=== PATIENT | female | born 1950 | race Caucasian/White ===

== ENCOUNTER 2019-12-31 17:35 | Emergency (ER) | payer MEDICARE, MEDICAID, SELFPAY ==
[2019-12-31] VITALS (7 sets, daily range): BP systolic 128–185; BP diastolic 70–96; PULSE 61–101; RESP 16–28; TEMP 36.3; O2SAT 94–96; BMI 30.9
--- NOTE | 2019-12-31 18:16 | CTR_ITS ---
PROCEDURE INFORMATION: Exam: CT Abdomen And Pelvis With Contrast Exam date and time: 12/31/2019 7:43 PM Age: 69 years old Clinical indication: Nausea and vomiting and other: Explosive black diarrhea; Abdominal pain; Localized; Right; Prior surgery; Surgery type: Gb TECHNIQUE: Imaging protocol: Computed tomography of the abdomen and pelvis with intravenous contrast. Radiation optimization: All CT scans at this facility use at least one of these dose optimization techniques: automated exposure control; mA and/or kV adjustment per patient size (includes targeted exams where dose is matched to clinical indication); or iterative reconstruction. Contrast material: VISI 320; Contrast volume: 95 ml; Contrast route: INTRAVENOUS (IV); COMPARISON: No relevant prior studies available. RADIATION DOSE METRICS: Total DLP (mGy-cm): 1495.49 FINDINGS: Lungs: Limited assessment lung bases fails to reveal evidence for active cardiopulmonary process. Coronary artery disease. No visible pericardial effusion. Liver: Left hepatic lobe cysts the largest measuring 3.9 cm x 3.3 cm. The dominant cyst contains few peripheral wall calcifications. Overall benign appearance. No visible hepatic mass. Gallbladder and bile ducts: Status post cholecystectomy. No visible abnormal intra or extrahepatic biliary ectasia. Pancreas: Pancreas unremarkable. No visible pancreatic ductal ectasia. Spleen: Normal. No splenomegaly. Adrenals: Adrenal glands unremarkable. Kidneys and ureters: Suspected non obstructing calyceal nephrolithiasis focus inferior pole left kidney under 5 mm. No hydronephrosis or perinephric fluid bilaterally. Renal arterial sclerosis. Stomach and bowel: Diverticulosis coli without current visible evidence of acute diverticulitis. Nonobstructive bowel pattern. No visible adynamic or reactive ileus. Appendix: No evidence of appendicitis. Intraperitoneal space: Unremarkable. No free air. No significant fluid collection. Vasculature: The abdominal aorta is nonaneurysmal. Moderate arterial sclerotic disease. Lymph nodes: Unremarkable. No enlarged lymph nodes. Bladder: Unremarkable as visualized. Reproductive: Unremarkable as visualized. Bones/joints: Degenerative disease and degenerative disc disease of the spine most advanced L3/4, L4/L5, and L5/S1. Advanced degenerative disc disease with spondylosis deformans T10/T11. No acute osseous abnormality. Mild scoliosis. Soft tissues: Unremarkable. CT/CT abdomen pelvis w con* [id number] IMPRESSION: 1. Currently no visible evidence of acute abdominal or pelvic pathologic process. 2. Diverticulosis coli without visible evidence of acute diverticulitis. 3. No visible evidence of appendicitis. 4. Suspected nonobstructing calyceal nephrolithiasis focus inferior pole left kidney. 5. Left hepatic lobe cysts. Radiation Dose CTDIVOL = (mGy): DLP = 1495.49 (mGy-cm)
[2019-12-31] MEDS: ondansetron 2 mg/ML SDV 2 mL 4 MG IVP (18:36)
[2019-12-31] MEDS: morphine 4 mg/mL SDV 1 mL IVP ×2 (18:37→19:28)
[2019-12-31] MEDS: sodium chloride 0.9% 1,000 ML 999 ML IV (18:38)
[2019-12-31 18:50] LABS: Basophils # 0.1 10^3/uL (0.0-0.1); Basophils % 0.6 %; Eosinophils # 0.3 10^3/uL (0.0-0.8); Eosinophils % 2.6 %; Hematocrit 50.5 % (37.0-47.0); Hemoglobin 16.8 g/dL (11.5-15.3); Lymphocytes # 2.4 10^3/uL (0.8-4.8); Lymphocytes % 22.3 %; Mean Corpuscular HGB Conc 33.3 g/dL (30.0-36.0); Mean Corpuscular Hemoglobin 30.9 pg (28.0-34.0); Mean Platelet Volume 8.5 fL (7.4-10.4); Monocytes # 0.8 10^3/uL (0.2-0.9); Monocytes % 7.6 %; Neutrophils # 7.04 10^3/uL (1.8-7.7); Neutrophils % 66.3 %; Nucleated Red Blood Cells % 0 %; Platelet Count 517 10^3/cmm (130-400); Red Blood Count 5.43 10^6/uL (4.1-5.3); Red Cell Distribution Width 14.7 % (12.1-15.1); White Blood Count 10.6 10^3/uL (4.0-10.0)
[2019-12-31] MEDS: lactated ringers 1,000 ML 999 ML IV (19:10)
[2019-12-31 19:18] LABS: INR 1.03 (0.8-1.2)
[2019-12-31 19:22] LABS: Lactate (Lactic Acid level) 1.4 mmol/L (0.5-2.2)
[2019-12-31 19:23] LABS: Alanine Aminotransferase 33 U/L (0-33); Alkaline Phosphatase 91 IU/L (35-105); Aspartate Amino Transferase 29 U/L (0-32); Blood Urea Nitrogen 25 mg/dL (8-23); Calcium 10.5 mg/dL (8.5-10.5); Carbon Dioxide 14 mmol/L (22-29); Chloride 106 mmol/L (98-107); Creatinine Clr Calc Pharmacy 53.3379; Glucose 103 mg/dL (65-115); Lipase 58 U/L (13-60); Osmolality Calculated 277 mOsm/kg (285-295); Sodium 135 mmol/L (136-145); Total Bilirubin 0.6 mg/dL (0.15-1.2)
--- NOTE | 2019-12-31 19:25 | ED_ITS ---
HPI - Abdominal Pain General: Chief Complaint: Abdominal Pain Stated Complaint: abd pain, diarrhea, black stools Time Seen by Provider: 12/31/19 18:25 Source: patient Mode of arrival: ambulatory Limitations: no limitations History of Present Illness: HPI narrative: Ms. Rodas is a nice 69-year-old female who comes in complaining of abdominal pain and diarrhea. She states her diarrhea is dark almost black in nature. She is had associated nausea and vomiting. She took 1 dose of Pepto-Bismol this morning and her diarrhea has stopped. She continues to complain of generalized abdominal pain and nauseousness. She denies any chest pain or shortness of breath. She denies any fevers or chills. She denies any urinary symptoms. She is unaware of anything that makes her symptoms better or worse other than the Pepto-Bismol made her diarrhea stop. The patient states that the pain is the most significant factor and because of that she is come in for evaluation. Associated Symptoms: Reports diarrhea, nausea and vomiting; Denies chills, coffee ground emesis, constipation, GI cramping, dysuria, fever(s), heartburn, hematochezia, hematuria, hematemesis and syncope Review of Systems Const: Denies: fever(s), chills, body aches, fatigue, malaise or diaphoresis Eyes: Denies: change in vision, blurry vision, blind spots, photophobia, eye discharge or eye redness ENMT: Denies: throat pain, odynophagia, hoarseness, swelling of lips/tongue, oral sores, ear or mastoid pain, ear discharge, change in hearing or nasal discharge Card: Denies: chest pain, palpitations, irregular heart rhythm, edema, lightheadedness, syncope, pre-syncope, dyspnea on exertion or orthopnea Resp: Denies: dyspnea, productive cough, non-productive cough, wheezing, hemoptysis or chest congestion GI: Reports: abdominal pain, nausea, vomiting and diarrhea; Denies: hematemesis, coffee ground emesis, heartburn, constipation, GI cramping or hematochezia : Denies: flank pain, dysuria, urinary frequency, urinary urgency or hematuria Musc: Denies: neck pain, back pain, extremity pain, extremity swelling, joint pain, joint swelling, joint redness, joint warmth or joint stiffness Skin/Breast: Denies: rash, pruritus, erythema, skin tenderness or jaundice Neuro: Denies: headache(s), numbness in extremities, weakness in extremities, sensory changes, lack of coordination, difficulty walking, dizziness, vertigo, confusion, Slurred speech present or seizure-like activity Tres/Lymph: Denies: easy bruising, easy bleeding, petechiae, purpura or enlarged lymph nodes All/Imm: Denies: urticaria, throat swelling, tongue swelling, facial swelling or acute wheezing PFSH ED PFSH: Medical History Anxiety Depression Hyperlipidemia Panic attacks Surgical History History of facial surgery S/P cholecystectomy Social History Smoking and tobacco status: heavy tobacco smoker Alcohol intake: never Physical Exam Const: COMMON NORMALS: no acute distress, patient oriented x3, no limitations, healthy appearing and well nourished GENERAL APPEARANCE: cooperative, well ke mpt and well developed HENMT: COMMON NORMALS: normocephalic, atraumatic, external ears normal, EAC's normal and Normal external nose present HEAD & SCALP: normal to inspection, normocephalic and atraumatic FACE & SINUS: normal facial exam and face symmetric NOSE: Normal external nose present and Normal nares present EXTERNAL EAR: Yes external ears normal EXTERNAL AUDITORY CANAL: EAC's normal MOUTH: Normal oral and palatal mucosa present, lip normal and tongue normal Eye: COMMON NORMALS: Equal, round and reactive pupils present and conjunctivae normal GENERAL EYE: appearance normal, both eyes and all related structures ALIGNMENT: Yes alignment normal PERIORBITAL: periorbital findings normal EYELID: eyelids normal CONJUNCTIVA: Yes conjunctivae normal SCLERA: sclerae normal PUPIL: Yes Equal, round and reactive pupils present Neck/C-Spine: COMMON NORMALS: full ROM, no lymphadenopathy, supple, no meningeal signs and no JVD GENERAL: Yes normal visual inspection and Yes trachea midline Chest: COMMONS NORMALS: normal inspection of the chest and normal palpation of entire chest wall Resp: COMMON NORMALS: normal respiratory effort, No retractions and No use of accessory muscles EFFORT & INSPECTION: Yes able to speak in complete sentences and Yes symmetric chest movement AUSCULTATION: no crackles, no rales, no rhonchi and no wheezes Cardio: COMMON NORMALS: no JVD, regular rate, regular rhythm, S1 normal heart sound present and S2 normal heart sound present RATE: regular rate RHYTHM: regular rhythm HEART SOUNDS: S1 normal heart sound present, S2 normal heart sound present, no click, no gallops, no murmurs, no rubs and abnormal split S2 GI: COMMON NORMALS: Soft to palpation and No hepatosplenomegaly present PALPATION: Yes Soft to palpation, No Tenderness to palpation present (GI), No Guarding due to palpation present (GI), No Rigid due to palpation, Yes No hepatosplenomegaly present, No Hernia present, No Palpable mass present and No Pulsatile mass present RECTAL EXAM: visual inspection normal, normal sphincter tone, External hemorrhoid(s) present and heme negative stool : COMMON NORMALS: Yes no CVA tenderness BLADDER/KIDNEY EXAM: Yes no CVA tenderness EXTERNAL FEMALE EXAM: No Hernia present Back/Pelvis: COMMON NORMALS: no CVA tenderness, thoracic and lumbar spine normal to inspection, no thoracic nor lumbar tenderness and thoraco-lumbar ROM normal Extremity: COMMON NORMALS: normal to inspection, full ROM, capillary refill normal, no joint enlargement, no clubbing, cyanosis or edema and no calf tenderness Neuro: COMMON NORMALS: patient oriented x3, CN's II-XII intact bilaterally, moves all extremities, no focal motor deficits and no sensory deficits noted MENINGEAL SIGNS: Yes no meningeal signs SPEECH: speech normal Psych: COMMON NORMALS: mental status grossly normal, Normal thought process present, cooperative, normal affect, speech normal and activity/motor behavior normal APPEARANCE: Yes well kempt SPEECH: Yes normal speech THOUGHT PROCESS: Normal thought process present Skin: COMMON NORMALS: no rashes or lesions noted, turgor normal, no jaundice, no petechiae and no mottling GENERAL SKIN EXAM: no rashes or lesions noted and turgor normal Course Vital Signs: Vital signs: Vital Signs Temperature 97.4 F L 12/31/19 17:55 Pulse Rate 81 12/31/19 22:31 Respiratory Rate 18 12/31/19 22:31 Blood Pressure 163/90 12/31/19 22:31 Pulse Oximetry 95 12/31/19 22:31 MDM - Abdominal Pain MDM Narrative: Medical decision making narrative: Ms. Rodas is a nice 69-year-old female who comes in with cramping abdominal pain and diarrhea. She is no longer vomiting and her diarrhea has stopped. The patient had a negative Hemoccult test here with no evidence of blood in her stools. She is not anemic she is actually hemoconcentrated but has responded well to IV fluids. She has a non-gap metabolic acidosis and I have recommended she stay in the hospital for further hydration and monitoring but she refuses. She states she is feeling so much better she wants to go home. On a blood gas her bicarbonate did come up from her chemistry although not a direct comparison it does show improvement. I have offered her multiple times to be admitted but she declines. She does agree to return here tomorrow for recheck. I will empirically put her on Cipro and Flagyl and gave her her first dose here. She agrees to return in the morning for recheck. Patient is eating, drinking and shows no sign of abdominal pain any longer. Her abdominal exam is benign. She again has been offered admission but declines. Lab Data: Attestation: I reviewed the patient's lab results. Labs: Lab Results 12/31/19 12/31/19 12/31/19 Range/Units 18:35 18:35 18:35 WBC 10.6 H (4.0-10.0) 10^3/ uL RBC 5.43 H (4.1-5.3) 10^6/u L Hgb 16.8 H (11.5-15.3) g/dL Hct 50.5 H (37.0-47.0) % MCV 93.0 (81-99) fL MCH 30.9 (28.0-34.0) pg MCHC 33.3 (30.0-36.0) g/dL RDW 14.7 (12.1-15.1) % Plt Count 517 H (130-400) 10^3/c mm MPV 8.5 (7.4-10.4) fL Neut % (Auto) 66.3 % Lymph % (Auto) 22.3 % [place] % (Auto) 7.6 % Eos % (Auto) 2.6 % Baso % (Auto) 0.6 % Neut # (Auto) 7.04 (1.8-7.7) 10^3/u L Lymph # (Auto) 2.4 (0.8-4.8) 10^3/u L [place] # (Auto) 0.8 (0.2-0.9) 10^3/u L Eos # (Auto) 0.3 (0.0-0.8) 10^3/u L Baso # (Auto) 0.1 (0.0-0.1) 10^3/u L Nucleated RBC % (a uto) 0 % Nucleated RBCs # 0.0 /100WBC PT 13.80 (12.1-14.9) SECO NDS INR 1.03 (0.8-1.2) Specimen Type Sample Site ABG pH (7.35-7.45) ABG pCO2 (35-45) mmHg ABG pO2 (80.0-100.0) mmH g ABG HCO3 (22-26) mmol/L ABG Base Excess (-2.0-2.0) mmol/ L Sánchez Test Hematocrit (37-47) % O2 Delivery Device FiO2 % Associate Professor Of Medicine ID Sodium 135 L (136-145) mmol/L Potassium 4.3 (3.5-5.1) mmol/L Chloride 106 (98-107) mmol/L Carbon Dioxide 14 L (22-29) mmol/L Anion Gap 19.3 H (5-19) BUN 25 H (8-23) mg/dL Creatinine 1.0 H (0.5-0.9) mg/dL GFR Calculation Not Reportable Glucose 103 (65-115) mg/dL Calculated Osmolal ity 277 L (285-295) mOsm/k g Lactate (0.5-2.2) mmol/L Calcium 10.5 (8.5-10.5) mg/dL Total Bilirubin 0.6 (0.15-1.2) mg/dL AST 29 (0-32) U/L ALT 33 (0-33) U/L Alkaline Phosphata se 91 (35-105) IU/L Total Protein 8.0 (6.6-8.7) g/dL Albumin 5.0 (3.5-5.2) g/dL Globulin 3.0 (1.3-4.6) g/dL Lipase 58 (13-60) U/L Urine Color (Yellow) Urine Appearance (CLEAR) Urine pH (5-7) Ur Specific Gravit y (1.005-1.030) Urine Protein (Negative) Urine Glucose (UA) (Normal) Urine Ketones (Negative) Urine Blood (Negative) Urine Nitrate (Negative) Urine Bilirubin (NEGATIVE) Urine Urobilinogen (Negative) mg/dL Ur Leukocyte Carol Ann ase (Negative) Urine RBC (0-2) /hpf Urine WBC (0-5) /hpf Ur Squamous Epith Cells (0-5) Amorphous Sediment Urine Bacteria (NONE) 12/31/19 12/31/19 12/31/19 Range/Units 18:35 19:52 21:17 WBC (4.0-10.0) 10^3/ uL RBC (4.1-5.3) 10^6/u L Hgb (11.5-15.3) g/dL Hct (37.0-47.0) % MCV (81-99) fL MCH (28.0-34.0) pg MCHC (30.0-36.0) g/dL RDW (12.1-15.1) % Plt Count (130-400) 10^3/c mm MPV (7.4-10.4) fL Neut % (Auto) % Lymph % (Auto) % [place] % (Auto) % Eos % (Auto) % Baso % (Auto) % Neut # (Auto) (1.8-7.7) 10^3/u L Lymph # (Auto) (0.8-4.8) 10^3/u L [place] # (Auto) (0.2-0.9) 10^3/u L Eos # (Auto) (0.0-0.8) 10^3/u L Baso # (Auto) (0.0-0.1) 10^3/u L Nucleated RBC % (a uto) % Nucleated RBCs # /100WBC PT (12.1-14.9) SECO NDS INR (0.8-1.2) Specimen Type Arterial Sample Site Brachial, left ABG pH 7.29 L (7.35-7.45) ABG pCO2 39.1 (35-45) mmHg ABG pO2 58.1 L (80.0-100.0) mmH g ABG HCO3 18.6 L (22-26) mmol/L ABG Base Excess -7.5 L (-2.0-2.0) mmol/ L Sánchez Test Pos Hematocrit 50.0 H (37-47) % O2 Delivery Device None FiO2 21.0 % Associate Professor Of Medicine ID [id number] Sodium (136-145) mmol/L Potassium (3.5-5.1) mmol/L Chloride (98-107) mmol/L Carbon Dioxide (22-29) mmol/L Anion Gap (5-19) BUN (8-23) mg/dL Creatinine (0.5-0.9) mg/dL GFR Calculation Glucose (65-115) mg/dL Calculated Osmolal ity (285-295) mOsm/k g Lactate 1.4 (0.5-2.2) mmol/L Calcium (8.5-10.5) mg/dL Total Bilirubin (0.15-1.2) mg/dL AST (0-32) U/L ALT (0-33) U/L Alkaline Phosphata se (35-105) IU/L Total Protein (6.6-8.7) g/dL Albumin (3.5-5.2) g/dL Globulin (1.3-4.6) g/dL Lipase (13-60) U/L Urine Color Yellow (Yellow) Urine Appearance Cloudy (CLEAR) Urine pH 5 (5-7) Ur Specific Gravit y 1.015 (1.005-1.030) Urine Protein Neg (Negative) Urine Glucose (UA) Norm (Normal) Urine Ketones Negative (Negative) Urine Blood Neg (Negative) Urine Nitrate Negative (Negative) Urine Bilirubin Neg (NEGATIVE) Urine Urobilinogen Norm (Negative) mg/dL Ur Leukocyte Carol Ann ase Negative (Negative) Urine RBC 0-4 H (0-2) /hpf Urine WBC 0-4 H (0-5) /hpf Ur Squamous Epith Cells 5-10 H (0-5) Amorphous Sediment Not Reportable Urine Bacteria 1+ H (NONE) Imaging Data ^: CT Abd/Pel: Radiologist's impression: [address] [address] [address] Scan Report Signed Patient: Sindhu Rodas Unit #: [id number] : 1950 Age/Sex: 69 / F ADM Date: 08/03/20 Loc: ER Room/Bed: Attending Dr: Ordering Provider/Ordering MD: Óscar Ho DO Date of Service: 12/31/19 Procedure(s): CT abdomen pelvis w con* [id number] Accession Number(s): [id number] Report Number: [id number] PROCEDURE INFORMATION: Exam: CT Abdomen And Pelvis With Contrast Exam date and time: 12/31/2019 7:43 PM Age: 69 years old Clinical indication: Nausea and vomiting and other: Explosive black diarrhea; Abdominal pain; Localized; Right; Prior surgery; Surgery type: Gb TECHNIQUE: Imaging protocol: Computed tomography of the abdomen and pelvis with intravenous contrast. Radiation optimization: All CT scans at this facility use at least one of these dose optimization techniques: automated exposure control; mA and/or kV adjustment per patient size (includes targeted exams where dose is matched to clinical indication); or iterative reconstruction. Contrast material: VISI 320; Contrast volume: 95 ml; Contrast route: INTRAVENOUS (IV); COMPARISON: No relevant prior studies available. RADIATION DOSE METRICS: Total DLP (mGy-cm): 1495.49 FINDINGS: Lungs: Limited assessment lung bases fails to reveal evidence for active cardiopulmonary process. Coronary artery disease. No visible pericardial effusion. Liver: Left hepatic lobe cysts the largest measuring 3.9 cm x 3.3 cm. The dominant cyst contains few peripheral wall calcifications. Overall benign appearance. No visible hepatic mass. Gallbladder and bile ducts: Status post cholecystectomy. No visible abnormal intra or extrahepatic biliary ectasia. Pancreas: Pancreas unremarkable. No visible pancreatic ductal ectasia. Spleen: Normal. No splenomegaly. Adrenals: Adrenal glands unremarkable. Kidneys and ureters: Suspected non obstructing calyceal nephrolithiasis focus inferior pole left kidney under 5 mm. No hydronephrosis or perinephric fluid bilaterally. Renal arterial sclerosis. Stomach and bowel: Diverticulosis coli without current visible evidence of acute diverticulitis. Nonobstructive bowel pattern. No visible adynamic or reactive ileus. Appendix: No evidence of appendicitis. Intraperitoneal space: Unremarkable. No free air. No significant fluid collection. Vasculature: The abdominal aorta is nonaneurysmal. Moderate arterial sclerotic disease. Lymph nodes: Unremarkable. No enlarged lymph nodes. Bladder: Unremarkable as visualized. Reproductive: Unremarkable as visualized. Bones/joints: Degenerative disease and degenerative disc disease of the spine most advanced L3/4, L4/L5, and L5/S1. Advanced degenerative disc disease with spondylosis deformans T10/T11. No acute osseous abnormality. Mild scoliosis. Soft tissues: Unremarkable. CT/CT abdomen pelvis w con* [id number] IMPRESSION: 1. Currently no visible evidence of acute abdominal or pelvic pathologic process. 2. Diverticulosis coli without visible evidence of acute diverticulitis. 3. No visible evidence of appendicitis. 4. Suspected nonobstructing calyceal nephrolithiasis focus inferior pole left kidney. 5. Left hepatic lobe cysts. Radiation Dose CTDIVOL = (mGy): DLP = 1495.49 (mGy-cm) Dictated By: Bowen De La Cruz Signed By: Bowen De La Cruz Signed Date/Time: 12/31/192103 DD/ 02 EKG Data ^: EKG 1: Attestation: I personally reviewed and interpreted this EKG as follows: EKG interpretation date: 12/31/19 EKG interpretation time: 19:38 Interpretation: Normal sinus rhythm at 89 beats a minute, no acute ST-T wave changes, no blocks, normal intervals. Discharge Plan Discharge Patient Disposition: Home Clinical Impression: Abdominal pain Qualifiers: Abdominal location: generalized Qualified Code(s): R10.84 - Generalized abdominal pain Diarrhea Qualifiers: Diarrhea type: unspecified type Qualified Code(s): R19.7 - Diarrhea, unspecified Condition: Stable Prescriptions: New Flagyl 500 mg tablet 500 mg PO Q8H 7 Days Qty: 21 RF: 0 Cipro 500 mg tablet 500 mg PO BID Qty: 20 RF: 0 No Action Zyrtec 10 mg Tablet 10 mg PO DAILY RF: 0 tizanidine 4 mg tablet 4 mg PO TID PRN (Reason: UNKNOWN) RF: 0 simvastatin 10 mg tablet 10 mg PO BEDTIME RF: 0 venlafaxine 150 mg capsule,extended release 24hr 150 mg PO DAILY RF: 0 Aspir-81 81 mg Tablet,Delayed Release (Dr/Ec) 81 mg PO DAILY RF: 0 meclizine 25 mg tablet 25 mg PO TID PRN (Reason: UNKNOWN) RF: 0 gemfibrozil 600 mg tablet 600 mg PO BID RF: 0 Aleve 220 mg Tablet 220 mg PO PRN RF: 0 ibuprofen 200 mg Tablet 800 mg PO PRN RF: 0 montelukast 10 mg tablet 10 mg PO DAILY PRN (Reason: UNKNOWN) RF: 0 Ventolin HFA 90 mcg/actuation HFA aerosol inhaler 2 puff INHALATION Q4H PRN (Reason: Shortness Of Breath) RF: 0 lisinopril 40 mg tablet 40 mg PO DAILY RF: 0 diazepam 5 mg tablet 5 mg PO BID PRN (Reason: UNKNOWN) RF: 0 azelastine 0.15 % (205.5 mcg) spray,non-aerosol 2 spray INTRANASAL BID PRN (Reason: UNKNOWN) RF: 0 Coricidin HBP Cold and Flu See Rx Instructions .ROUTE .COMPLEX RF: 0 Discharge Orders: Discharge Order (Routine); Ordered 12/31/19 Ordered By: Brit Cheng Referrals: Brit Cheng [Emergency Provider] - 1-3 days (Return here to the ER tomorrow morning for recheck of your blood work and a repeat abdominal exam. Return sooner for any worsening of your symptoms.) Cornelius Pepper DO [Primary Care Provider] - 1-3 days Discharge Diet: Advance as tolerated and Clear Liquid Discharge Activity: Increase activity as tolerated Patient Instructions: Acute Diarrhea (ED), Abdominal Pain (ED) Activity Restrictions/Additional Instructions: Please return to the ER immediately for any of the signs or symptoms listed on your discharge instruction sheets, worsening/changing of your symptoms, you are not getting better as quickly as expected, or for ANY other cause or concerns. You have been offered admission and further hydration and evaluation and care here but have declined. It is imperative that she follow-up tomorrow morning for recheck. If you develop any new symptoms at all or any worsening of your symptoms please return here to the ER immediately for recheck. Discharge Date/Time: 12/31/19 22:32 Coding Level of Care Code ED Cost Recovery Technician for Amyg Fwd Exam Comprehensive
--- NOTE | 2019-12-31 19:27 | ECG_ITS ---
[facility] [place] Date: 2019-12-31 Pat Name: Sindhu Rodas Department: Room: Gender: Female Color Coater: : 1950 Requested By: Brit Roman Order Number: [id number] Eugenie MD: Kandice Lubin M.D. Measurements Intervals [place] Rate: 89 P: 55 KS: 133 QRS: 15 QRSD: 100 T: 48 QT: 380 QTc: 463 Interpretive Statements SINUS RHYTHM No previous ECG available for comparison Nonspecific T wave changes Electronically Signed On 12-31-2019 20:34:53 CDT by Kandice Lubin M.D. [id number]
[2019-12-31] MEDS: metoclopramide 5 mg/mL SDV 2 mL 10 MG IV (19:28)
[2019-12-31 19:36] LABS: Anion Gap 19.3 (5-19)
[2019-12-31 19:37] LABS: Potassium 4.3 mmol/L (3.5-5.1)
[2019-12-31] MEDS: iodixanol 320 mg/mL 100mL Btl IV (20:23)
[2019-12-31 20:24] LABS: Add Urine Microscopic? YES; Bacteria Urine 1+; Bilirubin Urine Neg (NEGATIVE); Blood Urine Neg (Negative); Glucose Urine UA Norm (Normal); Ketones Urine Negative (Negative); Leukocyte Esterase Urine Negative (Negative); Nitrate Urine Negative (Negative); Protein Urine Neg (Negative); RBC Urine 0-4 /hpf (0-2); Specific Gravity, Urine 1.015 (1.005-1.030); Urine Appearance Cloudy (CLEAR); Urine Color Yellow (Yellow); Urobilinogen Urine Norm (Negative); WBC Urine 0-4 /hpf (0-5); pH Urine 5 (5-7)
[2019-12-31 21:25] LABS: ABG PCO2 39.1 mmHg (35-45); ABG PH Result 7.29 (7.35-7.45); Base Excess ABG -7.5 mmol/L (-2.0-2.0); Blood Gas Allen Test Pos; Blood Gas Sample Site Brachial, left; Blood Gas Sample Type Arterial; HCO3 ABG 18.6 mmol/L (22-26); PO2 ABG 58.1 mmHg (80.0-100.0)
[2019-12-31] MEDS: dicyclomine 20 mg Tablet PO (22:02)
[2019-12-31] MEDS: ciprofloxacin 500 mg Tablet PO (22:30)
[2019-12-31] MEDS: metroNIDAZOLE 500 MG Tablet PO (22:30)
--- NOTE | 2020-01-01 12:07 | PC.NURSE ---
[facility] pharmacy called to report prescribed cipro is contrandicated with pt's tizanidine. Per verbal order of Dr. Webster, prescription changed to Levaquin 500mg PO daily *7 days.
== END 2019-12-31 22:32 | disposition home or self-care (01) ==
PROVIDERS: Family Medicine; Emergency Provider Emergency Medicine; PCP Internal Medicine
DX: R10.84 Generalized abdominal pain (principal); R19.7 Diarrhea, unspecified; Z79.82 Long term (current) use of aspirin; E78.5 Hyperlipidemia, unspecified; F17.210 Nicotine dependence, cigarettes, uncomplicated
CPT/HCPCS: 12345; 36415; 36600; 74177; 80053; 81001; 81003; 82272; 82803; 83605; 83690; 85025; 85610; 93005; 96365; 96375; 96376; 99283; 99284; J2270; J2405; J2765; J7030; Q9967

== ENCOUNTER 2020-01-01 15:13 | Emergency (ER) | payer MEDICARE, MEDICAID, SELFPAY ==
[2020-01-01 15:26] VITALS: BP 128/72; PULSE 84; RESP 18; TEMP 36.6; O2SAT 94; BMI 30.9
[2020-01-01 16:07] VITALS: PULSE 77; RESP 16; O2SAT 94
[2020-01-01 16:12] LABS: Basophils # 0.1 10^3/uL (0.0-0.1); Basophils % 0.6 %; Eosinophils # 0.2 10^3/uL (0.0-0.8); Eosinophils % 2.9 %; Hematocrit 47.5 % (37.0-47.0); Hemoglobin 15.3 g/dL (11.5-15.3); Lymphocytes # 1.5 10^3/uL (0.8-4.8); Lymphocytes % 17.7 %; Mean Corpuscular HGB Conc 32.2 g/dL (30.0-36.0); Mean Corpuscular Hemoglobin 30.4 pg (28.0-34.0); Mean Corpuscular Volume 94.4 fL (81-99); Mean Platelet Volume 8.4 fL (7.4-10.4); Monocytes # 0.6 10^3/uL (0.2-0.9); Monocytes % 6.7 %; Neutrophils # 5.97 10^3/uL (1.8-7.7); Neutrophils % 71.7 %; Nucleated Red Blood Cells % 0 %; Platelet Count 451 10^3/cmm (130-400); Red Blood Count 5.03 10^6/uL (4.1-5.3); Red Cell Distribution Width 14.9 % (12.1-15.1); White Blood Count 8.3 10^3/uL (4.0-10.0)
[2020-01-01 16:20] LABS: Add Urine Microscopic? YES; Bilirubin Urine Neg (NEGATIVE); Blood Urine Neg (Negative); Glucose Urine UA Norm (Normal); Ketones Urine Negative (Negative); Leukocyte Esterase Urine Trace (Negative); Nitrate Urine Negative (Negative); Protein Urine Neg (Negative); Urine Appearance Clear (CLEAR); Urine Color Yellow (Yellow); Urobilinogen Urine 1 mg/dL (Negative); pH Urine 5 (5-7)
[2020-01-01 16:22] LABS: Add Urine Culture? No; Bacteria Urine TRACE; Mucus Urine TRACE; RBC Urine 0-4 /hpf (0-2); Squamous Epithelial Cell Urine 15-25 (0-5)
[2020-01-01 16:31] LABS: Blood Gas Allen Test Pos; Blood Gas Operator Identificat MONRO; Blood Gas Sample Type Venous; Lactate (Lactic Acid level) 0.9 mmol/L (0.5-2.2); Oxygen Device ROOM AIR
[2020-01-01 16:34] LABS: Base Excess VBG -4.4 mmol/L (-3.0-3.0); HCO3 VBG 18.7 mmol/L (24-28); pH VBG 7.41 (7.32-7.42)
[2020-01-01 16:41] LABS: Procalcitonin 0.05 ng/mL (0-0.5)
[2020-01-01 16:52] LABS: Alanine Aminotransferase 36 U/L (0-33); Albumin Level 4.5 g/dL (3.5-5.2); Alkaline Phosphatase 87 IU/L (35-105); Anion Gap 15.3 (5-19); Aspartate Amino Transferase 27 U/L (0-32); Blood Urea Nitrogen 18 mg/dL (8-23); C Reactive Protein 6.4 mg/L (0.0-4.9); Calcium 9.4 mg/dL (8.5-10.5); Carbon Dioxide 17 mmol/L (22-29); Chloride 108 mmol/L (98-107); Creatinine Clr Calc Pharmacy 66.6724; Globulin 3.3 g/dL (1.3-4.6); Glucose 134 mg/dL (65-115); Lipase 59 U/L (13-60); Osmolality Calculated 280 mOsm/kg (285-295); Potassium 4.3 mmol/L (3.5-5.1); Sodium 136 mmol/L (136-145); Total Bilirubin 0.6 mg/dL (0.15-1.2); Total Protein 7.8 g/dL (6.6-8.7)
[2020-01-01 17:00] VITALS: BP 153/87; PULSE 75; RESP 18; O2SAT 92
--- NOTE | 2020-01-01 17:22 | ED_ITS ---
HPI - Abdominal Pain General: Chief Complaint: Abdominal Pain Stated Complaint: was told to come back by jaida Time Seen by Provider: 01/01/20 15:33 History of Present Illness: HPI narrative: This patient is a 69-year-old female who is returning today for recheck after an ED visit yesterday. She was seen yesterday evening by Dr. Umanzor for abdominal pain and diarrhea. She was acidotic with some abnormal labs and he wanted to admit her. She did not want to stay and he letter to go home with the Lulu so that she return today for reevaluation. She said she is feeling better. She is getting her antibiotics filled. Of note the pharmacy called and asked to change her Cipro due to interactions with her other medications and I did change that to Levaquin. She has never had any similar stomach problems. We did talk about the possibility of COVID which can present with diarrhea. She said she really has just been staying home, has not been to the store to [employer]. However she was agreeable to a COVID test. MD elicited complaint: abdominal pain Pertinent past history: none Associated Symptoms: Reports diarrhea and nausea Review of Systems GI: Reports: abdominal pain, nausea and diarrhea [facility] ED [facility]: Medical History (Updated 01/01/20 @ 17:12 by Ella Webster MD) Anxiety Depression Hyperlipidemia Panic attacks Surgical History History of facial surgery S/P cholecystectomy Social History Smoking and tobacco status: heavy tobacco smoker Alcohol intake: never Physical Exam Const: COMMON NORMALS: no acute distress, patient oriented x3, no limitations and alert GENERAL APPEARANCE: cooperative and comfortable HENMT: HEAD & SCALP: normal to inspection FACE & SINUS: normal facial exam Eye: GENERAL EYE: appearance normal, both eyes and all related structures Neck/C-Spine: COMMON NORMALS: supple, no meningeal signs and no JVD Chest: COMMONS NORMALS: normal inspection of the chest Resp: COMMON NORMALS: normal respiratory effort, No use of accessory muscles and clear to auscultation bilaterally AUSCULTATION: clear to auscultation bilaterally Cardio: COMMON NORMALS: no JVD, regular rate, regular rhythm and No murmurs present (Cardio) RATE: regular rate RHYTHM: regular rhythm GI: COMMON NORMALS: Normal to inspection, nondistended, normoactive bowel sounds present and Soft to palpation INSPECTION: Yes normal to inspection AUSCULTATION: Yes normoactive bowel sounds PALPATION: Yes Soft to palpation and Yes Tenderness to palpation present (GI) (Mild) Details: RUQ Back/Pelvis: COMMON NORMALS: thoracic and lumbar spine normal to inspection Extremity: COMMON NORMALS: normal to inspection Neuro: COMMON NORMALS: patient oriented x3, moves all extremities, no focal motor deficits and no sensory deficits noted SENSORIUM/ORIENTATION: Yes alert MENINGEAL SIGNS: Yes no meningeal signs Psych: COMMON NORMALS: mental status grossly normal, cooperative and normal affect Skin: COMMON NORMALS: no rashes or lesions noted and turgor normal GENERAL SKIN EXAM: no rashes or lesions noted and turgor normal Course ED course: Labs were repeated. Blood counts are still good. Acidosis has improved with a normal pH on a venous blood gas. CO2 on the chemistry went from 14-17. She is feeling better and tolerating food and fluids. I am going to let her go home but she again understands to return if worse in any way or if not improving. A COVID test was obtained and sent. Vital Signs: Vital signs: Vital Signs Temperature 97.9 F 01/01/20 15:26 Pulse Rate 77 01/01/20 16:07 Respiratory Rate 16 01/01/20 16:07 Blood Pressure 128/72 01/01/20 15:26 Pulse Oximetry 94 01/01/20 16:07 MDM - Abdominal Pain Lab Data: Labs: Lab Results 01/01/20 01/01/20 01/01/20 Range/Units 15:53 16:05 16:05 WBC 8.3 (4.0-10.0) 10^3/ uL RBC 5.03 (4.1-5.3) 10^6/u L Hgb 15.3 (11.5-15.3) g/dL Hct 47.5 H (37.0-47.0) % MCV 94.4 (81-99) fL MCH 30.4 (28.0-34.0) pg MCHC 32.2 (30.0-36.0) g/dL RDW 14.9 (12.1-15.1) % Plt Count 451 H (130-400) 10^3/c mm MPV 8.4 (7.4-10.4) fL Neut % (Auto) 71.7 % Lymph % (Auto) 17.7 % Bartholomew % (Auto) 6.7 % Eos % (Auto) 2.9 % Baso % (Auto) 0.6 % Neut # (Auto) 5.97 (1.8-7.7) 10^3/u L Lymph # (Auto) 1.5 (0.8-4.8) 10^3/u L Bartholomew # (Auto) 0.6 (0.2-0.9) 10^3/u L Eos # (Auto) 0.2 (0.0-0.8) 10^3/u L Baso # (Auto) 0.1 (0.0-0.1) 10^3/u L Nucleated RBC % (a uto) 0 % Nucleated RBCs # 0.0 /100WBC Specimen Type Sánchez Test VBG pH (7.32-7.42) VBG pCO2 (41-51) mmHg VBG pO2 (25-40) mmHg VBG HCO3 (24-28) mmol/L VBG Base Excess (-3.0-3.0) mmol/ L O2 Delivery Device FiO2 % Senior Qa Tester ID Sodium 136 (136-145) mmol/L Potassium 4.3 (3.5-5.1) mmol/L Chloride 108 H (98-107) mmol/L Carbon Dioxide 17 L (22-29) mmol/L Anion Gap 15.3 (5-19) BUN 18 (8-23) mg/dL Creatinine 0.8 (0.5-0.9) mg/dL GFR Calculation Not Reportable Glucose 134 H (65-115) mg/dL Calculated Osmolal ity 280 L (285-295) mOsm/k g Lactate (0.5-2.2) mmol/L Calcium 9.4 (8.5-10.5) mg/dL Total Bilirubin 0.6 (0.15-1.2) mg/dL AST 27 (0-32) U/L ALT 36 H (0-33) U/L Alkaline Phosphata se 87 (35-105) IU/L C-Reactive Protein 6.4 H (0.0-4.9) mg/L Total Protein 7.8 (6.6-8.7) g/dL Albumin 4.5 (3.5-5.2) g/dL Globulin 3.3 (1.3-4.6) g/dL Lipase 59 (13-60) U/L Procalcitonin 0.05 (0-0.5) ng/mL Urine Color Yellow (Yellow) Urine Appearance Clear (CLEAR) Urine pH 5 (5-7) Ur Specific Gravit y 1.020 (1.005-1.030) Urine Protein Neg (Negative) Urine Glucose (UA) Norm (Normal) Urine Ketones Negative (Negative) Urine Blood Neg (Negative) Urine Nitrate Negative (Negative) Urine Bilirubin Neg (NEGATIVE) Urine Urobilinogen 1 H (Negative) mg/dL Ur Leukocyte Carol Ann ase Trace H (Negative) Urine RBC 0-4 H (0-2) /hpf Urine WBC 5-10 H (0-5) /hpf Ur Squamous Epith Cells 15-25 H (0-5) Amorphous Sediment Not Reportable Urine Bacteria Trace (NONE) Urine Mucus Trace 01/01/20 01/01/20 Range/Units 16:05 16:05 WBC (4.0-10.0) 10^3/ uL RBC (4.1-5.3) 10^6/u L Hgb (11.5-15.3) g/dL Hct (37.0-47.0) % MCV (81-99) fL MCH (28.0-34.0) pg MCHC (30.0-36.0) g/dL RDW (12.1-15.1) % Plt Count (130-400) 10^3/c mm MPV (7.4-10.4) fL Neut % (Auto) % Lymph % (Auto) % Bartholomew % (Auto) % Eos % (Auto) % Baso % (Auto) % Neut # (Auto) (1.8-7.7) 10^3/u L Lymph # (Auto) (0.8-4.8) 10^3/u L Bartholomew # (Auto) (0.2-0.9) 10^3/u L Eos # (Auto) (0.0-0.8) 10^3/u L Baso # (Auto) (0.0-0.1) 10^3/u L Nucleated RBC % (a uto) % Nucleated RBCs # /100WBC Specimen Type Venous Sánchez Test Pos VBG pH 7.41 (7.32-7.42) VBG pCO2 29.0 L (41-51) mmHg VBG pO2 63.0 H (25-40) mmHg VBG HCO3 18.7 L (24-28) mmol/L VBG Base Excess -4.4 L (-3.0-3.0) mmol/ L O2 Delivery Device Room air FiO2 21.0 % Senior Qa Tester ID Monro Sodium (136-145) mmol/L Potassium (3.5-5.1) mmol/L Chloride (98-107) mmol/L Carbon Dioxide (22-29) mmol/L Anion Gap (5-19) BUN (8-23) mg/dL Creatinine (0.5-0.9) mg/dL GFR Calculation Glucose (65-115) mg/dL Calculated Osmolal ity (285-295) mOsm/k g Lactate 0.9 (0.5-2.2) mmol/L Calcium (8.5-10.5) mg/dL Total Bilirubin (0.15-1.2) mg/dL AST (0-32) U/L ALT (0-33) U/L Alkaline Phosphata se (35-105) IU/L C-Reactive Protein (0.0-4.9) mg/L Total Protein (6.6-8.7) g/dL Albumin (3.5-5.2) g/dL Globulin (1.3-4.6) g/dL Lipase (13-60) U/L Procalcitonin (0-0.5) ng/mL Urine Color (Yellow) Urine Appearance (CLEAR) Urine pH (5-7) Ur Specific Gravit y (1.005-1.030) Urine Protein (Negative) Urine Glucose (UA) (Normal) Urine Ketones (Negative) Urine Blood (Negative) Urine Nitrate (Negative) Urine Bilirubin (NEGATIVE) Urine Urobilinogen (Negative) mg/dL Ur Leukocyte Carol Ann ase (Negative) Urine RBC (0-2) /hpf Urine WBC (0-5) /hpf Ur Squamous Epith Cells (0-5) Amorphous Sediment Urine Bacteria (NONE) Urine Mucus Discharge Plan Discharge Patient Disposition: Home Clinical Impression: COVID-19 virus test result unknown Diarrhea Qualifiers: Diarrhea type: unspecified type Qualified Code(s): R19.7 - Diarrhea, unspecified Condition: Stable Prescriptions: New levofloxacin 500 mg tablet 500 mg PO DAILY 5 Days RF: 0 Discontinued ciprofloxacin HCl [Cipro] 500 mg tablet 500 mg PO BID Qty: 20 RF: 0 No Action cetirizine [Zyrtec] 10 mg Tablet 10 mg PO DAILY RF: 0 tizanidine 4 mg tablet 4 mg PO TID PRN (Reason: UNKNOWN) RF: 0 simvastatin 10 mg tablet 10 mg PO BEDTIME RF: 0 venlafaxine 150 mg capsule,extended release 24hr 150 mg PO DAILY RF: 0 aspirin [Aspir-81] 81 mg Tablet,Delayed Release (Dr/Ec) 81 mg PO DAILY RF: 0 meclizine 25 mg tablet 25 mg PO TID PRN (Reason: Dizziness) RF: 0 gemfibrozil 600 mg tablet 600 mg PO BID RF: 0 naproxen sodium [Aleve] 220 mg Tablet 220 mg PO PRN PRN (Reason: Pain) RF: 0 ibuprofen 200 mg Tablet 800 mg PO Q6H PRN (Reason: Pain) RF: 0 montelukast 10 mg tablet 10 mg PO DAILY PRN (Reason: Cough) RF: 0 albuterol sulfate [Ventolin HFA] 90 mcg/actuation HFA aerosol inhaler 2 puff INHALATION Q4H PRN (Reason: Shortness Of Breath) RF: 0 lisinopril 40 mg tablet 40 mg PO DAILY RF: 0 diazepam 5 mg tablet 5 mg PO BID PRN (Reason: UNKNOWN) RF: 0 azelastine 0.15 % (205.5 mcg) spray,non-aerosol 2 spray INTRANASAL BID PRN (Reason: UNKNOWN) RF: 0 Coricidin HBP Cold and Flu See Rx Instructions .ROUTE .COMPLEX RF: 0 metronidazole [Flagyl] 500 mg tablet 500 mg PO Q8H 7 Days Qty: 21 RF: 0 Discharge Orders: Discharge Order (Routine); Ordered 01/01/20 Ordered By: Ella Webster Referrals: Cornelius Pepper DO [Primary Care Provider] - Discharge Diet: Advance as tolerated Discharge Activity: Resume usual activity Patient Instructions: Acute Diarrhea (ED) Activity Restrictions/Additional Instructions: Start the antibiotics that were prescribed as soon as you get them. Continue to make sure you are drinking enough fluids. Gradually advance your diet from c lear liquids, Jell-O, broth and crackers to more substantial food as her symptoms improve. Return to the emergency department if new or worse symptoms or not able to tolerate fluids or antibiotics. Coding Level of Care Code ED Literary Agent for José Padgett
[2020-01-03 10:51] LABS: Quest SARS-CoV-2 RNA NOT DETECTED (NOT DETECTED)
== END 2020-01-01 17:34 | disposition home or self-care (01) ==
PROVIDERS: Emergency Provider Emergency Medicine; PCP Internal Medicine
DX: R19.7 Diarrhea, unspecified (principal); Z79.82 Long term (current) use of aspirin; E78.5 Hyperlipidemia, unspecified; F17.210 Nicotine dependence, cigarettes, uncomplicated
CPT/HCPCS: 12345; 36415; 80053; 81001; 82803; 83605; 83690; 84145; 85025; 86140; 87635; 99282; 99283

== ENCOUNTER 2020-02-24 13:48 | Emergency (ER) | payer MEDICARE, MEDICAID, SELFPAY ==
[2020-02-24 15:18] VITALS: BP 191/83; PULSE 60; RESP 16; TEMP 36.3; O2SAT 95; BMI 33.6
--- NOTE | 2020-02-24 15:45 | CTR_ITS ---
PROCEDURE INFORMATION: Exam: CT Abdomen And Pelvis Without Contrast Exam date and time: 02/24/2020 3:49 PM Age: 69 years old Clinical indication: Abdominal pain; Right; Prior surgery; Surgery date: 6+ months; Surgery type: Gb; Patient HX: HX of stones C/O R flank pain x 4 days; Additional info: Right flank pain, history of kidney stones. TECHNIQUE: Imaging protocol: Computed tomography of the abdomen and pelvis without contrast. Radiation optimization: All CT scans at this facility use at least one of these dose optimization techniques: automated exposure control; mA and/or kV adjustment per patient size (includes targeted exams where dose is matched to clinical indication); or iterative reconstruction. COMPARISON: CT abdomen pelvis w con* [id number] 12/31/2019 8:14 PM RADIATION DOSE METRICS: Total DLP (mGy-cm): 1787.85 FINDINGS: Liver: There is a 1.4 cm left liver cyst as well as a 3.9 cm liver cyst. Gallbladder and bile ducts: There has been a cholecystectomy. Pancreas: Normal. No ductal dilation. Spleen: Normal. No splenomegaly. Adrenals: Normal. No mass. Kidneys and ureters: There are left renal calcifications. There are bilateral renal vascular calcifications. No hydronephrosis. Stomach and bowel: Colonic diverticula are present although there are no CT findings to suggest diverticulitis. No bowel obstruction or wall thickening. Appendix: The appendix is visualized and appears normal. Intraperitoneal space: Unremarkable. No free air. No significant fluid collection. Vasculature: Unremarkable. No abdominal aortic aneurysm. Lymph nodes: Unremarkable. No enlarged lymph nodes. Urinary bladder: Unremarkable as visualized. Reproductive: Unremarkable as visualized. Bones/joints: Unremarkable. No acute fracture. Soft tissues: Unremarkable. CT/CT kidney stone [id number] IMPRESSION: There are no acute concerning abnormalities. Radiation Dose CTDIVOL = (mGy): DLP = 1787.85 (mGy-cm)
--- NOTE | 2020-02-24 15:57 | W.ED.GENADLT ---
HPI - General Adult General: Chief complaint: Nausea/Vomiting/Diarrhea Stated complaint: flank pain/diarrhea Time Seen by Provider: 02/24/20 15:33 Source: patient Mode of arrival: EMS Limitations: no limitations History of Present Illness: MD complaint: Flank pain Onset (ago): day(s) (4) Location: abdomen and right Radiation: abdomen and flank Severity: severe Quality: stabbing Pain Consistency: constant Relieving factors: none Exacerbating factors: none Associated symptoms: Reports nausea; Deny chest pain, confusion, cough, diaphoresis, decreased appetite, dyspnea, fevers/chills, headache(s), malaise, rash, palpitations, seizures, short of breath, syncope, vomiting or weakness Review of Systems General: Reports: 10 or more systems reviewed and unremarkable except in HPI and below Const: Denies: malaise or diaphoresis Eyes: Denies: change in vision or blurry vision ENMT: Denies: throat pain, enlarged tonsils, odynophagia, hoarseness, mouth pain or swelling of lips/tongue Card: Denies: chest pain, palpitations or syncope Resp: Denies: dyspnea GI: Reports: nausea; Denies: vomiting : Denies: flank pain, difficulty voiding, dysuria, urinary frequency, urinary urgency or urinary hesitancy Musc: Denies: neck pain, back pain or extremity swelling Skin/Breast: Denies: rash Neuro: Denies: headache(s) or confusion Endo: Denies: polyuria, polydipsia or tired all the time PFS ED PFSH: Medical History (Reviewed 02/24/20 @ 15:58 by Jerson Carlos MD, [facility] [place]) Anxiety Depression Hyperlipidemia Panic attacks Surgical History (Reviewed 02/24/20 @ 15:58 by Jerson Carlos MD, [facility] [place]) History of facial surgery S/P cholecystectomy Social History (Reviewed 02/24/20 @ 15:58 by Jerson Carlos MD, [facility] [place]) Smoking and tobacco status: heavy tobacco smoker Alcohol intake: never Substance/Drug Use: never Physical Exam Const: COMMON NORMALS: no acute distress, average body habitus, patient oriented x3, no limitations, healthy appearing, alert and well nourished Neck/C-Spine: COMMON NORMALS: no meningeal signs and no JVD Resp: COMMON NORMALS: normal respiratory effort, No retractions, No use of accessory muscles, clear to auscultation bilaterally and percussion normal AUSCULTATION: clear to auscultation bilaterally PERCUSSION: percussion normal Cardio: COMMON NORMALS: no JVD, regular rate, regular rhythm, S1 normal heart sound present, S2 normal heart sound present, No gallops present (Cardio), No clicks present (Cardio), No murmurs present (Cardio), No rub (Cardio) and Peripheral pulses 2+ throughout RATE: regular rate RHYTHM: regular rhythm HEART SOUNDS: S1 normal heart sound present and S2 normal heart sound present PERIPHERAL PULSES: Peripheral pulses 2+ throughout GI: COMMON NORMALS: Normal to inspection, nondistended, normoactive bowel sounds present, Soft to palpation, No hepatosplenomegaly present, no masses and no bruits PALPATION: Yes Soft to palpation, Yes Tenderness to palpation present (GI) Details: RLQ and Yes No hepatosplenomegaly present : BLADDER/KIDNEY EXAM: Yes CVA tenderness on the right Back/Pelvis: GENERAL BACK: Yes CVA tenderness Extremity: COMMON NORMALS: normal to inspection, full ROM, capillary refill normal, no calf tenderness and no pedal edema Neuro: COMMON NORMALS: patient oriented x3 SENSORIUM/ORIENTATION: Yes alert MENINGEAL SIGNS: Yes no meningeal signs Skin: COMMON NORMALS: no rashes or lesions noted, no wounds, turgor normal, no jaundice, no petechiae and no mottling GENERAL SKIN EXAM: no rashes or lesions noted and turgor normal Course Reevaluation(s): Reevaluation #1: Discussed her labs and imaging findings with her. Nothing acute. No signs of a kidney stone. Will discharge her home. Pain is better but not completely resolved. She voiced understanding and all questions answered. Time: 18:25 Vital Signs: Vital signs: Vital Signs Temperature 97.4 F L 02/24/20 15:18 Pulse Rate 61 02/24/20 17:32 Respiratory Rate 18 02/24/20 17:32 Blood Pressure 224/104 02/24/20 17:32 Pulse Oximetry 96 02/24/20 17:32 MDM - General Adult MDM Narrative: Medical decision making narrative: Patient with right flank pain that she was concerned was a kidney stone. Evaluation in the emergency department was negative for kidney stone or other acute findings. Pain improved with intravenous analgesics. She is discharged home with no new orders. Medical Records: Attestation: I reviewed the patient's medical records. Lab Data: Attestation: I reviewed the patient's lab results. Labs: Lab Results 02/24/20 02/24/20 02/24/20 Range/Units 15:37 15:43 15:43 WBC 7.4 (4.0-10.0) 10^3/ uL RBC 4.96 (4.1-5.3) 10^6/u L Hgb 15.2 (11.5-15.3) g/dL Hct 47.6 H (37.0-47.0) % MCV 96.0 (81-99) fL MCH 30.6 (28.0-34.0) pg MCHC 31.9 (30.0-36.0) g/dL RDW 13.6 (12.1-15.1) % Plt Count 417 H (130-400) 10^3/c mm MPV 8.6 (7.4-10.4) fL Neut % (Auto) 80.3 % Lymph % (Auto) 13.3 % Fulton % (Auto) 4.4 % Eos % (Auto) 0.9 % Baso % (Auto) 0.4 % Neut # (Auto) 5.95 (1.8-7.7) 10^3/u L Lymph # (Auto) 1.0 (0.8-4.8) 10^3/u L Fulton # (Auto) 0.3 (0.2-0.9) 10^3/u L Eos # (Auto) 0.1 (0.0-0.8) 10^3/u L Baso # (Auto) 0.0 (0.0-0.1) 10^3/u L Nucleated RBC % (a uto) 0 % Nucleated RBCs # 0.0 /100WBC Sodium 140 (136-145) mmol/L Potassium 3.9 (3.5-5.1) mmol/L Chloride 106 (98-107) mmol/L Carbon Dioxide 23 (22-29) mmol/L Anion Gap 14.9 (5-19) BUN 12 (8-23) mg/dL Creatinine 0.7 (0.5-0.9) mg/dL GFR Calculation Not Reportable Glucose 101 (65-115) mg/dL Calculated Osmolal ity 290 (285-295) mOsm/k g Calcium 9.6 (8.5-10.5) mg/dL Lipase 21 (13-60) U/L Urine Color Yellow (Yellow) Urine Appearance Clear (CLEAR) Urine pH 5 (5-7) Ur Specific Gravit y 1.015 (1.005-1.030) Urine Protein Neg (Negative) Urine Glucose (UA) Norm (Normal) Urine Ketones 1+ H (Negative) Urine Blood Neg (Negative) Urine Nitrate Negative (Negative) Urine Bilirubin Neg (Negative) Urine Urobilinogen 1 H (Negative) mg/dL Ur Leukocyte Carol Ann ase Negative (Negative) Imaging Data^: CT Abd/Pel: Attestation: I personally reviewed and interpreted this imaging study as follows: Radiologist's impression: [place] [address] CT Scan Report Signed Patient: Eris Rodas #: [id number] : 9Acc#:[id number] Age/Sex: 69 / FADM Date: 02/24/20 Loc: ERRoom/Bed: Attending Dr: Ordering Provider/Ordering MD: Jerson Carlos MD, [facility] [place] Date of Service: 02/24/20 Procedure(s): CT kidney stone [id number] Accession Number(s): [id number] Report Number: [id number] PROCEDURE INFORMATION: Exam: CT Abdomen And Pelvis Without Contrast Exam date and time: 02/24/2020 3:49 PM Age: 69 years old Clinical indication: Abdominal pain; Right; Prior surgery; Surgery date: 6+ months; Surgery type: Gb; Patient HX: HX of stones C/O R flank pain x 4 days; Additional info: Right flank pain, history of kidney stones. TECHNIQUE: Imaging protocol: Computed tomography of the abdomen and pelvis without contrast. Radiation optimization: All CT scans at this facility use at least one of these dose optimization techniques: automated exposure control; mA and/or kV adjustment per patient size (includes targeted exams where dose is matched to clinical indication); or iterative reconstruction. COMPARISON: CT abdomen pelvis w con* [id number] 12/31/2019 8:14 PM RADIATION DOSE METRICS: Total DLP (mGy-cm): 1787.85 FINDINGS: Liver: There is a 1.4 cm left liver cyst as well as a 3.9 cm liver cyst. Gallbladder and bile ducts: There has been a cholecystectomy. Pancreas: Normal. No ductal dilation. Spleen: Normal. No splenomegaly. Adrenals: Normal. No mass. Kidneys and ureters: There are left renal calcifications. There are bilateral renal vascular calcifications. No hydronephrosis. Stomach and bowel: Colonic diverticula are present although there are no CT findings to suggest diverticulitis. No bowel obstruction or wall thickening. Appendix: The appendix is visualized and appears normal. Intraperitoneal space: Unremarkable. No free air. No significant fluid collection. Vasculature: Unremarkable. No abdominal aortic aneurysm. Lymph nodes: Unremarkable. No enlarged lymph nodes. Urinary bladder: Unremarkable as visualized. Reproductive: Unremarkable as visualized. Bones/joints: Unremarkable. No acute fracture. Soft tissues: Unremarkable. CT/CT kidney stone [id number] IMPRESSION: There are no acute concerning abnormalities. Radiation Dose CTDIVOL = (mGy): DLP = 1787.85 (mGy-cm) Dictated By:Sonia Meier MD Signed By:Sonia Meierigned Date/Time:02/24/201652 DD/ 50 Discharge Plan Discharge Patient Disposition: Home Clinical Impression: Acute right flank pain Condition: Stable Prescriptions: Continued cetirizine [Zyrtec] 10 mg Tablet 10 mg PO DAILY RF: 0 tizanidine 4 mg tablet 4 mg PO TID PRN (Reason: Muscle Pain) RF: 0 simvastatin 10 mg tablet 10 mg PO BEDTIME RF: 0 venlafaxine 150 mg capsule,extended release 24hr 150 mg PO DAILY RF: 0 aspirin [Aspir-81] 81 mg Tablet,Delayed Release (Dr/Ec) 81 mg PO DAILY RF: 0 meclizine 25 mg tablet 25 mg PO TID PRN (Reason: Dizziness) RF: 0 gemfibrozil 600 mg tablet 600 mg PO BID RF: 0 naproxen sodium [Aleve] 220 mg Tablet 220 mg PO PRN PRN (Reason: Pain) RF: 0 ibuprofen 200 mg Tablet 800 mg PO Q6H PRN (Reason: Pain) RF: 0 montelukast 10 mg tablet 10 mg PO DAILY PRN (Reason: Cough) RF: 0 albuterol sulfate [Ventolin HFA] 90 mcg/actuation HFA aerosol inhaler 2 puff INHALATION Q4H PRN (Reason: Shortness Of Breath) RF: 0 lisinopril 40 mg tablet 40 mg PO DAILY RF: 0 diazepam 5 mg tablet 5 mg PO BID PRN (Reason: UNKNOWN) RF: 0 azelastine 0.15 % (205.5 mcg) spray,non-aerosol 2 spray INTRANASAL BID PRN (Reason: Nasal Congestion) RF: 0 Coricidin HBP Cold and Flu See Rx Instructions .ROUTE .COMPLEX RF: 0 dicyclomine 20 mg tablet 20 mg PO QID PRN (Reason: IBS Symptoms) RF: 0 duloxetine 20 mg Capsule,Delayed Release(Dr/Ec) 20 mg PO DAILY RF: 0 Discharge Orders: Discharge Order (Routine); Ordered 02/24/20 Ordered By: Jerson Carlos Referrals: Cornelius Pepper DO [Primary Care Provider] - 1-3 days Discharge Diet: Usual diet Discharge Activity: Increase activity as tolerated Patient Instructions: Abdominal Pain (ED) Activity Restrictions/Additional Instructions: Return for any new or worsening symptoms. Try a heating pad or warm compress to the affected area a few times a day to see if that helps with your pain. Follow-up with your primary care provider within 3 days. Discharge Date/Time: 02/24/20 18:51 Coding Level of Care Code ED Case Consultant for Amyg Fwd Exam Comprehensive
[2020-02-24 15:58] LABS: Basophils % 0.4 %; Eosinophils # 0.1 10^3/uL (0.0-0.8); Eosinophils % 0.9 %; Hematocrit 47.6 % (37.0-47.0); Hemoglobin 15.2 g/dL (11.5-15.3); Lymphocytes % 13.3 %; Mean Corpuscular HGB Conc 31.9 g/dL (30.0-36.0); Mean Corpuscular Hemoglobin 30.6 pg (28.0-34.0); Mean Platelet Volume 8.6 fL (7.4-10.4); Monocytes # 0.3 10^3/uL (0.2-0.9); Monocytes % 4.4 %; Neutrophils # 5.95 10^3/uL (1.8-7.7); Neutrophils % 80.3 %; Nucleated Red Blood Cells % 0 %; Platelet Count 417 10^3/cmm (130-400); Red Blood Count 4.96 10^6/uL (4.1-5.3); Red Cell Distribution Width 13.6 % (12.1-15.1); White Blood Count 7.4 10^3/uL (4.0-10.0)
[2020-02-24 16:15] LABS: Add Urine Microscopic? NO
[2020-02-24 16:22] LABS: Anion Gap 14.9 (5-19); Blood Urea Nitrogen 12 mg/dL (8-23); Calcium 9.6 mg/dL (8.5-10.5); Carbon Dioxide 23 mmol/L (22-29); Chloride 106 mmol/L (98-107); Glucose 101 mg/dL (65-115); Lipase 21 U/L (13-60); Osmolality Calculated 290 mOsm/kg (285-295); Potassium 3.9 mmol/L (3.5-5.1); Sodium 140 mmol/L (136-145)
[2020-02-24 16:23] VITALS: RESP 18
[2020-02-24 16:26] LABS: Bilirubin Urine Neg (Negative); Blood Urine Neg (Negative); Glucose Urine UA Norm (Normal); Ketones Urine 1+ (Negative); Leukocyte Esterase Urine Negative (Negative); Nitrate Urine Negative (Negative); Protein Urine Neg (Negative); Specific Gravity, Urine 1.015 (1.005-1.030); Urine Appearance Clear (CLEAR); Urine Color Yellow (Yellow); Urobilinogen Urine 1 mg/dL (Negative); pH Urine 5 (5-7)
[2020-02-24 16:30] VITALS: BP 153/86; PULSE 88; RESP 18; O2SAT 94
[2020-02-24 16:36] VITALS: RESP 18
[2020-02-24] MEDS: ketorolac 30 mg/mL INJ IVP (16:49)
[2020-02-24] MEDS: ondansetron 2 mg/ML SDV 2 mL 4 MG IVP (16:49)
[2020-02-24 17:32] VITALS: BP 224/104; PULSE 61; RESP 18; O2SAT 96
[2020-02-24] MEDS: metoclopramide 5 mg/mL SDV 2 mL 10 MG IVP (17:32)
[2020-02-24] MEDS: morphine 4 mg/mL SDV 1 mL IVP (17:33)
--- NOTE | 2020-02-24 18:30 | PC.NURSE ---
informed dr. castillo of bp of 224/104 vo to continue with dc.
== END 2020-02-24 18:51 | disposition home or self-care (01) ==
PROVIDERS: Family Medicine; Emergency Provider Family Medicine; PCP Internal Medicine
DX: R10.9 Unspecified abdominal pain (principal); Z79.82 Long term (current) use of aspirin; E78.5 Hyperlipidemia, unspecified; F17.210 Nicotine dependence, cigarettes, uncomplicated
CPT/HCPCS: 12345; 36415; 74176; 80048; 81003; 83690; 85025; 96374; 96375; 99283; J1885; J2270; J2405; J2765

== ENCOUNTER 2020-02-27 11:57 | Emergency (ER) | payer MEDICARE, MEDICAID, SELFPAY ==
[2020-02-27 12:09] VITALS: BP 111/91; PULSE 69; RESP 18; TEMP 36.6; O2SAT 96; BMI 32.9
--- NOTE | 2020-02-27 12:18 | XRR_ITS ---
PROCEDURE INFORMATION: Exam: XR Right Hip with Pelvis when Performed Exam date and time: 02/27/2020 12:45 PM Age: 69 years old Clinical indication: Pain and injury or trauma; Fall; Blunt trauma (contusions or hematomas); Left; Hip pain; Right hip; Injury date: 02/25/20; Additional info: Fall/pain TECHNIQUE: Imaging protocol: XR Right hip with pelvis when performed. Views: 1 view. COMPARISON: CT kidney stone [id number] 02/24/2020 4:08 PM FINDINGS: Bones/joints: Unremarkable. No acute fracture. Soft tissues: Unremarkable. XR/XR hip RT 2-3V wo/w pel* [id number] IMPRESSION: No acute findings.
--- NOTE | 2020-02-27 12:21 | ED_ITS ---
HPI - Extremity Problem General: Chief complaint: Extremity Injury, Lower Stated complaint: HIP PAIN Time Seen by Provider: 02/27/20 11:58 Source: patient Mode of arrival: EMS Limitations: no limitations History of Present Illness: HPI Narrative: Patient is a 69-year-old female who presents to ED today with a complaint of right hip pain. Patient was seen at our facility 2 days ago for similar symptoms but documentation at that time said her symptoms were more related to flank pain this she was worked up for possible nephrolithiasis/ureterolithiasis. Her work-up at that visit was negative. Patient had initially told triage nurses she has not had any injury or trauma however does tell me a few days ago she fell onto her right hip and knee. She has been ambulatory since the fall but reports excruciating pain. She has not noticed any redness or warmth to the joint. She does not complain of knee pain. She is not having any urinary symptoms. MD Complaint: joint pain (R hip) Onset (ago): day(s) Pain Consistency: constant Location: right and lower extremity Radiation: none Relieving factors: immobilization Exacerbating factors: range of motion, weight bearing, walking and palpation Associated symptoms: Reports no associated symptoms; Deny chest pain or fever(s) Review of Systems Const: Denies: fever(s), chills, body aches, fatigue or malaise Card: Denies: chest pain Resp: Denies: dyspnea GI: Denies: abdominal pain, nausea or vomiting : Denies: flank pain, difficulty voiding, dysuria, urinary frequency, urinary urgency, urinary hesitancy or pelvic pain Musc: Reports: joint pain (R hip); Denies: neck pain, back pain, extremity pain, extremity swelling or joint swelling Neuro: Denies: headache(s), numbness in extremities, weakness in extremities or sensory changes PFS ED PFSH: Medical History (Updated 02/27/20 @ 13:04 by MAKAYLA Littlejohn) Anxiety Depression Hyperlipidemia Panic attacks Surgical History History of facial surgery S/P cholecystectomy Social History Smoking and tobacco status: heavy tobacco smoker Alcohol intake: never Physical Exam Const: COMMON NORMALS: patient oriented x3, no limitations and alert GEN ERAL APPEARANCE: cooperative and in distress (in pain) NUTRITIONAL APPEARANCE: obese morbidly obese HENMT: COMMON NORMALS: normocephalic and atraumatic HEAD & SCALP: normocephalic and atraumatic GI: COMMON NORMALS: Normal to inspection, nondistended, normoactive bowel sounds present, Soft to palpation, non-tender, No hepatosplenomegaly present and no masses PALPATION: Yes Soft to palpation and Yes No hepatosplenomegaly present : COMMON NORMALS: Yes no CVA tenderness BLADDER/KIDNEY EXAM: Yes no CVA tenderness Back/Pelvis: COMMON NORMALS: no CVA tenderness, thoracic and lumbar spine normal to inspection, no thoracic nor lumbar tenderness and thoraco-lumbar ROM normal Extremity: GENERAL: Yes normal exam except as noted RIGHT LOWER EXTREMITY: Yes hip joint (TTP R anterior superior portion of pelvis ) Neuro: COMMON NORMALS: patient oriented x3, moves all extremities, no focal motor deficits and no sensory deficits noted SENSORIUM/ORIENTATION: Yes alert GAIT: Yes Unable to assess gait Skin: COMMON NORMALS: no rashes or lesions noted GENERAL SKIN EXAM: no rashes or lesions noted Course Vital Signs: Vital signs: Vital Signs Temperature 97.8 F 02/27/20 12:09 Pulse Rate 69 02/27/20 12:09 Respiratory Rate 18 02/27/20 12:27 Blood Pressure 111/91 02/27/20 12:09 Pulse Oximetry 96 02/27/20 12:09 MDM - Extremity (Nontraumatic) MDM Narrative: Medical decision making narrative: Reviewed CT scan and blood work results from last visit. I don't see a need to repeat these today as pts history is more consistent with R hip pain. XRs negative. She is feeling better after IM meds here. Will treat pain and will have her follow up with her primary care provider if pain does not improve over the next few days. Imaging Data^: XR R hip/pelvis: Radiologist's impression: [address] [place] [address] XRay Report Signed Patient: Sindhu Rodas Unit #: [id number] : 1950 Age/Sex: 69 / F ADM Date: 02/27/20 Loc: ER Room/Bed: Attending Dr: Ordering Provider/Ordering MD: Nika Busby Date of Service: 02/27/20 Procedure(s): XR hip RT 2-3V wo/w pel* [id number] Accession Number(s): [id number] Report Number: [id number] PROCEDURE INFORMATION: Exam: XR Right Hip with Pelvis when Performed Exam date and time: 02/27/2020 12:45 PM Age: 69 years old Clinical indication: Pain and injury or trauma; Fall; Blunt trauma (contusions or hematomas); Left; Hip pain; Right hip; Injury date: 02/25/20; Additional info: Fall/pain TECHNIQUE: Imaging protocol: XR Right hip with pelvis when performed. Views: 1 view. COMPARISON: CT kidney stone [id number] 02/24/2020 4:08 PM FINDINGS: Bones/joints: Unremarkable. No acute fracture. Soft tissues: Unremarkable. XR/XR hip RT 2-3V wo/w pel* [id number] IMPRESSION: No acute findings. Dictated By: Filemon Saucedo Signed By: Filemon Saucedo Signed Date/Time: 02/27/20 1359 DD/ 1358 Discharge Plan Discharge Patient Disposition: Home Clinical Impression: Acute pain of right hip Condition: Stable Prescriptions: New prednisone 10 mg tablet 60 mg PO DAILY 5 Days Qty: 30 RF: 0 hydrocodone-acetaminophen 5-325 mg tablet 1 tab PO Q6H PRN (Reason: pain) Qty: 14 RF: 0 No Action cetirizine [Zyrtec] 10 mg Tablet 10 mg PO DAILY RF: 0 tizanidine 4 mg tablet 4 mg PO TID PRN (Reason: Muscle Pain) RF: 0 simvastatin 10 mg tablet 10 mg PO BEDTIME RF: 0 venlafaxine 150 mg capsule,extended release 24hr 150 mg PO DAILY RF: 0 aspirin [Aspir-81] 81 mg Tablet,Delayed Release (Dr/Ec) 81 mg PO DAILY RF: 0 meclizine 25 mg tablet 25 mg PO TID PRN (Reason: Dizziness) RF: 0 gemfibrozil 600 mg tablet 600 mg PO BID RF: 0 naproxen sodium [Aleve] 220 mg Tablet 220 mg PO PRN PRN (Reason: Pain) RF: 0 ibuprofen 200 mg Tablet 800 mg PO Q6H PRN (Reason: Pain) RF: 0 montelukast 10 mg tablet 10 mg PO DAILY PRN (Reason: Cough) RF: 0 albuterol sulfate [Ventolin HFA] 90 mcg/actuation HFA aerosol inhaler 2 puff INHALATION Q4H PRN (Reason: Shortness Of Breath) RF: 0 lisinopril 40 mg tablet 40 mg PO DAILY RF: 0 diazepam 5 mg tablet 5 mg PO BID PRN (Reason: UNKNOWN) RF: 0 azelastine 0.15 % (205.5 mcg) spray,non-aerosol 2 spray INTRANASAL BID PRN (Reason: Nasal Congestion) RF: 0 Coricidin HBP Cold and Flu See Rx Instructions .ROUTE .COMPLEX RF: 0 dicyclomine 20 mg tablet 20 mg PO QID PRN (Reason: IBS Symptoms) RF: 0 duloxetine 20 mg Capsule,Delayed Release(Dr/Ec) 20 mg PO DAILY RF: 0 Discharge Orders: Discharge Order (Routine); Ordered 02/27/20 Ordered By: Nika Busby Referrals: Cornelius Pepper DO [Primary Care Provider] - Activity Restrictions/Additional Instructions: As discussed please follow-up with Dr. Pepper in 3 to 5 days for re-evaluation. Discharge Date/Time: 02/27/20 13:37 Coding Level of Care Code ED Facility Manager Histology for Chg Fwd Exam Comprehensive
[2020-02-27 12:27] VITALS: RESP 18
[2020-02-27] MEDS: ketorolac 60 mg/2 mL INJ IM (12:27)
[2020-02-27] MEDS: morphine 4 mg/mL SDV 1 mL IM (12:27)
--- NOTE | 2020-02-27 12:29 | PC.NURSE ---
IV insertion charted on wrong patient. Unable to delete insertion. No IV started on this patient by this nurse at this time.
== END 2020-02-27 13:37 | disposition home or self-care (01) ==
PROVIDERS: Emergency Provider Physician Assistant; PCP Internal Medicine
DX: M25.551 Pain in right hip (principal); Z79.82 Long term (current) use of aspirin; E78.5 Hyperlipidemia, unspecified; F17.210 Nicotine dependence, cigarettes, uncomplicated
CPT/HCPCS: 12345; 73502; 96372; 99282; 99283; J1885; J2270

== ENCOUNTER 2021-04-18 16:25 | Emergency (ER) | payer MEDICARE, MEDICAID, SELFPAY ==
[2021-04-18 16:31] VITALS: BP 168/82; PULSE 81; RESP 20; TEMP 36.1; O2SAT 96; BMI 32.9
--- NOTE | 2021-04-18 16:37 | W.ED.EXTPRO ---
Documented by User: Zach Vasquez MD 04/23/21 23:25 HPI - Extremity Problem General: Chief complaint: Anxiety Stated complaint: Open wound on side,pt states poss Sepsis Time Seen by Provider: 04/18/21 16:37 History of Present Illness: HPI Narrative: Ms. Evans is a 70-year-old lady with history of hypertension, hyperlipidemia, anxiety, CVA who presents emerged department due to concern over infection. She reports a longstanding history of episodes of confusion that date back to her stroke. Additionally she has anxiety and what she describes as panic attacks. She has been seen recently at [facility] for some sort and on painful mass on her left groin right at the inguinal fold which was lanced and packed. She plans to follow-up tomorrow. She is unsure if she is just anxious or started feeling worse. She states that time she has nausea but takes Zofran so she is not vomiting. Additionally she had 2 episodes of loose stools. These symptoms predate the incision and drainage. Overall the course of symptoms varies. Intensity today is moderate. She cannot think of any other specific exacerbating or alleviating factors. Review of Systems General: Reports: 10 or more systems reviewed and unremarkable except in HPI and below PFSH ED PFSH: Medical History (Updated 04/18/21 @ 18:53 by Annalisa Cruz MD) Anxiety Depression Hyperlipidemia Panic attacks Surgical History History of facial surgery S/P cholecystectomy Social History Smoking and tobacco status: heavy tobacco smoker Alcohol intake: never Physical Exam Narrative: EXAM NARRATIVE: GENERAL/CONSTITUTIONAL - well-appearing. No acute distress. Eyes - PERRL, no conjunctival injection ENMT - Atraumatic external nose and ears. Moist mucous membranes NECK - supple. trachea midline CARDIOVASCULAR - regular rate and rhythm. Peripheral pulses 2+ and equal RESPIRATORY -clear to auscultation bilaterally. No retractions or accessory muscle use. ABDOMEN/GI - Nontender/Nondistended. No tenderness to percussion or evidence of peritonitis MSK - Extremities without obvious deformity or tenderness to palpation SKIN - Warm, Dry. Minimal induration and erythema which is reportedly improved in the left groin, packing and dressing appears in place and without significant drainage or purulence. Overall appears and is reported to be improving NEURO - alert and appropriately oriented. Moves all extremities equally. PSYCH -anxious Course ED course: - Patient was seen and evaluated by me at bedside - Patient placed on cardiac monitors, IV access obtained - Initial evaluation notable for no acute distress, nontoxic. Patient is afebrile. Anxious. -Patient care handed off to overnight ED physician Dr. Cruz pending completion of laboratory studies and imaging read. Vital Signs: Vital signs: Vital Signs Temperature 97.0 F L 04/18/21 16:31 Pulse Rate 84 04/18/21 19:06 Respiratory Rate 18 04/18/21 19:06 Blood Pressure 164/98 04/18/21 19:06 Pulse Oximetry 98 04/18/21 19:06 MDM - Extremity (Nontraumatic) Medical Records: Attestation: I reviewed the patient's medical records. Lab Data: Attestation: I reviewed the patient's lab results. Labs: Lab Results 04/18/21 04/18/21 04/18/21 17:18 17:18 17:18 WBC 6.7 10^3/uL 10^3/ uL (4.0-10.0) RBC 4.70 10^6/uL 10^6 /uL (4.1-5.3) Hgb 14.3 g/dL g/dL (11.5-15.3) Hct 42.9 % % (37.0-47.0) MCV 91.3 fl fl (81-99) MCH 30.4 pg pg (28.0-34.0) MCHC 33.3 g/dL g/dL (30.0-36.0) RDW 13.2 % % (12.1-15.1) Plt Count 355 10^3/cmm 10^3 /cmm (130-400) MPV 8.5 fL fL (7.4-10.4) Neut % (Auto) 62.6 % % Lymph % (Auto) 24.0 % % [place] % (Auto) 6.5 % % Eos % (Auto) 5.6 % % Baso % (Auto) 1.2 % % Neut # (Auto) 4.21 10^3/uL 10^3 /uL (1.8-7.7) Lymph # (Auto) 1.6 10^3/uL 10^3/ uL (0.8-4.8) [place] # (Auto) 0.4 10^3/uL 10^3/ uL (0.2-0.9) Eos # (Auto) 0.4 10^3/uL 10^3/ uL (0.0-0.8) Baso # (Auto) 0.1 10^3/uL 10^3/ uL (0.0-0.1) Nucleated RBC % (a uto) 0 % % Nucleated RBCs # 0.0 /100WBC /100W BC Sodium 141 mmol/L mmol/L (136-145) Potassium 3.4 mmol/L L mmol /L (3.5-5.1) Chloride 106 mmol/L mmol/L (98-107) Carbon Dioxide 19 mmol/L L mmol/ L (22-29) Anion Gap 19.4 H (5-19) BUN 15 mg/dL mg/dL (8-23) Creatinine 0.7 mg/dL mg/dL (0.5-0.9) GFR Calculation Not Reportable Glucose 110 mg/dL mg/dL (65-115) Calculated Osmolal ity 293 mOsm/kg mOsm/ kg (285-295) Lactic Acid 1.2 mmol/L mmol/L (0.5-2.2) Calcium 9.1 mg/dL mg/dL (8.5-10.5) Total Bilirubin 0.3 mg/dL mg/dL (0.15-1.2) AST 12 U/L U/L (0-32) ALT 14 U/L U/L (0-33) Alkaline Phosphata se 89 IU/L IU/L (35-105) Total Protein 6.9 g/dL g/dL (6.6-8.7) Albumin 4.2 g/dL g/dL (3.5-5.2) Globulin 2.7 g/dL g/dL (1.3-4.6) TSH 1.70 uIU/mL uIU/m L (0.27-4.20) Discharge Plan Discharge Patient Disposition: Home Clinical Impression: Anxiety Condition: Stable Prescriptions: No Action cetirizine [Zyrtec] 10 mg Tablet 10 mg PO DAILY RF: 0 tizanidine 4 mg tablet 4 mg PO TID PRN (Reason: Muscle Pain) RF: 0 simvastatin 10 mg tablet 10 mg PO BEDTIME RF: 0 venlafaxine 150 mg capsule,extended release 24hr 150 mg PO DAILY RF: 0 aspirin [Aspir-81] 81 mg Tablet,Delayed Release (Dr/Ec) 81 mg PO DAILY RF: 0 meclizine 25 mg tablet 25 mg PO TID PRN (Reason: Dizziness) RF: 0 gemfibrozil 600 mg tablet 600 mg PO BID RF: 0 naproxen sodium [Aleve] 220 mg Tablet 220 mg PO PRN PRN (Reason: Pain) RF: 0 ibuprofen 200 mg Tablet 800 mg PO Q6H PRN (Reason: Pain) RF: 0 montelukast 10 mg tablet 10 mg PO DAILY PRN (Reason: Cough) RF: 0 albuterol sulfate [Ventolin HFA] 90 mcg/actuation HFA aerosol inhaler 2 puff INHALATION Q4H PRN (Reason: Shortness Of Breath) RF: 0 lisinopril 40 mg tablet 40 mg PO DAILY RF: 0 diazepam 5 mg tablet 5 mg PO BID PRN (Reason: UNKNOWN) RF: 0 azelastine 0.15 % (205.5 mcg) spray,non-aerosol 2 spray INTRANASAL BID PRN (Reason: Nasal Congestion) RF: 0 Coricidin HBP Cold and Flu See Rx Instructions .ROUTE .COMPLEX RF: 0 dicyclomine 20 mg tablet 20 mg PO QID PRN (Reason: IBS Symptoms) RF: 0 duloxetine 20 mg Capsule,Delayed Release(Dr/Ec) 20 mg PO DAILY RF: 0 hydrocodone-acetaminophen 5-325 mg tablet 1 tab PO Q6H PRN (Reason: pain) Qty: 14 RF: 0 Discharge Orders: Discharge ED (Routine); Ordered 04/18/21 Ordered By: Annalisa Cruz Referrals: Cornelius Pepper DO [Primary Care Provider] - Discharge Diet: Advance as tolerated Discharge Activity: Resume usual activity Patient Instructions: Anxiety (ED) Coding Level of Care Code ED Pile Driver Operator for José Gottliebd Documented by User: Annalisa Cruz MD 04/18/21 18:58 HPI - Extremity Problem General: Chief complaint: Anxiety Stated complaint: Open wound on side,pt states poss Sepsis Time Seen by Provider: 04/18/21 16:37 PFSH ED PFSH: Medical History (Updated 04/18/21 @ 18:53 by Annalisa Cruz MD) Anxiety Depression Hyperlipidemia Panic attacks Surgical History History of facial surgery S/P cholecystectomy Social History Smoking and tobacco status: heavy tobacco smoker Alcohol intake: never Course Vital Signs: Vital signs: Vital Signs Temperature 97.0 F L 04/18/21 16:31 Pulse Rate 84 04/18/21 19:06 Respiratory Rate 18 04/18/21 19:06 Blood Pressure 164/98 04/18/21 19:06 Pulse Oximetry 98 04/18/21 19:06 MDM - Extremity (Nontraumatic) MDM Narrative: Medical decision making narrative: Patient presents here with anxiety over multiple complaints she is well-appearing here states she feels much improved blood work and CT are all normal she is requesting discharge I feel she is stable for discharge she is to follow-up with PCP and return if worsening she understands agrees to plan. Lab Data: Labs: Lab Results 04/18/21 04/18/21 04/18/21 17:18 17:18 17:18 WBC 6.7 10^3/uL 10^3/ uL (4.0-10.0) RBC 4.70 10^6/uL 10^6 /uL (4.1-5.3) Hgb 14.3 g/dL g/dL (11.5-15.3) Hct 42.9 % % (37.0-47.0) MCV 91.3 fl fl (81-99) MCH 30.4 pg pg (28.0-34.0) MCHC 33.3 g/dL g/dL (30.0-36.0) RDW 13.2 % % (12.1-15.1) Plt Count 355 10^3/cmm 10^3 /cmm (130-400) MPV 8.5 fL fL (7.4-10.4) Neut % (Auto) 62.6 % % Lymph % (Auto) 24.0 % % [place] % (Auto) 6.5 % % Eos % (Auto) 5.6 % % Baso % (Auto) 1.2 % % Neut # (Auto) 4.21 10^3/uL 10^3 /uL (1.8-7.7) Lymph # (Auto) 1.6 10^3/uL 10^3/ uL (0.8-4.8) [place] # (Auto) 0.4 10^3/uL 10^3/ uL (0.2-0.9) Eos # (Auto) 0.4 10^3/uL 10^3/ uL (0.0-0.8) Baso # (Auto) 0.1 10^3/uL 10^3/ uL (0.0-0.1) Nucleated RBC % (a uto) 0 % % Nucleated RBCs # 0.0 /100WBC /100W BC Sodium 141 mmol/L mmol/L (136-145) Potassium 3.4 mmol/L L mmol /L (3.5-5.1) Chloride 106 mmol/L mmol/L (98-107) Carbon Dioxide 19 mmol/L L mmol/ L (22-29) Anion Gap 19.4 H (5-19) BUN 15 mg/dL mg/dL (8-23) Creatinine 0.7 mg/dL mg/dL (0.5-0.9) GFR Calculation Not Reportable Glucose 110 mg/dL mg/dL (65-115) Calculated Osmolal ity 293 mOsm/kg mOsm/ kg (285-295) Lactic Acid 1.2 mmol/L mmol/L (0.5-2.2) Calcium 9.1 mg/dL mg/dL (8.5-10.5) Total Bilirubin 0.3 mg/dL mg/dL (0.15-1.2) AST 12 U/L U/L (0-32) ALT 14 U/L U/L (0-33) Alkaline Phosphata se 89 IU/L IU/L (35-105) Total Protein 6.9 g/dL g/dL (6.6-8.7) Albumin 4.2 g/dL g/dL (3.5-5.2) Globulin 2.7 g/dL g/dL (1.3-4.6) TSH 1.70 uIU/mL uIU/m L (0.27-4.20) Imaging Data^: CT Head: Radiologist's impression: [address] [place] [address] CT Scan Report Signed Patient: Sindhu Evans Unit #: [id number] : 1950 Age/Sex: 70 / F ADM Date: 04/18/21 Loc: ER Room/Bed: Attending Dr: Ordering Provider/Ordering MD: Zach Vasquez MD Date of Service: 04/18/21 Procedure(s): CT head wo con* [id number] Accession Number(s): [id number] Report Number: [id number] PROCEDURE INFORMATION: Exam: CT Head Without Contrast Exam date and time: 04/18/2021 4:55 PM Age: 70 years old Clinical indication: Altered mental status/memory loss; Confusion or disorientation; Patient HX: Ams/confusion TECHNIQUE: Imaging protocol: Computed tomography of the head without contrast. Radiation optimization: All CT scans at this facility use at least one of these dose optimization techniques: automated exposure control; mA and/or kV adjustment per patient size (includes targeted exams where dose is matched to clinical indication); or iterative reconstruction. COMPARISON: CTA Head/Neck [id number] 03/28/2015 10:16 AM RADIATION DOSE METRICS: Total DLP (mGy-cm): 849.28 FINDINGS: Brain: Left uatsdin lobe chronic infarct, similar to prior exam. Cerebral ventricles: No ventriculomegaly. Paranasal sinuses: Visualized sinuses are unremarkable. No fluid levels. Mastoid air cells: Visualized mastoid air cells are well aerated. Bones/joints: Unremarkable. No acute fracture. Soft tissues: Unremarkable. CT/CT head wo con* [id number] IMPRESSION: 1. Negative for intracranial hemorrhage or mass effect. 2. Left uatsdin lobe chronic infarct, similar to prior exam. Radiation Dose CTDIVOL = (mGy): DLP = 849.28 (mGy-cm) Dictated By: Bryant aNth MD Signed By: Bryant Nath MD Signed Date/Time: 04/18/211842 DD/ 8731 Discharge Plan Discharge Patient Disposition: Home Clinical Impression: Anxiety Condition: Stable Prescriptions: No Action cetirizine [Zyrtec] 10 mg Tablet 10 mg PO DAILY RF: 0 tizanidine 4 mg tablet 4 mg PO TID PRN (Reason: Muscle Pain) RF: 0 simvastatin 10 mg tablet 10 mg PO BEDTIME RF: 0 venlafaxine 150 mg capsule,extended release 24hr 150 mg PO DAILY RF: 0 aspirin [Aspir-81] 81 mg Tablet,Delayed Release (Dr/Ec) 81 mg PO DAILY RF: 0 meclizine 25 mg tablet 25 mg PO TID PRN (Reason: Dizziness) RF: 0 gemfibrozil 600 mg tablet 600 mg PO BID RF: 0 naproxen sodium [Aleve] 220 mg Tablet 220 mg PO PRN PRN (Reason: Pain) RF: 0 ibuprofen 200 mg Tablet 800 mg PO Q6H PRN (Reason: Pain) RF: 0 montelukast 10 mg tablet 10 mg PO DAILY PRN (Reason: Cough) RF: 0 albuterol sulfate [Ventolin HFA] 90 mcg/actuation HFA aerosol inhaler 2 puff INHALATION Q4H PRN (Reason: Shortness Of Breath) RF: 0 lisinopril 40 mg tablet 40 mg PO DAILY RF: 0 diazepam 5 mg tablet 5 mg PO BID PRN (Reason: UNKNOWN) RF: 0 azelastine 0.15 % (205.5 mcg) spray,non-aerosol 2 spray INTRANASAL BID PRN (Reason: Nasal Congestion) RF: 0 Coricidin HBP Cold and Flu See Rx Instructions .ROUTE .COMPLEX RF: 0 dicyclomine 20 mg tablet 20 mg PO QID PRN (Reason: IBS Symptoms) RF: 0 duloxetine 20 mg Capsule,Delayed Release(Dr/Ec) 20 mg PO DAILY RF: 0 hydrocodone-acetaminophen 5-325 mg tablet 1 tab PO Q6H PRN (Reason: pain) Qty: 14 RF: 0 Discharge Orders: Discharge ED (Routine); Ordered 04/18/21 Ordered By: Annalisa Cruz Referrals: Cornelius Pepper, [Primary Care Provider] - Discharge Diet: Advance as tolerated Discharge Activity: Resume usual activity Patient Instructions: Anxiety (ED) Coding Level of Care Code ED Pile Driver Operator for Chg Fwd
--- NOTE | 2021-04-18 16:55 | CTR_ITS ---
PROCEDURE INFORMATION: Exam: CT Head Without Contrast Exam date and time: 04/18/2021 4:55 PM Age: 70 years old Clinical indication: Altered mental status/memory loss; Confusion or disorientation; Patient HX: Ams/confusion TECHNIQUE: Imaging protocol: Computed tomography of the head without contrast. Radiation optimization: All CT scans at this facility use at least one of these dose optimization techniques: automated exposure control; mA and/or kV adjustment per patient size (includes targeted exams where dose is matched to clinical indication); or iterative reconstruction. COMPARISON: CTA Head/Neck [id number] 03/28/2015 10:16 AM RADIATION DOSE METRICS: Total DLP (mGy-cm): 849.28 FINDINGS: Brain: Left alevism lobe chronic infarct, similar to prior exam. Cerebral ventricles: No ventriculomegaly. Paranasal sinuses: Visualized sinuses are unremarkable. No fluid levels. Mastoid air cells: Visualized mastoid air cells are well aerated. Bones/joints: Unremarkable. No acute fracture. Soft tissues: Unremarkable. CT/CT head wo con* [id number] IMPRESSION: 1. Negative for intracranial hemorrhage or mass effect. 2. Left alevism lobe chronic infarct, similar to prior exam. Radiation Dose CTDIVOL = (mGy): DLP = 849.28 (mGy-cm)
[2021-04-18 17:28] LABS: Basophils # 0.1 10^3/uL (0.0-0.1); Basophils % 1.2 %; Eosinophils # 0.4 10^3/uL (0.0-0.8); Eosinophils % 5.6 %; Hematocrit 42.9 % (37.0-47.0); Hemoglobin 14.3 g/dL (11.5-15.3); Lymphocytes # 1.6 10^3/uL (0.8-4.8); Mean Corpuscular HGB Conc 33.3 g/dL (30.0-36.0); Mean Corpuscular Hemoglobin 30.4 pg (28.0-34.0); Mean Corpuscular Volume 91.3 fl (81-99); Mean Platelet Volume 8.5 fL (7.4-10.4); Monocytes # 0.4 10^3/uL (0.2-0.9); Monocytes % 6.5 %; Neutrophils # 4.21 10^3/uL (1.8-7.7); Neutrophils % 62.6 %; Nucleated Red Blood Cells % 0 %; Platelet Count 355 10^3/cmm (130-400); Red Cell Distribution Width 13.2 % (12.1-15.1); White Blood Count 6.7 10^3/uL (4.0-10.0)
[2021-04-18] MEDS: LORazepam 0.5 mg Tablet PO (17:28)
[2021-04-18 17:33] VITALS: BP 163/80; PULSE 94; RESP 18; O2SAT 93
[2021-04-18 17:48] LABS: Lactic Sepsis W/Reflex 1.2 mmol/L (0.5-2.2)
[2021-04-18 18:06] LABS: Alanine Aminotransferase 14 U/L (0-33); Albumin Level 4.2 g/dL (3.5-5.2); Alkaline Phosphatase 89 IU/L (35-105); Anion Gap 19.4 (5-19); Aspartate Amino Transferase 12 U/L (0-32); Blood Urea Nitrogen 15 mg/dL (8-23); Calcium 9.1 mg/dL (8.5-10.5); Carbon Dioxide 19 mmol/L (22-29); Chloride 106 mmol/L (98-107); Globulin 2.7 g/dL (1.3-4.6); Glucose 110 mg/dL (65-115); Osmolality Calculated 293 mOsm/kg (285-295); Potassium 3.4 mmol/L (3.5-5.1); Sodium 141 mmol/L (136-145); Total Bilirubin 0.3 mg/dL (0.15-1.2); Total Protein 6.9 g/dL (6.6-8.7)
[2021-04-18 19:06] VITALS: BP 164/98; PULSE 84; RESP 18; O2SAT 98
== END 2021-04-18 19:14 | disposition home or self-care (01) ==
PROVIDERS: Emergency Medicine; Emergency Provider Emergency Medicine; PCP Internal Medicine
DX: F41.9 Anxiety disorder, unspecified (principal); Z79.82 Long term (current) use of aspirin; E78.5 Hyperlipidemia, unspecified; F17.210 Nicotine dependence, cigarettes, uncomplicated
CPT/HCPCS: 70450; 80053; 83605; 84443; 85025; 99283

== ENCOUNTER → 2021-05-08 08:45 | Outpatient (BNVA) | payer MEDICARE, MEDICAID, SELFPAY | PROVIDERS: PCP Internal Medicine; Visit Provider Surgery | DX: L72.3 Sebaceous cyst (principal) | CPT/HCPCS: 88304 ==

== ENCOUNTER → 2021-06-18 08:13 | Outpatient (BNVA) | payer MEDICARE, MEDICAID, SELFPAY | PROVIDERS: PCP Internal Medicine; Referring Provider Internal Medicine; Visit Provider Specialist | DX: R25.1 Tremor, unspecified (principal); I65.29 Occlusion and stenosis of unspecified carotid artery; Z86.73 Personal history of transient ischemic attack (TIA), and cerebral infarction without residual deficits; F17.210 Nicotine dependence, cigarettes, uncomplicated | CPT/HCPCS: 99204; 99205 ==

== ENCOUNTER 2021-06-18 10:24 | Outpatient (CLI) | payer MEDICARE, MEDICAID, SELFPAY ==
--- NOTE | 2021-06-18 10:15 | USCV_ITS ---
Sindhu Evans Age: 70 Gender: F : 1950 Exam Date: 06/18/2021 10:53 Ordering Phys: Natalie Valdovinos MD Technologist: PAUL Exam Location: [facility] [place] Indication: cerebral infarction Risk Factors: Previous Vascular Surgery: Right Brachial BP: / Left Brachial BP: / Right Left Velocity (cm/s) Spectral Plaque Velocity (cm/s) Spectral Plaque Syst/Diast Broadening Syst/Diast Broadening 81.60/ 5.80 Prox CCA 52.00 / 9.50 54.90/ 4.50 Mid CCA 39.10 / 9.50 395.40/85.70 Distal CCA 170.50/ 22.50 172.60/25.20 Prox ICA 131.60/ 12.20 80.60/ 14.50 Mid ICA 153.00/ 16.80 93.80/ 17.20 Distal ICA 127.00/ 13.80 141.30 ECA 244.20 3.14 ICA/CCA 3.91 Antegrade Vertebral Antegrade 35.05/ 8.25 cm/s 26.80/ 6.80 cm/s Tri Subclavian Tri 137.7 148.0 0 0 FINDINGS Comparison:. 12/28/13. Significant progression of carotid stenosis since the prior exam. Most significant stenosis is at th bifurcations, right greater than left. The ratios do not reflect the exact stenosis. Also elevation of ICA velocities and diastolic velocities. Antegrade vertebral arteries. CONCLUSIONS Right ICA/bulb stenosis 70-99%. Left ICA/bulb stenosis 50-69%. Progression of stenosis at the carotid bulbs and proximal ICA's since the prior exams. Dr. Isi Tamayo DO (Electronically Signed) Final Date: 18 June 2021 13:10 S
== END 2021-06-18 10:25 | disposition home or self-care (01) ==
LOC: RAD 10:32
PROVIDERS: PCP Internal Medicine; Visit Provider Specialist
DX: I63.9 Cerebral infarction, unspecified (principal); I65.23 Occlusion and stenosis of bilateral carotid arteries
CPT/HCPCS: 93880

== ENCOUNTER 2021-09-01 08:57 | Outpatient (CLI) | payer MEDICARE, MEDICAID, SELFPAY ==
--- NOTE | 2021-09-01 09:11 | CT_ITS ---
WS: [id number] CT ANGIOGRAM CEREBRAL AND CAROTID ARTERIES HISTORY: I65.29 - Occlusion and stenosis of unspecified carotid artery. TECHNIQUE: CT angiogram is performed of the carotid and cerebral arteries. During arterial injection imaging is obtained from the skull vertex to the aortic arch in 1.25 mm imaging. Coronal and sagittal reformats are submitted. Additional multi planar reformats of the carotid and cerebral arteries are submitted, MIP imaging also reviewed. NASCET criteria utilized. [facility] CT [facility] at least one of these dose optimization techniques: automated exposure control; mA and/or kV adjust ment per patient size (includes targeted exams where dose is matched to clinical indication); or iter ative reconstruction. CONTRAST: Omnipaque 350; 95 mL IV. DLP: 513.37 mGy.cm COMPARISON: None available. Carotid Angiogram: Right carotid: Common carotid artery: Arises normally from the innominate artery. Mild intimal thickening and scatte red plaque. Internal carotid artery: Heavy calcified plaque and intimal thickening at the origin. Focal high-grad e stenosis estimated at 70% involving the origin of the RIGHT ICA with very slight poststenotic dilat ation. External carotid artery: Patent. Left carotid: Common carotid artery: Scattered plaque and intimal thickening and tortuosity. Internal carotid artery: Calcified plaque and intimal thickening at the bifurcation. High-grade steno sis at the bifurcation of approximately 70%. External carotid artery: Patent. Right vertebral artery: Unremarkable. Left vertebral artery: Unremarkable. Arises normally from the subclavian artery. Subclavian arteries: RIGHT subclavian is intact. Heavy calcified plaque at the origin of the LEFT sub clavian artery from the aorta. Percent stenosis at the origin of the subclavian artery is difficult t o estimate due to the motion artifact from the heart. This stenosis is estimated to be greater than 5 0%. Upper thorax: No mass. Thyroid gland: Limited by breathing motion artifact. Osseous structures: Advanced cervical spondylitic changes. No fracture. CEREBRAL ANGIOGRAM: Intracranial vertebral arteries: Scattered plaque within the vertebral arteries. No high-grade stenos is. Basilar artery: No significant stenosis or occlusion. No aneurysm. Intracranial Internal carotid arteries: Scattered plaque becomes more confluent in the cavernous and supraclinoid carotid arteries. Stenosis greater than 50% on the RIGHT and near 50% on the LEFT throug h the cavernous sections. No aneurysm. Middle cerebral arteries: Normal. Anterior cerebral arteries and ACOM: Hypoplastic RIGHT A1 segment. No aneurysm. Posterior cerebral arteries and PCOM's: Normal. Dural venous sinuses are normally enhancing. Mastoid air cells: Normal. Paranasal sinuses: Normal. Calvarium: Normal. CT/CT angio headneck* [id number]/[id number] IMPRESSION: 1. Bilateral internal cervical carotid artery stenosis near 70%. 2. Additional areas of stenosis in the cavernous carotid arteries and supracli noid greater than 50%. 3. Greater than 50% stenosis origin LEFT subclavian artery from the aorta. Mot ion and breathing artifact obscuring the origin of the LEFT subclavian artery b ut stenosis does appear greater than 50%.
[2021-09-01 10:48] LABS: Blood Urea Nitrogen 13 mg/dL (8-23)
[2021-09-01] MEDS: iohexol 350 mg/mL 100 mL Btl IV (10:51)
== END 2021-09-01 08:58 | disposition home or self-care (01) ==
PROVIDERS: Radiology Neuroradiology; PCP Internal Medicine; Visit Provider Specialist
DX: I65.23 Occlusion and stenosis of bilateral carotid arteries (principal); I70.8 Atherosclerosis of other arteries
CPT/HCPCS: 70496; 70498; 82565; 84520

== ENCOUNTER → 2021-09-21 13:15 | Outpatient (BNVA) | payer MEDICARE, MEDICAID, SELFPAY | PROVIDERS: PCP Internal Medicine; Visit Provider Specialist | DX: I65.29 Occlusion and stenosis of unspecified carotid artery (principal); R25.1 Tremor, unspecified; Z86.73 Personal history of transient ischemic attack (TIA), and cerebral infarction without residual deficits; M25.552 Pain in left hip; F17.210 Nicotine dependence, cigarettes, uncomplicated | CPT/HCPCS: 99214 ==

== ENCOUNTER → 2021-10-01 09:42 | Outpatient (BNVA) | payer MEDICARE, MEDICAID, SELFPAY | PROVIDERS: PCP Internal Medicine; Visit Provider Thoracic Surgery (Cardiothoracic Vascular Surgery) | DX: I65.23 Occlusion and stenosis of bilateral carotid arteries (principal); Z86.73 Personal history of transient ischemic attack (TIA), and cerebral infarction without residual deficits; F17.210 Nicotine dependence, cigarettes, uncomplicated | CPT/HCPCS: 99203 ==

== ENCOUNTER → 2021-10-28 10:03 | Outpatient (BNVA) | payer MEDICARE, MEDICAID, SELFPAY | PROVIDERS: PCP Internal Medicine; Visit Provider Orthopaedic Surgery | DX: M16.12 Unilateral primary osteoarthritis, left hip (principal) | CPT/HCPCS: 99213; 99214 ==

== ENCOUNTER 2021-11-23 16:00 | Inpatient (IN) | payer MEDICARE, MEDICAID, SELFPAY ==
--- NOTE | 2021-11-18 10:03 | ECG_ITS ---
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 Measurements Intervals [place] Rate: 73 P: 14 TX: 114 QRS: 15 QRSD: 100 T: 31 QT: 388 QTc: 429 Interpretive Statements SINUS RHYTHM WITH SHORT TX INTERVAL NONSPECIFIC T-WAVE ABNORMALITY Compared to ECG 12/31/2019 19:38:22 Short TX interval now present T-wave abnormality now present Electronically Signed On 11-18-2021 22:29:46 CDT by Callie Rodriguez M.D. [id number]
[2021-11-18 10:10] VITALS: BMI 31.2
[2021-11-18 10:43] LABS: Basophils # 0.1 10^3/uL (0.0-0.1); Basophils % 0.8 %; Eosinophils # 0.4 10^3/uL (0.0-0.8); Hematocrit 44.8 % (37.0-47.0); Hemoglobin 15.4 g/dL (11.5-15.3); Lymphocytes # 1.7 10^3/uL (0.8-4.8); Lymphocytes % 17.4 %; Mean Corpuscular HGB Conc 34.4 g/dL (30.0-36.0); Mean Corpuscular Hemoglobin 29.2 pg (28.0-34.0); Mean Platelet Volume 8.3 fL (7.4-10.4); Monocytes # 0.5 10^3/uL (0.2-0.9); Neutrophils # 6.89 10^3/uL (1.8-7.7); Neutrophils % 72.4 %; Nucleated Red Blood Cells % 0 %; Platelet Count 346 10^3/cmm (130-400); Red Blood Count 5.27 10^6/uL (4.1-5.3); Red Cell Distribution Width 13.3 % (12.1-15.1); White Blood Count 9.5 10^3/uL (4.0-10.0)
[2021-11-18 11:00] LABS: Anion Gap 14.7 (5-19); Blood Urea Nitrogen 16 mg/dL (8-23); Calcium 9.4 mg/dL (8.5-10.5); Carbon Dioxide 23 mmol/L (22-29); Chloride 103 mmol/L (98-107); Glucose 113 mg/dL (65-115); Osmolality Calculated 286 mOsm/kg (285-295); Potassium 3.7 mmol/L (3.5-5.1); Sodium 137 mmol/L (136-145)
--- NOTE | 2021-11-18 11:37 | ANES.PREANE2 ---
Pre-Anesthetic Assessment Height/Weight: Height 1.63 m Weight 82.554 kg Preop Diagnosis: OsteoarthritisLeft hip Operation Date: 11/23/21 11:55 Proposed Procedures p Left total hip arthroplasty: 07856,M16.12(Left) - Giles Willard MD Familial anesthetic complications: None Was Beta Jhon taken within 24 hours: N/A Was Clonidine taken within 24 hours: N/A Social Alcohol and Tobacco Exam alert, oriented x 3 and regular rate & rhythm b/l wheezing on lung auscultation Airway Submandibular: within normal limits Cervical ROM: within normal limits Mallampati: Class II Comments: Comments: Missing teeth, left upper central and lateral incisors Reports chipped and broken molars Reports recent hx of fragile/easily broken teeth Pulmonary Chronic Obstructive Pulmonary Disease CV/HEM Hypertension and Peripheral Vascular Disease (Cartoid stenosis ) Able to ascend flight of stairs w/o chest pain or SOB None reported Hepatic None reported GI Hx of open cholecystectomy Metabolic None reported Musc/skel Osteoarthritis/DJD DJD Neuropsych Anxiety, Cerebrovascular Accident (Initially had motor/speech deficits now resolved ) and Depression Hx of panic attacks Anesthetic Plan ASA status: 3 Anesthesia: Anesthesia Evaluation, General and Regional (specify below) (spinal) Other: We discussed risk and benefits of general vs spinal anesthesia including DVT risk, infection, paralysis/catastrophic nerve injury, back bruising/pain, PDPH, conversion to general in case of spinal, PONV, sore throat (sometimes severe), corneal abrasion, positioning and peripheral nerve injuries, life threatening allergic reaction, post operative ICU admission requiring prolonged intubation, stroke, heart attack, , post operative delirium and/or post operative cognitive decline, and rare incidences of recall (under general anesthesia). Patient is agreeable to either spinal or general and signed consent for both today. She will consider between now and surgery date what she would prefer. We discussed arterial line and patient agrees to proceed. Plan arterial line for close blood pressure control within 10-20% of patient's pre operative baseline. Per patient she has hx of white coat syndrome. Clinic BP 184/83 on 09/21/2021 and 190/90 on 10/01/2021. Medications/Allergies Home Medications Medication Instructions Recorded Confirmed Last Taken Type Coricidin HBP Cold and Flu See Rx Instructions .ROUTE .COMPLEX 12/31/19 11/18/21 Unknown History aspirin 81 mg tablet,delayed 81 mg PO DAILY 12/31/19 11/18/21 11/10/21 History release (Aspir-) azelastine 205.5 mcg (0.15 %) 2 spray INTRANASAL BID PRN 12/31/19 11/18/21 Unknown History nasal spray diazepam 5 mg tablet 5 mg PO BID PRN 12/31/19 11/18/21 02/23/20 History gemfibrozil 600 mg tablet 600 mg PO BID 12/31/19 11/18/21 02/24/20 History ibuprofen 200 mg tablet 800 mg PO Q6H PRN 12/31/19 11/18/21 Unknown History lisinopril 40 mg tablet 40 mg PO DAILY 12/31/19 11/18/21 02/24/20 History meclizine 25 mg tablet 25 mg PO TID PRN 12/31/19 11/18/21 01/01/20 History naproxen sodium 220 mg tablet 220 mg PO PRN PRN 12/31/19 11/18/21 Unknown History (Aleve) simvastatin 10 mg tablet 10 mg PO BEDTIME 12/31/19 11/18/21 02/23/20 History tizanidine 4 mg tablet 4 mg PO TID PRN 12/31/19 11/18/21 01/01/20 History venlafaxine 150 mg 150 mg PO DAILY 12/31/19 11/18/21 02/24/20 History capsule,extended release 24 hr albuterol sulfate 90 mcg/actuation 2 puff INHALATION Q4-5H PRN 11/18/21 11/18/21 Unknown History aerosol inhaler cetirizine 10 mg capsule (Zyrtec) 10 mg PO DAILY 11/18/21 11/18/21 Unknown History ondansetron HCl 4 mg tablet 4 mg PO Q4-5H PRN 11/18/21 11/18/21 Unknown History Allergies Allergy/AdvReac Type Severity Reaction Status Date / Time codeine Allergy ADR-Vomitin Verified 11/18/21 09:50 g Penicillins Allergy ALGY-Hives Verified 11/18/21 09:50 Sulfa (Sulfonamide Allergy ADR-Vomitin Verified 11/18/21 09:50 Antibiotics) g PFSH Anesthesia Medical History Anxiety Depression Hyperlipidemia Panic attacks Surgical History History of colonoscopy 2018 History of facial surgery S/P cholecystectomy Social History Smoking and tobacco status: current every day smoker cigarettes Packs smoked per day: 1 Years cigarettes smoked: 30 Alcohol intake: never History of recent travel: No Data Anesthesia : 11/18/21 10:32 11/18/21 10:32 Short CBC 11/18/21 Range/Units 10:32 WBC 9.5 (4.0-10.0) 10^3/uL Hgb 15.4 H (11.5-15.3) g/dL Hct 44.8 (37.0-47.0) % MCV 85.0 (81-99) fl Plt Count 346 (130-400) 10^3/cmm Neut % (Auto) 72.4 % Neut # (Auto) 6.89 (1.8-7.7) 10^3/uL BMP 11/18/21 10:32 Sodium 137 Potassium 3.7 Chloride 103 Carbon Dioxide 23 BUN 16 Creatinine 0.8 Glucose 113 Calcium 9.4 Cardiac Studies: No Data to Display
[2021-11-23] VITALS (17 sets, daily range): BP systolic 121–198; BP diastolic 59–146; PULSE 62–125; RESP 5–22; TEMP 36–36.2; O2SAT 91–99; BMI 31.2
[2021-11-23] MEDS: oxyCODONE 20 mg ER (12 HR) Tablet PO (11:03)
[2021-11-23] MEDS: acetaminophen 500 mg Tablet 1000 MG PO (11:04)
[2021-11-23] MEDS: gabapentin 300 mg Capsule PO (11:04)
[2021-11-23] MEDS: sodium chloride 0.9% 1,000 ML 30 ML IV (11:05)
--- NOTE | 2021-11-23 12:40 | PC.NURSE ---
Dr Willard okayed allergy flag with PCN and occupational therapy co director antibiotic Kefzol. Dr also ordered foot pumps for patient.
--- NOTE | 2021-11-23 12:47 | P.HP_ITS ---
Same Day Surgery H&P Indication for Procedure/HPI DATE OF PROCEDURE: November 23, 2021 CHIEF COMPLAINT/INDICATIONFOR SURGICAL PROCEDURE: Osteoarthritis left hip here for left total hip arthroplasty PREOP DIAGNOSIS: OsteoarthritisLeft hip PLANNED PROCEDURE: Operation Date: 11/23/21 11:55 Proposed Procedures p Left total hip arthroplasty: 79128,M16.12(Left) - Giles Willard MD 71-year-old with severe degenerative changes left hip and significant activity limiting pain. She has failed anti-inflammatories. She is here for elective total hip arthroplasty Medications/Allergies* Home Medications Medication Instructions Recorded Confirmed Type Coricidin HBP Cold and Flu See Rx Instructions .ROUTE .COMPLEX 12/31/19 11/23/21 History aspirin 81 mg tablet,delayed 81 mg PO DAILY 12/31/19 11/23/21 History release (Aspir-) azelastine 205.5 mcg (0.15 %) 2 spray INTRANASAL BID PRN 12/31/19 11/23/21 History nasal spray diazepam 5 mg tablet 5 mg PO BID PRN 12/31/19 11/23/21 History ibuprofen 200 mg tablet 800 mg PO Q6H PRN 12/31/19 11/23/21 History lisinopril 40 mg tablet 40 mg PO DAILY 12/31/19 11/23/21 History meclizine 25 mg tablet 25 mg PO TID PRN 12/31/19 11/23/21 History naproxen sodium 220 mg tablet 220 mg PO PRN PRN 12/31/19 11/23/21 History (Aleve) simvastatin 10 mg tablet 10 mg PO BEDTIME 12/31/19 11/23/21 History tizanidine 4 mg tablet 4 mg PO TID PRN 12/31/19 11/23/21 History venlafaxine 150 mg 150 mg PO DAILY 12/31/19 11/23/21 History capsule,extended release 24 hr albuterol sulfate 90 mcg/actuation 2 puff INHALATION Q4-5H PRN 11/18/21 11/23/21 History aerosol inhaler cetirizine 10 mg capsule (Zyrtec) 10 mg PO DAILY 11/18/21 11/23/21 History ondansetron HCl 4 mg tablet 4 mg PO Q4-5H PRN 11/18/21 11/23/21 History Allergies/Adverse Reactions Allergy/AdvReac Type Severity Reaction Status Date / Time codeine Allergy ADR-Vomitin Verified 11/23/21 10:57 g Penicillins Allergy ALGY-Hives Verified 11/23/21 10:57 Sulfa (Sulfonamide Allergy ADR-Vomitin Verified 11/23/21 10:57 Antibiotics) g Current Medications: Generic Name Dose Route Start Last Admin Trade Name Freq PRN Reason Stop Dose Admin Sodium Chloride 1,000 mls @ 30 mls/hr 11/23/21 10:45 11/23/21 11:05 Sodium Chloride 0.9% IV 11/24/21 10:44 30 mls/hr .Q24H JAYLA Administration Pertinent History/Comorbid Conditions* Medical History (Updated 10/28/21 @ 10:51 by Giles Willard MD) Anxiety Depression Hyperlipidemia Panic attacks Surgical History (Updated 06/18/21 @ 19:12 by Natalie Valdovinos MD) History of colonoscopy 2017 History of facial surgery S/P cholecystectomy Social History Smoking and tobacco status: current every day smoker cigarettes Packs smoked per day: 1 Years cigarettes smoked: 30 Alcohol intake: never History of recent travel: No Pertinent Exam Findings alert, oriented x 3, clear to auscultation bilaterally, regular rate & rhythm and operative site marked Recommendations Surgery/Procedure today Coding Level of Care Code Acute Faculty Support Coordinator for José Padgett
--- NOTE | 2021-11-23 13:01 | P.ANESUD_ITS ---
Pre-Anesthetic Update Pre-Anesthetic Assessment: Date of Surgery/Procedure: 11/23/21 Preop Molly gnosis: OsteoarthritisLeft hip Proposed Procedure: Operation Date: 11/23/21 11:55 Proposed Procedures p Left total hip arthroplasty: 50558,M16.12(Left) - Giles Willard MD Last Intake: Intake Last Liquid Date 11/22/21 Last Liquid Time 16:00 Last Solid Date 11/22/21 Last Solid Time 16:00 Vitals: Temperature 96.8 F L 11/23/21 11:13 Pulse Rate 67 11/23/21 11:13 Respiratory Rate 20 H 11/23/21 11:13 Blood Pressure 170/146 11/23/21 11:13 Blood Pressure Joanna n 154 11/23/21 11:13 Pulse Oximetry 96 11/23/21 11:13 Oxygen Delivery Me thod 11/23/21 11:13 Other Pertinent Information: Other Pertinent Information: discussed anesthetic options patient wishes for a SAB. Risk and benefits reviewed including risk of stroke given carotid artery stenosis, artline discussed and patient wishes to proceed. expiratory wheezes noted Duoneb ordered. Cardiac Studies: No Data to Display
[2021-11-23] MEDS: ipratropium-albuterol 3 mL Neb INHALATION (13:19)
[2021-11-23] MEDS: sodium chloride 0.9% 100 mL Bag XX (14:24)
[2021-11-23] MEDS: tranexamic acid 1,000 mg/10mL SDV 1000 MG IRRIGATION (14:25)
[2021-11-23] MEDS: tobramycin 40 mg/mL SDV 2mL 160 MG XX (14:25)
--- NOTE | 2021-11-23 15:34 | XR_ITS ---
WS: [id number] XR hip LT 1V wo/w pel [id number] REASON FOR EXAM: Left total hip FINDINGS: Total left hip arthroplasty. Prosthetic components are in proper position and alignment. No bony abnormality. XR/XR hip LT 1V wo/w pel [id number] IMPRESSION: Total left hip arthroplasty without abnormality.
--- NOTE | 2021-11-23 15:34 | PM.OP ---
Operative Report Date of procedure: November 23, 2021 Pre-op diagnosis: Preop Diagnosis OsteoarthritisLeft hip Post-op diagnosis: same Post-op diagnosis: Same Procedure done: Left total hip arthroplasty Implants: 1) Sergio 52 mm Trident 2 solid back acetabular shell 2) Size 3 Sergio 127 degree neck angle Accolade 2 stem 3} 28mm standard ceramic femoral head 4} MDM metal liner Pathology: none sent Surgeon: Giles Willard Estimated blood loss (mL): 600 Findings: Patient had eburnated bone over her femoral head and acetabulum with no significant bone loss. Condition: stable Disposition: PACU Procedure: The patient was taken to the operating room and anesthesia provided by the anesthesia service. The patient was placed in the lateral position on a pegboard. A timeout was performed. The patient was draped in the usual fashion. A 15 cm long incision was made beginning just proximal to the greater trochanter and extending posteriorly to a point just distal to the trochanter on the posterior border of the trochanter. Dissection was carried down with electrocautery through the subcutaneous fat to the fascia sherie which was divided proximally and distally with curved scissors. The anterior two thirds of the gluteus medius and minimus were elevated off the hip with electrocautery. The capsule was divided in a H-like fashion. The hip was dislocated and a neck cut made just above the level of the lesser trochanter. Exposure of the acetabulum was facilitated with the acetabular retractors. Remnants of labrum and peripheral osteophytes were removed with electrocautery and a rongeur. A reamer 2 mm under the size the femoral head was utilized to ream medially to the base of the palm and are. Reaming was then increased in 1 mm intervals until a healthy rim a trabecular bone was encountered. The rim was touched with the reamer the size of the final acetabular shell to be placed. A final Trident 2 acetabular cup of the same size as the final reaming was press-fit into place. The ADM liner was secured. Attention was then focused on the femur. The canal was localized with a canal finder. Broaching was then accomplished until a stable broach size was obtained. A trial reduction with the head and neck provided excellent stability. The wound was irrigated with saline and antibiotic solution. The final Sergio Accolade II stem was press-fit into place. The femoral head was placed and the hip was reduced. The hip was brought through range of motion and found to be free of impingement and stable. The anterior capsule was reapproximated with 1 Ethibond. The gluteus medius and minimus were repaired through bone with 5 Ethibond and reinforced with 1 Ethibond. The fascial sherie was closed with a running 0 Stratafix suture. Deep pelvic tissues were closed with 2-0 Stratafix and the skin with a running 4-0 l Stratafix. The skin was covered with a Prineo dressing and op site dressings.
--- NOTE | 2021-11-23 16:07 | ANE.PACU2 ---
Inpatient post-anesthesia follow up: Airway intact: Yes Vital signs: Temperature 96.8 F Pulse Rate 67 Respiratory Rate 20 Blood Pressure 170/146 Pulse Oximetry 96 Oxygen Delivery Me thod Room Air Oxygen Flow Rate Fraction of Inspir ed Oxygen Hydration adequate: Yes Nausea and vomiting: No Pain level: 3 Mental status: Baseline (sleeping) Additional Comments: Brought to ICU for close monitoring of perioperative HTN
[2021-11-23] MEDS: sodium chloride 0.9% 1,000 ML 100 ML IV (17:31)
--- NOTE | 2021-11-23 17:52 | PM.CONSULT ---
Providers/Reason For Consult Consulting Physician/Specialty*: Dr. Rico MD/internal medicine Reason for Consult*: High blood pressure Requesting Physician: Dr. Evans Attending Physician: Giles Willard MD Primary Care Provider: Cornelius Pepper DO History of Present Illness History of Present Illness Sindhu Evans is a 71 year old female with past medical history of carotid artery stenosis, bilateral near 70% ICA stenosis noted on CTA head and neck on September 01, anxiety, depression, hyperlipidemia who was admitted to the hospital under orthopedic service today for left total hip arthroplasty. Patient had an estimated blood loss of around 600 cc as per operative note. During OR she was found to have elevated blood pressures on arterial line and cuff pressures. As per the conversation with anesthesiologist in case patient had a cuff pressure of 180 systolic while arterial line pressure was 240 systolic. Hospital service was consulted for high blood pressures. On my examination patient is lying comfortably in bed, drowsy postop complaining of hip pain. Blood pressures on examination had cuff pressures of 127/80 mmHg with arterial blood pressure of 157/60 mmHg. Patient is awake and afoot tells me that she blood checks her blood pressure daily at home and usually blood pressures are less than 160 systolics. She takes medications daily. Review of Systems General: Reports: ROS unobtainable due to mental status Medications/Allergies Home Medications Medication Instructions Recorded Confirmed Last Taken Type Coricidin HBP Cold and Flu See Rx Instructions .ROUTE .COMPLEX 12/31/19 11/23/21 11/22/21 History aspirin 81 mg tablet,delayed 81 mg PO DAILY 12/31/19 11/23/21 11/10/21 History release (Aspir-) azelastine 205.5 mcg (0.15 %) 2 spray INTRANASAL BID PRN 12/31/19 11/23/21 1 Month Ago History nasal spray ~10/23/21 diazepam 5 mg tablet 5 mg PO BID PRN 12/31/19 11/23/21 11/22/21 History ibuprofen 200 mg tablet 800 mg PO Q6H PRN 12/31/19 11/23/21 11/22/21 History lisinopril 40 mg tablet 40 mg PO DAILY 12/31/19 11/23/21 11/22/21 History meclizine 25 mg tablet 25 mg PO TID PRN 12/31/19 11/23/2112/31/20 History naproxen sodium 220 mg tablet 220 mg PO PRN PRN 12/31/19 11/23/21 11/21/21 History (Aleve) simvastatin 10 mg tablet 10 mg PO BEDTIME 12/31/19 11/23/21 11/22/21 History tizanidine 4 mg tablet 4 mg PO TID PRN 12/31/19 11/23/21 11/22/21 History venlafaxine 150 mg 150 mg PO DAILY 12/31/19 11/23/21 11/22/21 History capsule,extended release 24 hr albuterol sulfate 90 mcg/actuation 2 puff INHALATION Q4-5H PRN 11/18/21 11/23/21 11/22/21 History aerosol inhaler cetirizine 10 mg capsule (Zyrtec) 10 mg PO DAILY 11/18/21 11/23/21 11/22/21 History ondansetron HCl 4 mg tablet 4 mg PO Q4-5H PRN 11/18/21 11/23/21 11/22/21 History Allergies Allergy/AdvReac Type Severity Reaction Status Date / Time codeine Allergy ADR-Vomitin Verified 11/23/21 10:57 g Penicillins Allergy ALGY-Hives Verified 11/23/21 10:57 Sulfa (Sulfonamide Allergy ADR-Vomitin Verified 11/23/21 10:57 Antibiotics) g Current Medications Generic Name Dose Route Start Last Admin Trade Name Freq PRN Reason Stop Dose Admin Acetaminophen 1,000 mg 11/23/21 16:41 11/23/21 17:44 Acetaminophen 500 Mg Tablet PO Not Given Q8H JAYLA Celecoxib 200 mg 11/23/21 18:00 11/23/21 17:44 Celecoxib 200 Mg Capsule PO Not Given Q12H JAYLA Gabapentin 300 mg 11/23/21 18:00 11/23/21 17:44 Gabapentin 300 Mg Capsule PO Not Given BID JAYLA Sodium Chloride 1,000 mls @ 100 mls/hr 11/23/21 16:41 11/23/21 17:31 Sodium Chloride 0.9% IV 100 mls/hr .Q10H JAYLA Administration PFSH Acute PFSH: Medical History Anxiety Depression Hyperlipidemia Hypertension Panic attacks Smoker unmotivated to quit Surgical History (Updated 11/23/21 @ 17:57 by Marcos Gómez MD) History of colonoscopy 2018 History of facial surgery S/P cholecystectomy 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 Social History Smoking and tobacco status: current every day smoker cigarettes Packs smoked per day: 1 Years cigarettes smoked: 30 Alcohol intake: never History of recent travel: No Vitals/I&O/Wt Last Vital Signs Temp 97.2 F L 11/23/21 16:03 Pulse 93 11/23/21 17:30 Resp 14 11/23/21 17:30 BP 139/65 11/23/21 17:30 Pulse Ox 92 11/23/21 17:30 11/23/21 11/23/21 11/23/21 06:59 14:59 22:59 Intake Total 1050 / 1050 1025 / 2075 Output Total 1000 / 1000 Balance 1050 / 1050 25 / 1075 Weight last 48 hrs Weight 82.554 kg Physical Exam Narrative: General: No acute distress, AO x3, drowsy postop HEENT: PERRLA, pupils bilaterally equal and reactive Chest: Normal vesicular breath sounds, no added sounds, equal good air entry bilaterally CVS: S1-S2 regular, no murmurs, no tachycardia, no gallops, no rubs Abdomen: Soft, nontender, no organomegaly, bowel sounds present Neuro: No focal deficits, no facial deformity, AO x3, power 5/5 in all limbs Urinary Catheter Management: Dixon: Cath Placed During This Visit: yes Urinary Catheter Date of Insertion: 11/23/21 Urinary Catheter Time of Insertion: 13:40 Data : 11/18/21 10:32 11/18/21 10:32 A&P Assessment and plan (1) Osteoarthritis of left hip: Status: Acute (2) S/P total left hip arthroplasty: Status: Acute (3) Encounter for postoperative care: Status: Acute (4) Hypertension: Status: Acute (5) 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 Hypertension: Goal blood pressure less than 140/90 mmHg. 5 mg IV hydralazine every 6 hourly as needed for systolic blood pressure more than 180 mmHg. Restart home dose of lisinopril. Will uptitrate as per goals. Restart other home medications. Check A1c, lipid panel, iron panel, CBC, CMP, TSH in a.m. Diet as per primary team. Anticoagulation as per primary team. Famotidine for PUD prophylaxis. 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
[2021-11-23] MEDS: morphine 4 mg/mL SDV 1 mL 2 MG IVP ×3 (19:24→23:28)
[2021-11-23 19:31] LABS: Iron 66 ug/dL (37-145)
[2021-11-23 19:39] LABS: Thyroid Stimulating Hormone 3.34 uIU/mL (0.27-4.20)
[2021-11-23] MEDS: atorvastatin 40 mg Tablet 10 MG PO (20:10)
[2021-11-23 20:26] LABS: Percent Saturation 36.8 % (20-50); Total Iron Binding Capacity 179 mcg/dl; Unsaturated Iron Binding 113 ug/dL (112-347)
[2021-11-23] MEDS: oxyCODONE 5 mg IR Tab/Cap PO (21:21)
[2021-11-23] MEDS: ondansetron 2 mg/ML SDV 2 mL 4 MG IVP (21:27)
[2021-11-23] MEDS: hyDRALAzine 20 mg/mL INJ 1 mL 5 MG IVP (23:22)
[2021-11-24] VITALS (14 sets, daily range): BP systolic 169–176; BP diastolic 71–76; PULSE 81–96; RESP 16–26; TEMP 36.5–36.7; O2SAT 90–98
[2021-11-24] MEDS: acetaminophen 500 mg Tablet 1000 MG PO ×4 (00:40→23:51)
[2021-11-24] MEDS: morphine 4 mg/mL SDV 1 mL 2 MG IVP ×5 (00:40→20:49)
[2021-11-24] MEDS: oxyCODONE 5 mg IR Tab/Cap PO ×5 (03:01→23:51)
[2021-11-24 03:40] LABS: Basophils % 0.3 %; Hematocrit 37.3 % (37.0-47.0); Hemoglobin 12.5 g/dL (11.5-15.3); Lymphocytes # 0.8 10^3/uL (0.8-4.8); Lymphocytes % 5.8 %; Mean Corpuscular HGB Conc 33.5 g/dL (30.0-36.0); Mean Corpuscular Volume 86.5 fl (81-99); Mean Platelet Volume 8.4 fL (7.4-10.4); Monocytes # 0.8 10^3/uL (0.2-0.9); Monocytes % 5.9 %; Neutrophils # 12.11 10^3/uL (1.8-7.7); Neutrophils % 87.6 %; Nucleated Red Blood Cells % 0 %; Platelet Count 364 10^3/cmm (130-400); Red Blood Count 4.31 10^6/uL (4.1-5.3); Red Cell Distribution Width 13.3 % (12.1-15.1); White Blood Count 13.8 10^3/uL (4.0-10.0)
[2021-11-24 03:59] LABS: Alanine Aminotransferase 15 U/L (0-33); Alkaline Phosphatase 91 IU/L (35-105); Aspartate Amino Transferase 20 U/L (0-32); Blood Urea Nitrogen 9 mg/dL (8-23); Calcium 8.1 mg/dL (8.5-10.5); Carbon Dioxide 23 mmol/L (22-29); Chloride 109 mmol/L (98-107); Chol HDL Ratio 6.18 mg/dL (0.0-4.40); Cholesterol 173 mg/dL (0-200); Globulin 2.4 g/dL (1.3-4.6); Glucose 140 mg/dL (65-115); HDL Cholesterol 28 mg/dL (60-100); LDL Cholesterol Calculated 103 mg/dL (50-129); Osmolality Calculated 295 mOsm/kg (285-295); Sodium 142 mmol/L (136-145); Total Bilirubin 0.3 mg/dL (0.15-1.2); Total Protein 6.4 g/dL (6.6-8.7); Triglycerides 211 mg/dL (0-150); VLDL Cholestrol Calculation 42 mg/dL (0-30)
[2021-11-24 04:11] LABS: Anion Gap 14.6 (5-19); Potassium 4.6 mmol/L (3.5-5.1)
[2021-11-24 04:25] LABS: Estmated Average Glucose 111; Hemoglobin A1C 5.5 % (4.0-6.0)
[2021-11-24] MEDS: ondansetron 2 mg/ML SDV 2 mL 4 MG IVP ×2 (04:52→09:58)
[2021-11-24] MEDS: CELEcoxib 200 mg Capsule PO ×2 (05:01→17:17)
--- NOTE | 2021-11-24 07:54 | PM.PN ---
Subjective Subjective: Complains of pain. Mobilized to chair this am. Vitals/I&O/Wt Last Vital Signs Temp 97.2 F L 11/23/21 16:03 Pulse 84 11/23/21 22:00 Resp 20 H 11/24/21 04:53 BP 139/65 11/23/21 17:30 Pulse Ox 95 11/24/21 04:53 11/23/21 11/24/21 11/24/21 22:59 06:59 14:59 Intake Total 1075 / 2125 1050 / 3175 Output Total 2450 / 2450 250 / 2700 Balance -1375 / -325 800 / 475 Weight last 48 hrs Weight 182 lb Physical Exam Narrative: Left hip dressing clean and dry. Minimal swelling thigh Urinary Catheter Management: Dixon: Cath Placed During This Visit: yes Reason for Continuing Indwelling Catheter: Accurate Measurement of Urinary Output in Critically Ill Patients Urinary Catheter Date of Insertion: 11/23/21 Urinary Catheter Time of Insertion: 13:40 Data : 11/24/21 03:17 11/24/21 03:17 A&P Assessment and plan (1) S/P total left hip arthroplasty: Begin to mobilize with therapy. Status: Acute (2) Hypertension: Blood pressure improved. Will transfer to floor. Anticipate discharge tomorrow. Status: Acute Attestations Medical Necessity Statement*: Patient only beginning therapy today. Anticipate discharge tomorrow. Coding Level of Care Code Acute Drug Safety Data Management Specialist for José Padgett Diagnoses S/P total left hip arthroplasty Z96.642 Hypertension I10
[2021-11-24] MEDS: gabapentin 300 mg Capsule PO ×2 (08:04→17:17)
[2021-11-24] MEDS: venlafaxine ER (24HR) 150 mg Capsule PO (08:05)
[2021-11-24] MEDS: famotidine 20 mg Tablet PO ×2 (08:05→17:17)
[2021-11-24] MEDS: aspirin 81 mg EC Tablet PO (08:05)
[2021-11-24] MEDS: lisinopril 20 mg Tablet 40 MG PO (08:05)
[2021-11-24] MEDS: sodium chloride 0.9% 1,000 ML 100 ML IV (08:05)
[2021-11-24] MEDS: diazePAM 5 mg Tablet PO ×2 (08:13→17:17)
--- NOTE | 2021-11-24 10:15 | PC.CHAP ---
Pastoral Care Encounter/Spiritual Assessment Type of Contact [] Declined lacrosse player visit [] Patient/Family/Request visit [] Outpatient visit [] Follow-up visit [] Physician referral [] Code/Alert [x] Routine visit [] Staff referral [] Actively dying [] Patient sleeping [x] Family support [] [] Out of room [] Palliative care [] [x] Receiving care in room [] Pre-surgical visit [] Trauma [] Long length of stay [x] ICU visit [] Other: Relational/Emotional Strength [] Patient feels connected with others/family/visitors/staff [] Distress [] Loneliness/isolation [] Abandonment Spirituality of Patient [] Person of Janay [] Attends Taoist of their Janay [] Believes in Prayer [] Reads Bible or Yarsanism materials [] There are Spiritual issues to be addressed Academic Computing Director Interventions [x] Prayer [] Active listening [] Non-anxious presence [] Spiritual/emotional support [] Crisis/trauma care [] Spiritual counseling [] Bereavement support [] Provided bereavement packet [] Provided Bible/devotional materials [] Provided toy/stuffed animal, coloring book to patient or family member [] Provided Communion [] Anointing/[place] [] Salvation [x] Completed spiritual assessment [] Other: Impact on Illness or Injury [] Angry [] Fearful [] Anxious [] Often cries [] Exhaustion [] Unable to work [] Unable to attend presybeterian [] Unable to walk/stand [] Unable to read [] Unable to drive [] Unable to eat/drink [] Unable to sleep [] Unable to be with family [] Patient intubated [] Other: Summary Time spent with patient
--- NOTE | 2021-11-24 13:37 | PC.NURSE ---
Report called to Carlene, nurse on [facility] floor. Rosario, daughter notified of transfer to floor. Patient to go to room 260.
--- NOTE | 2021-11-24 14:36 | PM.PN ---
Subjective Subjective: No events overnight. Patient complaining of pain today morning. Working with physical therapy. States expected patient's pain level to be 0 postoperatively. Overnight blood pressures have remained stable. Required hydralazine 1 time only. Today morning blood pressures under control. As per the family members patient takes Valium 3 times a day scheduled rather than on as-needed basis. Dose of Valium has been changed to 5 mg twice daily scheduled. Vitals/I&O/Wt Last Vital Signs Temp 97.2 F L 11/23/21 16:03 Pulse 81 11/24/21 08:29 Resp 26 H 11/24/21 09:57 BP 139/65 11/23/21 17:30 Pulse Ox 95 11/24/21 09:57 11/23/21 11/24/21 11/24/21 22:59 06:59 14:59 Intake Total 1075 / 2125 1050 / 3175 1170 / 1170 Output Total 2450 / 2450 250 / 2700 850 / 850 Balance -1375 / -325 800 / 475 320 / 320 Weight last 48 hrs Weight 82.554 kg Physical Exam Narrative: General: Acute distress secondary to pain, AO x3, anxious HEENT: PERRLA, pupils bilaterally equal and reactive Chest: Normal vesicular breath sounds, no added sounds, equal good air entry bilaterally CVS: S1-S2 regular, no murmurs, no tachycardia, no gallops, no rubs Abdomen: Soft, nontender, no organomegaly, bowel sounds present Neuro: No focal deficits, no facial deformity, AO x3, power 5/5 in all limbs Urinary Catheter Management: Dixon: Cath Placed During This Visit: yes, but has since been removed by the nurse Reason for Continuing Indwelling Catheter: Accurate Measurement of Urinary Output in Critically Ill Patients Urinary Catheter Date of Insertion: 11/23/21 Urinary Catheter Time of Insertion: 13:40 Date Urinary Catheter Removed: 11/24/21 Time Urinary Catheter Discontinued: 09:59 Data : 11/24/21 03:17 11/24/21 03:17 A&P Assessment and plan (1) Osteoarthritis of left hip: Status: Acute (2) S/P total left hip arthroplasty: Status: Acute (3) Encounter for postoperative care: Status: Acute (4) Hypertension: Status: Acute (5) 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 Hypertension: Goal blood pressure less than 140/90 mmHg. 5 mg IV hydralazine every 6 hourly as needed for systolic blood pressure more than 180 mmHg. Continue with home dose of lisinopril. Will uptitrate as per goals. Anxiety/depression: Continue with home dose of venlafaxine, tizanidine as needed, diazepam. As per family patient takes diazepam 5 mg 3 times a day though outpatient chart states 5 mg twice daily as needed. For now we will change to Valium 5 mg twice daily. DC Dixon catheter, stop IV fluids. Regular diet Anticoagulation as per primary team. Famotidine for PUD prophylaxis. Attestations Medical Necessity Statement*: As per primary team Time Spent in Patient Care: 16 - 35 minutes Coding Level of Care Code Acute Biostatistics Manager for [facility] Fwd Diagnoses Osteoarthritis of left hip M16.12 S/P total left hip arthroplasty Z96.642 Encounter for postoperative care Z48.89 Hypertension I10 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 Z86.73 Asymptomatic carotid artery stenosis without infarction I65.29 Smoker unmotivated to quit F17.200
[2021-11-24] MEDS: atorvastatin 40 mg Tablet 10 MG PO (20:49)
[2021-11-24] MEDS: tizanidine 4 mg Tablet PO (20:49)
[2021-11-25] VITALS (13 sets, daily range): BP systolic 135–179; BP diastolic 65–81; PULSE 68–109; RESP 14–20; TEMP 36.3–37; O2SAT 89–98
[2021-11-25] MEDS: oxyCODONE 5 mg IR Tab/Cap PO ×2 (03:57→08:07)
[2021-11-25] MEDS: CELEcoxib 200 mg Capsule PO ×2 (05:39→16:43)
[2021-11-25] MEDS: diazePAM 5 mg Tablet PO ×2 (08:07→16:44)
[2021-11-25] MEDS: gabapentin 300 mg Capsule PO ×2 (08:07→16:43)
[2021-11-25] MEDS: venlafaxine ER (24HR) 150 mg Capsule PO (08:07)
[2021-11-25] MEDS: tizanidine 4 mg Tablet PO ×2 (08:07→20:47)
[2021-11-25] MEDS: lisinopril 20 mg Tablet 40 MG PO (08:07)
[2021-11-25] MEDS: acetaminophen 500 mg Tablet 1000 MG PO ×2 (08:07→16:40)
[2021-11-25] MEDS: famotidine 20 mg Tablet PO ×2 (08:08→16:44)
[2021-11-25] MEDS: aspirin 81 mg EC Tablet PO (08:08)
[2021-11-25] MEDS: amlodipine 10 mg Tablet PO (10:09)
[2021-11-25] MEDS: oxyCODONE 5 mg IR Tab/Cap 10 MG PO ×3 (12:12→20:47)
--- NOTE | 2021-11-25 12:38 | P.PN_ITS ---
Subjective Subjective: No events overnight. Today morning examination working with occupational therapy. Patient is visibly upset and anxious today. She states she is upset because she is going to rehab center and her expectations for that after surgery she will not have any pain and she will be going home. We discussed that for next couple of weeks she needs aggressive physical therapy and the realistic pain expectations should be around level of 5 for at least next couple of weeks as she is postoperative. During conversation from 1520 minutes patient is more agreeable and states that she understands it will be safer for her and better for her for quick recovery if she goes to SNF. Vitals/I&O/Wt Last Vital Signs Temp 98.1 F 11/25/21 12:00 Pulse 100 11/25/21 12:00 Resp 14 11/25/21 12:12 BP 137/65 11/25/21 12:00 Pulse Ox 93 11/25/21 12:00 11/24/21 11/25/21 11/25/21 22:59 06:59 14:59 Intake Total 120 / 1290 120 / 120 Output Total 200 / 200 Balance 120 / 440 -80 / -80 Weight last 48 hrs Weight 82.554 kg Physical Exam Narrative: General: Acute distress secondary to pain, AO x3, anxious HEENT: PERRLA, pupils bilaterally equal and reactive Chest: Normal vesicular breath sounds, no added sounds, equal good air entry bilaterally CVS: S1-S2 regular, no murmurs, no tachycardia, no gallops, no rubs Abdomen: Soft, nontender, no organomegaly, bowel sounds present Neuro: No focal deficits, no facial deformity, AO x3, power 5/5 in all limbs Urinary Catheter Management: Dixon: Cath Placed During This Visit: yes, but has since been removed by the nurse Reason for Continuing Indwelling Catheter: Accurate Measurement of Urinary Output in Critically Ill Patients Urinary Catheter Date of Insertion: 11/23/21 Urinary Catheter Time of Insertion: 13:40 Date Urinary Catheter Removed: 11/24/21 Time Urinary Catheter Discontinued: 09:59 Data : 11/24/21 03:17 11/24/21 03:17 A&P Assessment and plan (1) Osteoarthritis of left hip: Status: Acute (2) S/P total left hip arthroplasty: Status: Acute (3) Encounter for postoperative care: Status: Acute (4) Hypertension: Status: Acute (5) 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 Hypertension: Goal blood pressure less than 140/90 mmHg. Slightly elevated today secondary to pain and anxiety. Continue with home dose of lisinopril. Add amlodipine 10 mg daily. 5 mg IV hydralazine every 6 hourly as needed for systolic blood pressure more than 180 mmHg. Anxiety/depression: Continue with home dose of venlafaxine, tizanidine as needed, diazepam. As per family patient takes diazepam 5 mg 3 times a day though outpatient chart states 5 mg twice daily as needed. For now we will change to Valium 5 mg twice daily. Plan to discharge: Most likely plan to discharge to SNF for further rehabitation to avoid falls. Regular diet Anticoagulation as per primary team. Famotidine for PUD prophylaxis. Attestations Medical Necessity Statement*: As per primary team. Possibly requires safe discharge planning. Time Spent in Patient Care: Greater than 35 minutes Coding Level of Care Code Acute Cardiovascular Technician for Amyg Fwd Diagnoses Osteoarthritis of left hip M16.12 S/P total left hip arthroplasty Z96.642 Encounter for postoperative care Z48.89 Hypertension I10 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 Z86.73 Asymptomatic carotid artery stenosis without infarction I65.29 Smoker unmotivated to quit F17.200
--- NOTE | 2021-11-25 18:10 | PC.NURSE ---
PATIENT'S PAIN BEEN BETTER CONTROLLED WITH THE INCREASE IN OXY IR TODAY. PATIENT HAS BEEN UP TO THE CHAIR MULTIPLE TIMES TODAY. WORKED WITH THERAPY. GOOD PO INTAKE AND OUTPUT. CURRENTLY SITTING IN THE CHAIR WATCHING TV AT THIS TIME.
[2021-11-25] MEDS: atorvastatin 40 mg Tablet 10 MG PO (20:47)
[2021-11-26] VITALS (8 sets, daily range): BP systolic 96–159; BP diastolic 62–85; PULSE 82–97; RESP 14–22; TEMP 36.4–37.1; O2SAT 90–97
[2021-11-26] MEDS: oxyCODONE 5 mg IR Tab/Cap 10 MG PO ×4 (00:53→12:13)
[2021-11-26] MEDS: acetaminophen 500 mg Tablet 1000 MG PO ×2 (00:54→09:16)
[2021-11-26] MEDS: CELEcoxib 200 mg Capsule PO (04:41)
[2021-11-26] MEDS: diazePAM 5 mg Tablet PO (09:16)
[2021-11-26] MEDS: lisinopril 20 mg Tablet 40 MG PO (09:16)
[2021-11-26] MEDS: venlafaxine ER (24HR) 150 mg Capsule PO (09:16)
[2021-11-26] MEDS: amlodipine 10 mg Tablet PO (09:17)
[2021-11-26] MEDS: gabapentin 300 mg Capsule PO (09:17)
[2021-11-26] MEDS: aspirin 81 mg EC Tablet PO (09:17)
[2021-11-26] MEDS: famotidine 20 mg Tablet PO (09:17)
--- NOTE | 2021-11-26 11:19 | P.DS_ITS ---
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 The patient had problems with hypertension postoperatively and was managed overnight in our intensive care unit. By the first postoperative day things have improved. They was begun on aspirin and sequential compression dressing for DVT prophylaxis. The patient was mobilized with therapy beginning the day after surgery but made very slow progress. By the third postoperative day she was independent with her walker and chose discharge home as opposed to a group home facility. As the pain was adequately controlled and they were fully mobile they were discharged home. Physical Exam Narrative: On the day of discharge the hip incision was clean. The incision was free of drainage. They had no particular swelling about the thigh or distal. No distal neurovascular deficits were noted. Urinary Catheter Management: Dixon: Cath Placed During This Visit: yes, but has since been removed by the nurse Reason for Continuing Indwelling Catheter: Accurate Measurement of Urinary Output in Critically Ill Patients Urinary Catheter Date of Insertion: 11/23/21 Urinary Catheter Time of Insertion: 13:40 Date Urinary Catheter Removed: 11/24/21 Time Urinary Catheter Discontinued: 09:59 Discharge Data Studies Completed and Pending Completed Studies During Hospitalization Category Date Time Status XR hip LT 1V wo/w pel [id number] Routine Exams 11/23/21 15:34 Completed Pending at discharge Category Date Time Status Comprehensive Metabolic Panel AM LABS Lab 11/27/21 04:00 Ordered Radiology Impressions Hip X-Ray 11/23/21 15:34 IMPRESSION: Total left hip arthroplasty without abnormality. Laboratory Results WBC 13.8 10^3/uL (4.0-10.0) H 11/24/21 03:17 RBC 4.31 10^6/uL (4.1-5.3) 11/24/21 03:17 Hgb 12.5 g/dL (11.5-15.3) 11/24/21 03:17 Hct 37.3 % (37.0-47.0) 11/24/21 03:17 MCV 86.5 fl (81-99) 11/24/21 03:17 MCH 29.0 pg (28.0-34.0) 11/24/21 03:17 MCHC 33.5 g/dL (30.0-36.0) 11/24/21 03:17 RDW 13.3 % (12.1-15.1) 11/24/21 03:17 Plt Count 364 10^3/cmm (130-400) 11/24/21 03:17 MPV 8.4 fL (7.4-10.4) 11/24/21 03:17 Neut % (Auto) 87.6 % 11/24/21 03:17 Lymph % (Auto) 5.8 % 11/24/21 03:17 Gilliam % (Auto) 5.9 % 11/24/21 03:17 Eos % (Auto) 0.0 % 11/24/21 03:17 Baso % (Auto) 0.3 % 11/24/21 03:17 Neut # (Auto) 12.11 10^3/uL (1.8-7.7) H 11/24/21 03:17 Lymph # (Auto) 0.8 10^3/uL (0.8-4.8) 11/24/21 03:17 Gilliam # (Auto) 0.8 10^3/uL (0.2-0.9) 11/24/21 03:17 Eos # (Auto) 0.0 10^3/uL (0.0-0.8) 11/24/21 03:17 Baso # (Auto) 0.0 10^3/uL (0.0-0.1) 11/24/21 03:17 Nucleated RBC % (auto) 0 % 11/24/21 03:17 Nucleated RBCs # 0.0 /100WBC 11/24/21 03:17 Sodium 142 mmol/L (136-145) 11/24/21 03:17 Potassium 4.6 mmol/L (3.5-5.1) 11/24/21 03:17 Chloride 109 mmol/L (98-107) H 11/24/21 03:17 Carbon Dioxide 23 mmol/L (22-29) 11/24/21 03:17 Anion Gap 14.6 (5-19) 11/24/21 03:17 BUN 9 mg/dL (8-23) 11/24/21 03:17 Creatinine 0.5 mg/dL (0.5-0.9) 11/24/21 03:17 GFR Calculation Not Reportable 11/24/21 03:17 Glucose 140 mg/dL (65-115) H 11/24/21 03:17 Estimat Average Glucose 111 11/24/21 03:17 Hemoglobin A1c 5.5 % (4.0-6.0) 11/24/21 03:17 Calculated Osmolality 295 mOsm/kg (285-295) 11/24/21 03:17 Calcium 8.1 mg/dL (8.5-10.5) L 11/24/21 03:17 Iron 66 ug/dL (37-145) 11/23/21 18:06 TIBC 179 mcg/dl 11/23/21 18:06 % Saturation 36.8 % (20-50) 11/23/21 18:06 Unsat Iron Binding 113 ug/dL (112-347) 11/23/21 18:06 Total Bilirubin 0.3 mg/dL (0.15-1.2) 11/24/21 03:17 AST 20 U/L (0-32) 11/24/21 03:17 ALT 15 U/L (0-33) 11/24/21 03:17 Alkaline Phosphatase 91 IU/L (35-105) 11/24/21 03:17 Total Protein 6.4 g/dL (6.6-8.7) L 11/24/21 03:17 Albumin 4.0 g/dL (3.5-5.2) 11/24/21 03:17 Globulin 2.4 g/dL (1.3-4.6) 11/24/21 03:17 Triglycerides 211 mg/dL (0-150) H 11/24/21 03:17 Cholesterol 173 mg/dL (0-200) 11/24/21 03:17 LDL Cholesterol, Calc 103 mg/dL (50-129) 11/24/21 03:17 Total VLDL Cholesterol 42 mg/dL (0-30) H 11/24/21 03:17 HDL Cholesterol 28 mg/dL (60-100) L 11/24/21 03:17 Cholesterol/HDL Ratio 6.18 mg/dL (0.0-4.40) H 11/24/21 03:17 TSH 3.34 uIU/mL (0.27-4.20) 11/23/21 18:06 Vitals Last Vital Signs Temp 97.9 F 11/26/21 07:53 Pulse 88 11/26/21 07:53 Resp 18 11/26/21 08:12 BP 157/85 11/26/21 07:53 Pulse Ox 95 11/26/21 08:12 Discharge Plan Discharge Condition: Stable Prescriptions: New oxycodone 5 mg Tablet 5 mg PO Q4H PRN (Reason: Moderate Pain) 7 Days Qty: 40 0RF acetaminophen 500 mg Tablet 1,000 mg PO Q8H 14 Days Qty: 84 0RF celecoxib 200 mg Capsule 200 mg PO Q12H 14 Days Qty: 28 0RF Continued tizanidine 4 mg tablet 4 mg PO TID PRN (Reason: Muscle Pain) 0RF Rx Instructions: PT STATES SHE TAKES 8MG IN THE AM AND 4 MG AT BEDTIME simvastatin 10 mg tablet 10 mg PO BEDTIME 0RF venlafaxine 150 mg capsule,extended release 24hr 150 mg PO DAILY 0RF aspirin [Aspir-81] 81 mg Tablet,Delayed Release (Dr/Ec) 81 mg PO DAILY 0RF meclizine 25 mg tablet 25 mg PO TID PRN (Reason: Dizziness) 0RF lisinopril 40 mg tablet 40 mg PO DAILY 0RF diazepam 5 mg tablet 5 mg PO BID PRN (Reason: UNKNOWN) 0RF azelastine 0.15 % (205.5 mcg) spray,non-aerosol 2 spray INTRANASAL BID PRN (Reason: Nasal Congestion) 0RF Coricidin HBP Cold and Flu See Rx Instructions .ROUTE .COMPLEX 0RF Rx Instructions: PRN ondansetron HCl [Zofran] 4 mg Tablet 4 mg PO Q4-5H PRN (Reason: Nausea) 0RF albuterol sulfate 90 mcg/actuation Hfa Aerosol Inhaler 2 puff INHALATION Q4-5H PRN (Reason: Wheezing) 0RF Zyrtec 10 mg Capsule 10 mg PO DAILY 0RF Discontinued naproxen sodium [Aleve] 220 mg Tablet 220 mg PO PRN PRN (Reason: Pain) 0RF ibuprofen 200 mg Tablet 800 mg PO Q6H PRN (Reason: Pain) 0RF Discharge Orders: Discharge Order (Routine); Ordered 11/26/21 Ordered By: Giles Cid Referrals: Lei Marcos FNP [Physician Administrative Support Clerk] - 11/27/21 10:15 am Discharge Diet: Advance as tolerated Discharge Activity: Limit activity as instructed Patient Instructions: Opioid Safety Activity Restrictions/Additional Instructions: Okay to shower. No soaking incision in tub Apply FirstIce up to 20 min/hr for pain and swelling Take Celebrex twice a day for the next 15 days for pain , discontinue other anti-inflammatories Take Tylenol 500mg (up to 2 tabs) 3 times a day for mild pain Take oxycodone for breakthrough pain. Exercises per physical therapy. May weight-bear as tolerated on total hip arthroplasty IF HAVE ANY PROBLEMS OR QUESTIONS CALL HOSPITAL RADIOISOTOPE PRODUCTION OPERATOR AT AND ASK TO HAVE DR. CID PAGED. Discharge Attestations Time Spent in Discharge Care*: other Quality Metrics Clinical Quality Measures [ No reported AMI, CVA or VTE this stay] Coding Level of Care Code Acute Chg FW DC note Diagnoses Osteoarthritis of left hip M16.12 S/P total left hip arthroplasty Z96.642 Encounter for postoperative care Z48.89 Hypertension I10 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 Z86.73 Asymptomatic carotid artery stenosis without infarction I65.29 Smoker unmotivated to quit F17.200
--- NOTE | 2021-11-26 11:31 | P.PN_ITS ---
Subjective Subjective: No acute events overnight. Patient denies any nausea vomiting, headache. Today seen with daughter at bedside. I am told patient is going home with home health today. She will be living at her daughter's house. Being discharged from orthopedic services. Blood pressure well controlled Vitals/I&O/Wt Last Vital Signs Temp 97.9 F 11/26/21 07:53 Pulse 88 11/26/21 07:53 Resp 18 11/26/21 08:12 BP 157/85 11/26/21 07:53 Pulse Ox 95 11/26/21 08:12 11/25/21 11/26/21 11/26/21 22:59 06:59 14:59 Intake Total 360 / 480 200 / 680 260 / 260 Output Total 800 / 1000 50 / 1050 Balance -440 / -520 150 / -370 260 / 260 Physical Exam Narrative: General: Acute distress secondary to pain, AO x3, anxious HEENT: PERRLA, pupils bilaterally equal and reactive Chest: Normal vesicular breath sounds, no added sounds, equal good air entry bilaterally CVS: S1-S2 regular, no murmurs, no tachycardia, no gallops, no rubs Abdomen: Soft, nontender, no organomegaly, bowel sounds present Neuro: No focal deficits, no facial deformity, AO x3, power 5/5 in all limbs Urinary Catheter Management: Dixon: Cath Placed During This Visit: yes, but has since been removed by the nurse Reason for Continuing Indwelling Catheter: Accurate Measurement of Urinary Output in Critically Ill Patients Urinary Catheter Date of Insertion: 11/23/21 Urinary Catheter Time of Insertion: 13:40 Date Urinary Catheter Removed: 11/24/21 Time Urinary Catheter Discontinued: 09:59 Data : 11/24/21 03:17 11/24/21 03:17 A&P Assessment and plan (1) Osteoarthritis of left hip: Status: Acute (2) S/P total left hip arthroplasty: Status: Acute (3) Encounter for postoperative care: Status: Acute (4) Hypertension: Status: Acute (5) 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 Hypertension: Goal blood pressure less than 140/90 mmHg. Slightly elevated today secondary to pain and anxiety. Continue with home dose of lisinopril. Add amlodipine 10 mg daily. 5 mg IV hydralazine every 6 hourly as needed for systolic blood pressure more than 180 mmHg. Anxiety/depression: Continue with home dose of venlafaxine, tizanidine as needed, diazepam. As per family patient takes diazepam 5 mg 3 times a day [facility] outpatient chart states 5 mg twice daily as needed. For now we will change to Valium 5 mg twice daily. Plan to discharge: Most likely plan to discharge to SNF for further rehabitation to avoid falls. Regular diet Anticoagulation as per primary team. Famotidine for PUD prophylaxis. On discharge patient should continue the same medications for anxiety and hypertension as before. We will add amlodipine 10 mg daily to her medication list. We will ask her to check her blood pressure daily and maintain a blood pressure diary and follow-up with her primary care provider within next 2 weeks for further adjustment of antihypertensive needed. Attestations Medical Necessity Statement*: Being discharged from primary team. Blood pressure better controlled Time Spent in Patient Care: Greater than 35 minutes Coding Level of Care Code Acute Civil Project Engineer for Amyg Fwd Diagnoses Osteoarthritis of left hip M16.12 S/P total left hip arthroplasty Z96.642 Encounter for postoperative care Z48.89 Hypertension I10 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 Z86.73 Asymptomatic carotid artery stenosis without infarction I65.29 Smoker unmotivated to quit F17.200
== END 2021-11-26 12:40 | disposition home health service (06) | DRG 470 ==
LOC: ICU 22:34 → MEDSURG 11-24 14:07
PROVIDERS: Anesthesiology; Student in an Organized Health Care Education/Training Program; Admitting Provider Orthopaedic Surgery; PCP Internal Medicine; Visit Provider Orthopaedic Surgery
PROC: 0SRB03A Replacement of Left Hip Joint with Ceramic Synthetic Substitute, Uncemented, Open Approach (ICD-10-PCS; CPT 27130; principal; 2021-11-23 11:55)
DX: M16.12 Unilateral primary osteoarthritis, left hip (principal); F41.8 Other specified anxiety disorders; E78.5 Hyperlipidemia, unspecified; F41.0 Panic disorder [episodic paroxysmal anxiety]; F17.210 Nicotine dependence, cigarettes, uncomplicated; I65.23 Occlusion and stenosis of bilateral carotid arteries; Z86.73 Personal history of transient ischemic attack (TIA), and cerebral infarction without residual deficits; I10 Essential (primary) hypertension
CPT/HCPCS: 36415; 51702; 73501; 80048; 80053; 80061; 83036; 83540; 83550; 84443; 85025; 93005; 94640; 97110; 97116; 97162; 97165; 97530; 97535; C1713; C1776; G0378; J0360; J1100; J1170; J2250; J2270; J2405; J2704; J3010; J3260; J3490; J7030

== ENCOUNTER → 2021-12-01 13:16 | Outpatient (BNVA) | payer MEDICARE, MEDICAID, SELFPAY | PROVIDERS: PCP Internal Medicine; Visit Provider Nurse Practitioner Family | DX: Z98.890 Other specified postprocedural states (principal) | CPT/HCPCS: 99024 ==

== ENCOUNTER → 2021-12-22 13:23 | Outpatient (BNVA) | payer MEDICARE, MEDICAID, SELFPAY | PROVIDERS: PCP Internal Medicine; Visit Provider Nurse Practitioner Family | DX: Z96.642 Presence of left artificial hip joint (principal); Z98.890 Other specified postprocedural states | CPT/HCPCS: 73502; 99024 ==

== ENCOUNTER 2021-12-31 12:30 | Outpatient (CLI) | payer MEDICARE, MEDICAID, SELFPAY ==
--- NOTE | 2021-12-31 12:00 | USCV_ITS ---
Sindhu Eavns Age: 71 Gender: F : 1950 Exam Date: 12/31/2021 13:22 Ordering Phys: Vidal Moreno MD (Andy) ([email or web address] [place]) Technologist: SILVESTRE [place]am Location: [facility] [place]ication: Carotid Stenosis Risk Factors: Previous Vascular Surgery: Right Brachial BP: / Left Brachial BP: / Right Left Velocity (cm/s) Spectral Plaque Velocity (cm/s) Spectral Plaque Syst/Diast Broadening Syst/Diast Broadening 56.70/ 10.90 Prox CCA 66.40 / 15.10 44.40/ 9.80 Mid CCA 42.10 / 12.50 381.17/134.63 Hetro Distal CCA 297.40/ 71.10 Hetro 123.50/29.80 Prox ICA 143.80/ 32.60 74.60/ 19.40 Mid ICA 152.50/ 39.20 42.20/ 16.60 Distal ICA 91.00 / 24.50 109.20 ECA 230.30 1.68 ICA/CCA 3.63 Antegrade Vertebral Antegrade 33.60/ 8.50 cm/s 45.30/ 11.80 cm/s Tri Subclavian Tri 115.0 217.7 0 0 FINDINGS comparison 06/18/21 CONCLUSIONS Right ICA stenosis 70-99%. with elevated velocities in the Right carotid bulb similiar to previous. This can be further evaluated with CTA. Moderate atheromatous plaque right carotid bulb/ICA. Left ICA stenosis 50-69% stable from previous, however increased carotid bulb stenosis 70-99%. Recommend CTA. Moderate atheromatous plaque left carotid bulb/ICA. Normal antegrade Doppler flow noted in the right vertebral artery. Normal antegrade Doppler flow noted in the left vertebral artery. Alejandro Faye MD (Electronically Signed) Final Date: 03 January 2022 15:42 S
== END 2021-12-31 12:31 | disposition home or self-care (01) ==
PROVIDERS: PCP Internal Medicine; Visit Provider Thoracic Surgery (Cardiothoracic Vascular Surgery)
DX: I65.23 Occlusion and stenosis of bilateral carotid arteries (principal)
CPT/HCPCS: 93880

== ENCOUNTER → 2022-03-10 14:42 | Outpatient (BNVA) | payer MEDICARE, MEDICAID, SELFPAY | PROVIDERS: PCP Internal Medicine; Visit Provider Specialist | DX: I65.23 Occlusion and stenosis of bilateral carotid arteries (principal); R25.1 Tremor, unspecified; F32.9 Major depressive disorder, single episode, unspecified; F17.210 Nicotine dependence, cigarettes, uncomplicated | CPT/HCPCS: 99214 ==

== ENCOUNTER → 2022-03-26 10:54 | Outpatient (BNVA) | payer MEDICARE, MEDICAID, SELFPAY | PROVIDERS: PCP Internal Medicine; Visit Provider Nurse Practitioner Family | DX: Z98.890 Other specified postprocedural states (principal); Z96.642 Presence of left artificial hip joint | CPT/HCPCS: 73502; 99213 ==

== ENCOUNTER → 2022-04-29 10:43 | Outpatient (BNVA) | payer MEDICARE, MEDICAID, SELFPAY | PROVIDERS: PCP Internal Medicine; Visit Provider Thoracic Surgery (Cardiothoracic Vascular Surgery) | DX: I65.29 Occlusion and stenosis of unspecified carotid artery (principal); F17.210 Nicotine dependence, cigarettes, uncomplicated; I10 Essential (primary) hypertension | CPT/HCPCS: 99213 ==

== ENCOUNTER 2022-07-06 11:42 | Outpatient (CLI) | payer MEDICARE, MEDICAID, SELFPAY ==
--- NOTE | 2022-07-06 12:00 | USCV_ITS ---
Sindhu Evans Age: 71 Gender: F : 1950 Exam Date: 07/06/2022 12:18 Ordering Phys: Vidal Moreno MD (Andy) ([email or web address] [place]) Technologist: SILVESTRE [place] [facility] [place]: Stenosis Risk Factors: Previous Vascular Surgery: Right Brachial BP: / Left Brachial BP: / Right Left Velocity (cm/s) Spectral Plaque Velocity (cm/s) Spectral Plaque Syst/Diast Broadening Syst/Diast Broadening 63.10/ 7.20 Prox CCA 44.70 / 8.70 43.40/ 11.80 Mid CCA 35.40 / 9.30 73.00/ 15.10 Distal CCA 37.20 / 10.50 271.40/76.40 Prox ICA 130.20/ 23.60 199.70/36.00 Mid ICA 126.90/ 30.40 52.40/ 15.30 Distal ICA 149.90/ 26.30 143.30 ECA 198.60 3.72 ICA/CCA 3.36 Vertebral 21.70/ 6.20 cm/s 35.70/ 12.40 cm/s Subclavian 119.6 82.70 0 FINDINGS comp 01/18 CONCLUSIONS Right ICA stenosis 70-99% with velocities similiar to previous, slightly decreased in some areas. Moderate atheromatous plaque right carotid bulb/ICA. Left ICA stenosis 50-69%. Moderate atheromatous plaque left carotid bulb/ICA. Normal antegrade Doppler flow noted in the right vertebral artery. Normal antegrade Doppler flow noted in the left vertebral artery. Alejandro Faye MD (Electronically Signed) Final Date: 06 July 2022 13:59 S
== END 2022-07-06 11:43 | disposition home or self-care (01) ==
LOC: RAD 11:47
PROVIDERS: PCP Internal Medicine; Visit Provider Thoracic Surgery (Cardiothoracic Vascular Surgery)
DX: I65.29 Occlusion and stenosis of unspecified carotid artery (principal)
CPT/HCPCS: 93880

== ENCOUNTER → 2022-07-22 09:41 | Outpatient (BNVA) | payer MEDICARE, MEDICAID, SELFPAY | PROVIDERS: PCP Internal Medicine; Visit Provider Thoracic Surgery (Cardiothoracic Vascular Surgery) | DX: I65.23 Occlusion and stenosis of bilateral carotid arteries (principal); F17.210 Nicotine dependence, cigarettes, uncomplicated | CPT/HCPCS: 99213 ==

== ENCOUNTER 2023-01-19 14:03 | Outpatient (CLI) | payer MEDICARE, MEDICAID, SELFPAY ==
--- NOTE | 2023-01-19 14:30 | USCV_ITS ---
Sindhu Evans Age: 72 Gender: F : 1950 Exam Date: 01/19/2023 14:43 Ordering Phys: Vidal Moreno MD (Andy) ([email or web address] [place]) Technologist: [place] [facility] [place]: cca stenosis Risk Factors: Previous Vascular Surgery: Right Brachial BP: / Left Brachial BP: / Right Left Velocity (cm/s) Spectral Plaque Velocity (cm/s) Spectral Plaque Syst/Diast Broadening Syst/Diast Broadening 51.90/ 9.20 Prox CCA 37.50 / 9.90 48.60/ 7.20 Mid CCA 37.50 / 9.90 49.30/ 9.20 Hetro Distal CCA 51.30 / 17.10 Hetro 323.40/52.60 Hetro Prox ICA 205.10/ 43.20 Hetro 226.10/47.30 Mid ICA 178.70/ 43.50 163.00/39.40 Distal ICA 104.10/ 31.10 251.30 ECA 161.90 6.23 ICA/CCA 4.00 Antegrade Vertebral Antegrade 111.9/ 41.90 cm/s 63.70/ 14.00 cm/s 0 Bi Subclavian Bi 122.7 158.5 0 0 FINDINGS Progressed velocities Bilateral ICA since 07/22 CONCLUSIONS Right ICA stenosis 70-99%. Moderate atheromatous plaque right carotid bulb/ICA. Recommend CTA further evaluation Left ICA stenosis 50-69%. Moderate atheromatous plaque left carotid bulb/ICA. Normal antegrade Doppler flow noted in the right vertebral artery. Normal antegrade Doppler flow noted in the left vertebral artery. Alejandro Faye MD (Electronically Signed) Final Date: 19 January 2023 16:28 S
== END 2023-01-19 14:04 | disposition home or self-care (01) ==
PROVIDERS: PCP Internal Medicine; Visit Provider Thoracic Surgery (Cardiothoracic Vascular Surgery)
DX: I65.23 Occlusion and stenosis of bilateral carotid arteries (principal)
CPT/HCPCS: 93880

== ENCOUNTER → 2023-02-03 08:38 | Outpatient (BNVA) | payer MEDICARE, MEDICAID, SELFPAY | PROVIDERS: PCP Internal Medicine; Visit Provider Thoracic Surgery (Cardiothoracic Vascular Surgery) | DX: I65.23 Occlusion and stenosis of bilateral carotid arteries (principal); I10 Essential (primary) hypertension; F17.210 Nicotine dependence, cigarettes, uncomplicated | CPT/HCPCS: 99213 ==

== ENCOUNTER 2023-03-02 14:45 | Outpatient (CLI) | payer MEDICARE, MEDICAID, SELFPAY ==
--- NOTE | 2023-03-02 15:00 | CT_ITS ---
WS: [id number] CTA NECK TECHNIQUE: Contrast enhanced CTA of the neck with coronal and sagittal reformatted images and maximum intensity projection (MIP) images. NASCET criteria utilized. CLINICAL INFORMATION: bilat carotid stenosis COMPARISON: CTA 09/01/2021 DLP: 251.[address] scans at [facility] use at least one of these dose optimization techniques: automated e xposure control; mA and/or kV adjustment per patient size (includes targeted exams where dose is matc hed to clinical indication); or iterative reconstruction. FINDINGS: RIGHT: RIGHT common carotid artery is patent. Dense calcified atheromatous plaque RIGHT carotid bulb extending into the ICA. RIGHT ICA stenosis measures approximately 70% unchanged from previous. Ulcera jonny irregular atheromatous plaque. Moderate stenosis RIGHT ECA origin. RIGHT ICA is patent to the [facility] base. Cavernous carotid calcification partially visualized. Retropharyngeal course RIGHT CCA LEFT: LEFT common carotid artery is patent. Dense calcified atheromatous plaque LEFT carotid bulb ext ending into the ICA. LEFT ICA stenosis measures approximately 73%. LEFT ICA remains patent to the [facility] base. This is unchanged from previous. Severe stenosis of the LEFT ECA origin. Cavernous carotid c alcification partially visualized. Ectatic ascending thoracic aorta partially visualized measuring 3.9 cm. Both vertebral arteries are p atent. Proximal basilar artery is patent. Lung apices are well aerated. Greater than 50% stenosis LEF T subclavian artery origin unchanged. Mastoid air cells and paranasal sinuses are well aerated. Strai ghtening the normal cervical lordosis. Moderate spondylitic changes cervical spine. IMPRESSION: Overall no significant change compared to previous. 1. Dense calcified atheromatous plaque both carotid bulbs extending into the ICAs. RIGHT ICA stenosi s approximately 70%. LEFT ICA stenosis 73% unchanged from previous. 2. Both vertebral arteries are patent. 3. Retropharyngeal course RIGHT CCA. 4. Greater than 50% narrowing LEFT subclavian artery origin unchanged.
[2023-03-02 15:39] LABS: Blood Urea Nitrogen 10 mg/dL (8-23)
[2023-03-02] MEDS: iohexol 350 mg/mL 500 mL Btl (per mL) IV (15:56)
== END 2023-03-02 14:46 | disposition home or self-care (01) ==
PROVIDERS: PCP Internal Medicine; Visit Provider Thoracic Surgery (Cardiothoracic Vascular Surgery)
DX: I65.23 Occlusion and stenosis of bilateral carotid arteries (principal)
CPT/HCPCS: 70498; 82565; 84520; Q9967

== ENCOUNTER → 2023-03-10 09:28 | Outpatient (BNVA) | payer MEDICARE, MEDICAID, SELFPAY | PROVIDERS: PCP Internal Medicine; Visit Provider Thoracic Surgery (Cardiothoracic Vascular Surgery) | DX: I77.9 Disorder of arteries and arterioles, unspecified (principal); I10 Essential (primary) hypertension; F17.210 Nicotine dependence, cigarettes, uncomplicated | CPT/HCPCS: 99213 ==

== ENCOUNTER → 2023-03-31 14:37 | Outpatient (BNVA) | payer MEDICARE, MEDICAID, SELFPAY | PROVIDERS: PCP Internal Medicine; Visit Provider Specialist | DX: G30.9 Alzheimer's disease, unspecified (principal); I65.29 Occlusion and stenosis of unspecified carotid artery; F02.80 Dementia in other diseases classified elsewhere, unspecified severity, without behavioral disturbance, psychotic disturbance, mood disturbance, and anxiety; F17.210 Nicotine dependence, cigarettes, uncomplicated; G25.0 Essential tremor | CPT/HCPCS: 96116; 99215 ==

== ENCOUNTER → 2023-07-22 10:22 | Outpatient (BNVA) | payer MEDICARE, MEDICAID, SELFPAY | PROVIDERS: PCP Internal Medicine; Visit Provider Specialist | DX: G31.84 Mild cognitive impairment of uncertain or unknown etiology (principal); G30.9 Alzheimer's disease, unspecified; F02.80 Dementia in other diseases classified elsewhere, unspecified severity, without behavioral disturbance, psychotic disturbance, mood disturbance, and anxiety; R25.1 Tremor, unspecified | CPT/HCPCS: 36415; 80053; 82607; 83516; 85025; 99214 ==

== ENCOUNTER 2023-08-08 09:52 | Outpatient (CLI) | payer MEDICARE, MEDICAID, SELFPAY ==
--- NOTE | 2023-08-08 10:15 | US_ITS ---
WS: [id number] ULTRASOUND ABDOMEN LIMITED CLINICAL INFORMATION: R74.8 - Abnormal levels of other serum enzymes COMPARISON: None. FINDINGS: Liver Size: Enlarged Craniocaudal length: 18.3 cm. Echogenicity: Coarse Surface nodularity: None. Mass (size and location): Incidental hepatic cysts described below Bile ducts Intrahepatic ducts: Normal. Common bile duct diameter: 0.7 cm. Gallbladder Cholecystectomy Pancreas Normal as visualized. Right kidney: Normal. Hydronephrosis: None. Size: 10.6 cm x 3.8 cm x 4.2 cm. Abdominal aorta and IVC Visualized portions are normal. Ascites: None. IMPRESSION: 1. Incidental hepatic cysts. Largest cyst measures 3.3 x 3.9 cm. Smaller hepatic cyst measures 1.3 x 1.8 cm. 2. Mild hepatomegaly with mild diffuse fatty infiltration 3. Cholecystectomy. 4. Prominent common bile duct measuring 7 mm likely physiologic postcholecystectomy. 5. No hydronephrosis in the RIGHT kidney.
== END 2023-08-08 09:53 | disposition home or self-care (01) ==
LOC: RAD 09:54
PROVIDERS: PCP Internal Medicine; Visit Provider Specialist
DX: R74.8 Abnormal levels of other serum enzymes (principal); K76.89 Other specified diseases of liver; R16.0 Hepatomegaly, not elsewhere classified
CPT/HCPCS: 76705

== ENCOUNTER 2023-11-12 11:58 | Emergency (ER) | payer MEDICARE, MEDICAID, SELFPAY ==
[2023-11-12 12:05] VITALS: BP 158/105; PULSE 90; RESP 18; TEMP 36.6; O2SAT 93
--- NOTE | 2023-11-12 12:07 | CTR_ITS ---
PROCEDURE INFORMATION: Exam: CT Pelvis Without Contrast; Skeletal Exam date and time: 11/12/2023 12:33 PM Age: 73 years old Clinical indication: Pain and injury or trauma; Fall; Blunt trauma (contusions or hematomas); Pelvic region; Hip pain and pelvic pain; Right hip; Prior surgery; Surgery date: 6+ months; Surgery type: Left hip; Additional info: Right hip, pelvic pain. Fall three weeks ago TECHNIQUE: Imaging protocol: Computed tomography of the pelvis without contrast. Exam focused on the skeleton. Radiation optimization: All CT scans at this facility use at least one of these dose optimization techniques: automated exposure control; mA and/or kV adjustment per patient size (includes targeted exams where dose is matched to clinical indication); or iterative reconstruction. COMPARISON: CT kidney stone [id number] 02/24/2020 4:08 PM RADIATION DOSE METRICS: Total DLP (mGy-cm): 675.19 FINDINGS: Kidneys and ureters: Nonobstructing left renal calculi. Kidneys are partially visualized. Intestine: There is diverticulosis of the colon without evidence of diverticulitis. Vasculature: There are peripheral vascular calcifications. 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 Bones/joints: Status post left total hip replacement. Hardware appears intact without obvious complication. There are osteoarthritic changes across the right hip joint including joint space narrowing, marginal osteophyte formations, and subchondral cystic changes. Moderate to severe degenerative changes extend across the sacroiliac joints and pubic symphysis. Severe degenerative changes are present in the visualized lower lumbar spine. 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 Grade 1 anterolisthesis of L4 on L5 with resultant bilateral neural foraminal narrowing. Lower lumbar broad-based disc osteophyte complexes. Soft tissues: Unremarkable. CT/CT pelvis wo con [id number] IMPRESSION: 1. Status post left total hip replacement. Hardware appears intact without obvious complication. 2. There are osteoarthritic changes across the right hip joint as described above. 3. Severe degenerative changes are present in the visualized lower lumbar spine. 4. 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 Grade 1 anterolisthesis of L4 on L5 with resultant bilateral neural foraminal narrowing. 5. Lower lumbar broad-based disc osteophyte complexes.
--- NOTE | 2023-11-12 12:29 | W.ED.FALL ---
HPI - Fall General: Chief Complaint: Fall Stated Complaint: FALL Time Seen by Provider: 11/12/23 12:03 History of Present Illness: 73-year-old female with a history of hypertension, tobacco abuse, anxiety, depression and hyperlipidemia who presents to the emergency room with right hip pain. She says she had a fall 3 weeks ago. She was evaluated in urgent care at some point and had an x-ray that was negative she says. The pain is just continued to worsen. She is able to walk but with some pain. There is no shortening or rotation of her leg. She moves her leg easily and without pain while laying in the bed. No saddle numbness, no urinary retention or incontinence, no focal motor deficit, no sensory deficit. no recent fever. no cough. no shortness of breath. no chest pain. no abdominal pain. no nausea or vomiting. no dysuria. no altered mental status. no edema. Review of Systems Narrative: Constitutional symptoms: Negative except as documented in HPI. Skin symptoms: Negative except as documented in HPI. Eye symptoms: Negative except as documented in HPI. ENMT symptoms: Negative except as documented in HPI. Respiratory symptoms: Negative except as documented in HPI. Cardiovascular symptoms: Negative except as documented in HPI. Gastrointestinal symptoms: Negative except as documented in HPI. Genitourinary symptoms: Negative except as documented in HPI. Musculoskeletal symptoms: Negative except as documented in HPI. Neurologic symptoms: Negative except as documented in HPI. Psychiatric symptoms: Negative except as documented in HPI. Endocrine symptoms: Negative except as documented in HPI. [facility] ED PFSH: Medical History Hypertension Smoker unmotivated to quit Panic attacks Hyperlipidemia Depression Anxiety Surgical History 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 History of colonoscopy 2018 History of facial surgery S/P cholecystectomy Social History Smoking and tobacco/nicotine status: current every day tobacco/nicotine user cigarettes Packs smoked per day: 1 Years cigarettes smoked: 23 Alcohol intake: never Substance/Drug Use: never Physical Exam Narrative: EXAM NARRATIVE: General: Alert, no acute distress. Skin: warm and dry Head: Normocephalic Neck: Trachea midline Eye: Extraocular movements are intact. Ears, nose, mouth and throat: Oral mucosa moist Respiratory: Respirations are non-labored Musculoskeletal: Normal ROM Neurological: Alert and oriented, No focal neurological deficit observed. Psychiatric: Cooperative, appropriate mood & affect. Course Vital Signs: Vital signs: Vital Signs Temperature 97.8 F 11/12/23 12:05 Pulse Rate 90 11/12/23 12:05 Respiratory Rate 18 11/12/23 12:05 Blood Pressure 158/105 11/12/23 12:05 Pulse Oximetry 93 11/12/23 12:05 Oxygen Delivery Me thod Room Air 11/12/23 12:05 MDM - Fall Medical Decision Making Medical decision making: Differential diagnosis including but not limited to and based on the above HPI, review of systems and physical exam: CT of the pelvis is ordered to rule out a occult fracture of the pelvis or hip that might not have been seen on plain films. I reviewed the patient's medical record. Reexamination: Patient says she feels much better and wants to go home after receiving a Goodview. No increased work of breathing. No focal motor deficits. Assessment and plan: Hip pain -P.o. Goodview and Zofran in the emergency room. - Discharged home - Discussed plan with patient. Answered any questions. - Evaluation and treatment of this problem were appropriate in the emergency setting. Lab Data Radiology Impressions Pelvis CT 11/12/23 12:07 IMPRESSION: 1. Status post left total hip replacement. Hardware appears intact without obvious complication. 2. There are osteoarthritic changes across the right hip joint as described above. 3. Severe degenerative changes are present in the visualized lower lumbar spine. 4. 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 Grade 1 anterolisthesis of L4 on L5 with resultant bilateral neural foraminal narrowing. 5. Lower lumbar broad-based disc osteophyte complexes. All radiology interpretation(s) finalized by discharge Discharge Plan Discharge Patient Disposition: Home Clinical Impression: Hip injury Qualifiers: Encounter type: subsequent encounter Laterality: right Qualified Code(s): S79.911D - Unspecified injury of right hip, subsequent encounter Condition: Stable Prescriptions: New hydrocodone-acetaminophen 5-325 mg tablet 1 tab PO Q6H PRN (Reason: pain) Qty: 20 0RF dexamethasone 6 mg tablet 6 mg PO DAILY 5 Days Qty: 5 0RF Miralax 17 gram/dose powder 17 g PO DAILY Qty: 510 0RF Rx Instructions: Take 1 scoop daily while taking pain medications. No Action dicyclomine 20 mg tablet 20 mg PO TID gemfibrozil 600 mg tablet 600 mg PO BID galantamine 4 mg tablet 4 mg PO BID Qty: 180 3RF Rx Instructions: administer with AM and PM meals tizanidine 4 mg tablet 4 mg PO TID PRN (Reason: Muscle Pain) Rx Instructions: PT STATES SHE TAKES 8MG IN THE AM AND 4 MG AT BEDTIME simvastatin 10 mg tablet 10 mg PO BEDTIME venlafaxine 150 mg capsule,extended release 24hr 150 mg PO DAILY aspirin [Aspir-81] 81 mg Tablet,Delayed Release (Dr/Ec) 81 mg PO DAILY meclizine 25 mg tablet 25 mg PO TID PRN (Reason: Dizziness) lisinopril 40 mg tablet 40 mg PO DAILY diazepam 5 mg tablet 5 mg PO BID PRN (Reason: UNKNOWN) azelastine 0.15 % (205.5 mcg) spray,non-aerosol 2 spray INTRANASAL BID PRN (Reason: Nasal Congestion) Coricidin HBP Cold and Flu See Rx Instructions .ROUTE .COMPLEX Rx Instructions: PRN ondansetron HCl 4 mg Tablet 4 mg PO Q4-5H PRN (Reason: Nausea) albuterol sulfate 90 mcg/actuation Hfa Aerosol Inhaler 2 puff INHALATION Q4-5H PRN (Reason: Wheezing) Zyrtec 10 mg Capsule 10 mg PO DAILY amlodipine 10 mg Tablet 10 mg PO DAILY Qty: 30 0RF Discharge Orders: Discharge ED (Routine); Ordered 11/12/23 Ordered By: Nilam Baum Referrals: Cornelius Pepper DO [Primary Care Provider] - 1-3 days Discharge Diet: Usual diet Discharge Activity: Increase activity as tolerated Patient Instructions: Opioid Safety, Pain Management Activity Restrictions/Additional Instructions: Thank you for choosing [facility] for your healthcare needs today. Please realize this is an emergency room and that we are providing you with a medical screening exam and this may not be complete and all inclusive of all the testing and or work up that you may need to determine your ailment or severity of your illness. You have been screened and evaluated and felt safe for discharge. Health conditions do change or evolve sometimes and as such it is important that you follow up with your Primary Doctor to be re checked, 3-5 days is a general good time frame for follow up. You are always welcome to return to the ED for re assessment if your symptoms are worsening or you have new concerns Coding Level of Care Code ED Med Specialist for José Padgett
[2023-11-12] MEDS: ondansetron 4 MG Tablet PO (13:06)
[2023-11-12] MEDS: HYDROcodone-acetaminophen 10-325 mg Tablet 1 TAB PO (13:06)
[2023-11-12 15:04] VITALS: BP 146/97; PULSE 81; RESP 16; TEMP 36.6; O2SAT 95
== END 2023-11-12 14:50 | disposition home or self-care (01) ==
PROVIDERS: Emergency Provider Emergency Medicine; PCP Internal Medicine
DX: S79.911A Unspecified injury of right hip, initial encounter (principal); Z79.82 Long term (current) use of aspirin; Z96.642 Presence of left artificial hip joint; I10 Essential (primary) hypertension; E78.5 Hyperlipidemia, unspecified; F17.210 Nicotine dependence, cigarettes, uncomplicated; W19.XXXA Unspecified fall, initial encounter
CPT/HCPCS: 72192; 99284; Q0162

== ENCOUNTER 2023-12-01 17:18 | Emergency (ER) | payer MEDICARE, MEDICAID, SELFPAY ==
[2023-12-01 17:17] VITALS: BP 140/70; PULSE 85; RESP 25; TEMP 36.6; O2SAT 97; BMI 31.2
--- NOTE | 2023-12-01 17:23 | XRR_ITS ---
PROCEDURE INFORMATION: Exam: XR Chest Exam date and time: 12/01/2023 6:03 PM Age: 73 years old Clinical indication: Dyspnea; Additional info: SOB, vomiting x 5 days TECHNIQUE: Imaging protocol: Radiologic exam of the chest. Views: 1 view. COMPARISON: CT angio neck [id number] 03/02/2023 3:42 PM FINDINGS: Lungs: No focal consolidation. Pleural spaces: No evidence of pneumothorax. No evidence of pleural effusion. Heart/Mediastinum: Cardiomediastinal silhouette is within normal limits. Bones/joints: No evidence of acute osseous abnormality. XR/XR chest 1V portable [id number] IMPRESSION: 1. No acute cardiopulmonary abnormality.
--- NOTE | 2023-12-01 17:33 | ECG_ITS ---
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 Measurements Intervals [place] Rate: 91 P: 60 OR: 148 QRS: 39 QRSD: 98 T: 47 QT: 392 QTc: 483 Interpretive Statements SINUS RHYTHM WITH FREQUENT VENTRICULAR PREMATURE COMPLEXES MODERATE ST DEPRESSION [0.05+ mV ST DEPRESSION] Compared to ECG 11/18/2021 10:15:55 Ventricular premature complex(es) now present ST (T wave) deviation now present Short OR interval no longer present T-wave abnormality no longer present Electronically Signed On 12-01-2023 20:21:56 CDT by Lance Sung M.D. [email or web address]
--- NOTE | 2023-12-01 17:33 | ED_ITS ---
Documented by User: MAKAYLA Curiel 12/01/23 17:39 HPI - Nausea/Vomiting/Diarrhea 2 General: Chief complaint: Nausea/Vomiting/Diarrhea Stated complaint: n/v x5 days Time Seen by Provider: 12/01/23 18:57 Source: patient and EMS Mode of arrival: EMS Limitations: no limitations History of Present Illness: Patient is a 73-year-old female presenting to the emergency department complaining of nausea and vomiting for the past 5 days. Patient was brought in by EMS, reportedly patient had family member call due to worsening of her symptoms. States she has had 2 many episodes of vomiting to count, no blood in her vomit. Has not been able to keep down food or drink. Also is now noting some lower abdominal pain. She does have a history of gallbladder removal. Has only taken Pepto for symptoms, nothing else has been tried. She does not report to me any pertinent past medical history otherwise. Patient does note that she has been running fevers over the past couple of days, is currently afebrile on arrival. EMS did give 4 mg of Zofran as well as started her on a liter of fluids. She is noting some shortness of breath, no history of COPD or asthma. She is denying chest pain, palpitations, diarrhea, or other symptoms. She does note that she has not had normal bowel movement over the past 3-4 days as well. MD elicited complaint: nausea, vomiting and abdominal pain Onset (ago): day(s) Associated nausea: Yes Associated abdominal pain: Yes Location of pain: RLQ and LLQ Severity: moderate Associated symtoms: Reports nausea; Denies chest pain, diaphoresis, dizziness, dysuria, headache(s) or palpitations Treatment prior to arrival: other (Pepto) Review of Systems 2 General: Reports: 10 or more systems reviewed and unremarkable except in HPI and below Const: Reports: fever(s) and change in appetite; Denies: chills, change in weight or diaphoresis ENMT: Denies: throat pain or hoarseness Card: Denies: chest pain, palpitations or lightheadedness Resp: Reports: dyspnea; Denies: productive cough or wheezing GI: Reports: abdominal pain, nausea, vomiting and change in bowel habits; Denies: hematemesis, coffee ground emesis or diarrhea : Denies: flank pain, difficulty voiding, dysuria, urinary frequency or urinary urgency Musc: Denies: neck pain or back pain Skin/Breast: Denies: rash or new lesions Neuro: Denies: headache(s) or dizziness PFSH ED 2 PFSH: Medical History Hypertension Smoker unmotivated to quit Panic attacks Hyperlipidemia Depression Anxiety Surgical History 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 History of colonoscopy 2018 History of facial surgery S/P cholecystectomy Social History Smoking and tobacco/nicotine status: current every day tobacco/nicotine user cigarettes Packs smoked per day: 1 Years cigarettes smoked: 23 Alcohol intake: never Substance/Drug Use: never Physical Exam 2 Const: COMMON NORMALS: patient oriented x3, no limitations, alert and well nourished GENERAL APPEARANCE: cooperative, anxious, disheveled and diaphoretic NUTRITIONAL APPEARANCE: obese ORIENTATION/CONSCIOUSNESS: Yes awake HENMT: COMMON NORMALS: normocephalic, atraumatic, hearing grossly normal bilaterally, external ears normal, Normal external nose present, Normal nasal mucous membranes and turbinates present and moist oral mucous membranes HEAD & SCALP: normocephalic and atraumatic NOSE: Normal external nose present and Normal nasal mucous membranes and turbinates present EXTERNAL EAR: Yes external ears normal Eye: COMMON NORMALS: Equal, round and reactive pupils present, EOMs intact bilaterally, conjunctivae normal and normal visual zarate by confrontation C ONJUNCTIVA: Yes conjunctivae normal PUPIL: Yes Equal, round and reactive pupils present Neck/C-Spine: COMMON NORMALS: full ROM, supple, no meningeal signs and no JVD Chest: COMMONS NORMALS: normal inspection of the chest and normal palpation of entire chest wall Resp: COMMON NORMALS: normal respiratory effort, No retractions, No use of accessory muscles and clear to auscultation bilaterally AUSCULTATION: clear to auscultation bilaterally, no crackles, no rales, no rhonchi and no wheezes Cardio: COMMON NORMALS: no JVD, regular rate, regular rhythm, S1 normal heart sound present, S2 normal heart sound present, No gallops present (Cardio), No clicks present (Cardio), No murmurs present (Cardio), No rub (Cardio) and Peripheral pulses 2+ throughout RATE: regular rate RHYTHM: regular rhythm HEART SOUNDS: S1 normal heart sound present and S2 normal heart sound present PERIPHERAL PULSES: Peripheral pulses 2+ throughout GI: COMMON NORMALS: Normal to inspection, nondistended, normoactive bowel sounds present, Soft to palpation, No hepatosplenomegaly present and no masses INSPECTION: Yes central obesity AUSCULTATION: Yes normoactive bowel sounds PALPATION: Yes Soft to palpation, Yes Tenderness to palpation present (GI) (Mild right lower quadrant tenderness to palpation), No Guarding due to palpation present (GI), No Rigid due to palpation and Yes No hepatosplenomegaly present RECTAL EXAM: deferred Extremity: COMMON NORMALS: normal to inspection and full ROM Neuro: COMMON NORMALS: patient oriented x3, moves all extremities, no focal motor deficits and no sensory deficits noted SENSORIUM/ORIENTATION: Yes alert MENINGEAL SIGNS: Yes no meningeal signs Psych: COMMON NORMALS: mental status grossly normal, cooperative and speech normal SPEECH: Yes normal speech Skin: COMMON NORMALS: no rashes or lesions noted GENERAL SKIN EXAM: no rashes or lesions noted Course 2 Vital Signs: Vital signs: Vital Signs Temperature 97.9 F 12/01/23 21:43 Pulse Rate 91 12/01/23 21:43 Respiratory Rate 16 12/01/23 21:43 Blood Pressure 123/60 12/01/23 21:43 Pulse Oximetry 94 12/01/23 21:43 Oxygen Delivery Me thod Room Air 12/01/23 21:12 MDM - Nausea/Vomiting/Diarrhea Lab Data 12/01/23 17:04 12/01/23 17:04 Radiology Impressions Chest X-Ray 12/01/23 17:23 IMPRESSION: 1. No acute cardiopulmonary abnormality. Abdomen/Pelvis CT 12/01/23 17:39 IMPRESSION: 1. Inflamed duodenum compatible with duodenitis versus pancreatitis involving the pancreaticoduodenal groove. Correlation with serum lipase is recommended. 2. Atherosclerosis with moderate-severe narrowing of the origin of the celiac trunk and left renal artery. Follow-up outpatient vascular evaluation is recommended. Laboratory Results WBC 15.83 10^3/uL (3.29-11.43) H 12/01/23 17:04 RBC 4.50 10^6/uL (3.85-5.65) 12/01/23 17:04 Hgb 13.60 g/dL (11.27-16.99) 12/01/23 17:04 Hct 39.3 % (36-47) 12/01/23 17:04 MCV 87.3 fl (85-98) 12/01/23 17:04 MCH 30.2 pg (27-33) 12/01/23 17:04 MCHC 34.6 g/dL (30-55) 12/01/23 17:04 RDW 13.5 % (12.1-15.1) 12/01/23 17:04 Plt Count 452 10^3/cmm (157-399) H 12/01/23 17:04 MPV 9.2 fL (7.4-10.4) 12/01/23 17:04 Neut % (Auto) 64.4 % 12/01/23 17:04 Lymph % (Auto) 26.7 % 12/01/23 17:04 [place] % (Auto) 7.0 % 12/01/23 17:04 Eos % (Auto) 1.1 % 12/01/23 17:04 Baso % (Auto) 0.4 % 12/01/23 17:04 Neut # (Auto) 10.18 10^3/uL (1.8-7.7) H 12/01/23 17:04 Lymph # (Auto) 4.2 10^3/uL (0.8-4.8) 12/01/23 17:04 [place] # (Auto) 1.1 10^3/uL (0.2-0.9) H 12/01/23 17:04 Eos # (Auto) 0.2 10^3/uL (0.0-0.8) 12/01/23 17:04 Baso # (Auto) 0.1 10^3/uL (0.0-0.1) 12/01/23 17:04 Nucleated RBC % (auto) 0 % 12/01/23 17:04 Nucleated RBCs # 0.0 /100WBC 12/01/23 17:04 Sodium 138 mmol/L (136-145) 12/01/23 17:04 Potassium 3.6 mmol/L (3.5-5.1) 12/01/23 17:04 Chloride 102 mmol/L (98-107) 12/01/23 17:04 Carbon Dioxide 19 mmol/L (22-29) L 12/01/23 17:04 Anion Gap 20.6 (5-19) H 12/01/23 17:04 BUN 27 mg/dL (8-23) H 12/01/23 17:04 Creatinine 0.9 mg/dL (0.5-0.9) 12/01/23 17:04 GFR Calculation Not Reportable 12/01/23 17:04 Glucose 124 mg/dL (65-115) H 12/01/23 17:04 Calculated Osmolality 293 mOsm/kg (285-295) 12/01/23 17:04 Lactic Acid 1.6 mmol/L (0.5-2.2) 12/01/23 17:46 Calcium 10.0 mg/dL (8.5-10.5) 12/01/23 17:04 Total Bilirubin 0.2 mg/dL (0.15-1.2) 12/01/23 17:04 AST 56 U/L (0-32) H 12/01/23 17:04 ALT 44 U/L (0-33) H 12/01/23 17:04 Alkaline Phosphatase 84 U/L (35-105) 12/01/23 17:04 Total Protein 6.9 g/dL (6.6-8.7) 12/01/23 17:04 Albumin 4.2 g/dL (3.5-5.2) 12/01/23 17:04 Globulin 2.7 g/dL (1.3-4.6) 12/01/23 17:04 Lipase 28 U/L (13-60) 12/01/23 17:04 Urine Color Yellow (Yellow) 12/01/23 19:20 Urine Appearance Clear (CLEAR) 12/01/23 19:20 Urine pH 6.5 (5-7) 12/01/23 19:20 Ur Specific [place] 1.005 (1.005-1.030) 12/01/23 19:20 Urine Protein 1+ (Negative) H 12/01/23 19:20 Urine Glucose (UA) Norm (Normal) 12/01/23 19:20 Urine Ketones 1+ (Negative) H 12/01/23 19:20 Urine Blood 2+ (Negative) H 12/01/23 19:20 Urine Nitrate Positive (Negative) A 12/01/23 19:20 Urine Bilirubin 1+ (Negative) H 12/01/23 19:20 Urine Urobilinogen Neg mg/dL (Negative) 12/01/23 19:20 Ur Leukocyte Esterase Trace (Negative) H 12/01/23 19:20 Urine RBC 5-10 /hpf (0-2) H 12/01/23 19:20 Urine WBC 0-4 /hpf (0-5) H 12/01/23 19:20 Ur Squamous Epith Cells 0-4 /hpf (0-5) H 12/01/23 19:20 Amorphous Sediment Not Reportable 12/01/23 19:20 Urine Bacteria 1+ /hpf (NONE) H 12/01/23 19:20 Discharge Plan Discharge Patient Disposition: Home Clinical Impression: Duodenitis Condition: Stable Prescriptions: New Carafate 1 gram tablet 1 g PO TID 14 Days Qty: 42 0RF Protonix 40 mg tablet,delayed release (DR/EC) 40 mg PO DAILY 28 Days Qty: 28 0RF cephalexin 500 mg capsule 500 mg PO Q6H 7 Days Qty: 28 0RF No Action dicyclomine 20 mg tablet 20 mg PO TID gemfibrozil 600 mg tablet 600 mg PO BID galantamine 4 mg tablet 4 mg PO BID Qty: 180 3RF Rx Instructions: administer with AM and PM meals tizanidine 4 mg tablet 4 mg PO TID PRN (Reason: Muscle Pain) Rx Instructions: PT STATES SHE TAKES 8MG IN THE AM AND 4 MG AT BEDTIME simvastatin 10 mg tablet 10 mg PO BEDTIME venlafaxine 150 mg capsule,extended release 24hr 150 mg PO DAILY aspirin [Aspir-81] 81 mg Tablet,Delayed Release (Dr/Ec) 81 mg PO DAILY meclizine 25 mg tablet 25 mg PO TID PRN (Reason: Dizziness) lisinopril 40 mg tablet 40 mg PO DAILY diazepam 5 mg tablet 5 mg PO BID PRN (Reason: UNKNOWN) azelastine 0.15 % (205.5 mcg) spray,non-aerosol 2 spray INTRANASAL BID PRN (Reason: Nasal Congestion) Coricidin HBP Cold and Flu See Rx Instructions .ROUTE .COMPLEX Rx Instructions: PRN ondansetron HCl 4 mg Tablet 4 mg PO Q4-5H PRN (Reason: Nausea) albuterol sulfate 90 mcg/actuation Hfa Aerosol Inhaler 2 puff INHALATION Q4-5H PRN (Reason: Wheezing) Zyrtec 10 mg Capsule 10 mg PO DAILY amlodipine 10 mg Tablet 10 mg PO DAILY Qty: 30 0RF hydrocodone-acetaminophen 5-325 mg tablet 1 tab PO Q6H PRN (Reason: pain) Qty: 20 0RF Miralax 17 gram/dose powder 17 g PO DAILY Qty: 510 0RF Rx Instructions: Take 1 scoop daily while taking pain medications. Discharge Orders: Discharge ED (Routine); Ordered 12/01/23 Ordered By: Nika Busby Referrals: Cornelius Pepper DO [Primary Care Provider] - Patient Instructions: Duodenitis (ED) Activity Restrictions/Additional Instructions: Start taking your prescribed medications. I would like you to do a bland diet over the next 3 to 4 days and slowly advance as tolerated. I would avoid spicy, salty, acidic foods. I would like you to follow-up with your primary care provider next week. You may return to the emergency department for worsening abdominal pain, fevers, vomiting blood, dark or tarry stools, generally feeling worse or unwell, or any other concerns you may have. Sign Out Sign Out Data: Patient Sign Out occurred on 12/01/23 at 18:57. Patient's care was discussed, and care was transferred from MAKAYLA Curiel to MAKAYLA Littlejohn. Coding Level of Care Code ED Milk Receiver Tank Truck for Chg Fwd Documented by User: MAKAYLA Littlejohn 12/01/23 22:07 HPI - Nausea/Vomiting/Diarrhea 2 General: Chief complaint: Nausea/Vomiting/Diarrhea Stated complaint: n/v x5 days Time Seen by Provider: 12/01/23 18:57 PFSH ED 2 PFSH: Medical History Hypertension Smoker unmotivated to quit Panic attacks Hyperlipidemia Depression Anxiety Surgical History 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 History of colonoscopy 2018 History of facial surgery S/P cholecystectomy Social History Smoking and tobacco/nicotine status: current every day tobacco/nicotine user cigarettes Packs smoked per day: 1 Years cigarettes smoked: 23 Alcohol intake: never Substance/Drug Use: never Course 2 Vital Signs: Vital signs: Vital Signs Temperature 97.9 F 12/01/23 21:43 Pulse Rate 91 12/01/23 21:43 Respiratory Rate 16 12/01/23 21:43 Blood Pressure 123/60 12/01/23 21:43 Pulse Oximetry 94 12/01/23 21:43 Oxygen Delivery Me thod Room Air 12/01/23 21:12 MDM - Nausea/Vomiting/Diarrhea Medical Decision Making Patient here for abdominal pain, nausea, vomiting. She arrives with stable vital signs. Blood work at this time is overall nonactionable. She does have a little bit of a white count of 15.8. Minor elevations to her AST/ALT that are unchanged from a few months ago. T. bili is normal. Lipase is normal. She is not complaining of urinary symptoms however UA slightly suspicious for UTI with 2+ blood and positive nitrates. I assumed care from Perry Meza PA-C pending CT scan. Scan is compatible with a duodenitis. They did question pancreatitis with recommendation of clinical correlation with her serum lipase which is normal. Will go ahead and place her on Carafate/PPI to see if this could potentially help. Will culture urine and place her on Keflex. I want her to see primary care early next week for follow-up. Return to ED precautions given. Medical Records I reviewed the patient's medical records. Lab Data I reviewed the patient's lab results. 12/01/23 17:04 12/01/23 17:04 Radiology Impressions Chest X-Ray 12/01/23 17:23 IMPRESSION: 1. No acute cardiopulmonary abnormality. Abdomen/Pelvis CT 12/01/23 17:39 IMPRESSION: 1. Inflamed duodenum compatible with duodenitis versus pancreatitis involving the pancreaticoduodenal groove. Correlation with serum lipase is recommended. 2. Atherosclerosis with moderate-severe narrowing of the origin of the celiac trunk and left renal artery. Follow-up outpatient vascular evaluation is recommended. Laboratory Results WBC 15.83 10^3/uL (3.29-11.43) H 12/01/23 17:04 RBC 4.50 10^6/uL (3.85-5.65) 12/01/23 17:04 Hgb 13.60 g/dL (11.27-16.99) 12/01/23 17:04 Hct 39.3 % (36-47) 12/01/23 17:04 MCV 87.3 fl (85-98) 12/01/23 17:04 MCH 30.2 pg (27-33) 12/01/23 17:04 MCHC 34.6 g/dL (30-55) 12/01/23 17:04 RDW 13.5 % (12.1-15.1) 12/01/23 17:04 Plt Count 452 10^3/cmm (157-399) H 12/01/23 17:04 MPV 9.2 fL (7.4-10.4) 12/01/23 17:04 Neut % (Auto) 64.4 % 12/01/23 17:04 Lymph % (Auto) 26.7 % 12/01/23 17:04 [place] % (Auto) 7.0 % 12/01/23 17:04 Eos % (Auto) 1.1 % 12/01/23 17:04 Baso % (Auto) 0.4 % 12/01/23 17:04 Neut # (Auto) 10.18 10^3/uL (1.8-7.7) H 12/01/23 17:04 Lymph # (Auto) 4.2 10^3/uL (0.8-4.8) 12/01/23 17:04 [place] # (Auto) 1.1 10^3/uL (0.2-0.9) H 12/01/23 17:04 Eos # (Auto) 0.2 10^3/uL (0.0-0.8) 12/01/23 17:04 Baso # (Auto) 0.1 10^3/uL (0.0-0.1) 12/01/23 17:04 Nucleated RBC % (auto) 0 % 12/01/23 17:04 Nucleated RBCs # 0.0 /100WBC 12/01/23 17:04 Sodium 138 mmol/L (136-145) 12/01/23 17:04 Potassium 3.6 mmol/L (3.5-5.1) 12/01/23 17:04 Chloride 102 mmol/L (98-107) 12/01/23 17:04 Carbon Dioxide 19 mmol/L (22-29) L 12/01/23 17:04 Anion Gap 20.6 (5-19) H 12/01/23 17:04 BUN 27 mg/dL (8-23) H 12/01/23 17:04 Creatinine 0.9 mg/dL (0.5-0.9) 12/01/23 17:04 GFR Calculation Not Reportable 12/01/23 17:04 Glucose 124 mg/dL (65-115) H 12/01/23 17:04 Calculated Osmolality 293 mOsm/kg (285-295) 12/01/23 17:04 Lactic Acid 1.6 mmol/L (0.5-2.2) 12/01/23 17:46 Calcium 10.0 mg/dL (8.5-10.5) 12/01/23 17:04 Total Bilirubin 0.2 mg/dL (0.15-1.2) 12/01/23 17:04 AST 56 U/L (0-32) H 12/01/23 17:04 ALT 44 U/L (0-33) H 12/01/23 17:04 Alkaline Phosphatase 84 U/L (35-105) 12/01/23 17:04 Total Protein 6.9 g/dL (6.6-8.7) 12/01/23 17:04 Albumin 4.2 g/dL (3.5-5.2) 12/01/23 17:04 Globulin 2.7 g/dL (1.3-4.6) 12/01/23 17:04 Lipase 28 U/L (13-60) 12/01/23 17:04 Urine Color Yellow (Yellow) 12/01/23 19:20 Urine Appearance Clear (CLEAR) 12/01/23 19:20 Urine pH 6.5 (5-7) 12/01/23 19:20 Ur Specific [place] 1.005 (1.005-1.030) 12/01/23 19:20 Urine Protein 1+ (Negative) H 12/01/23 19:20 Urine Glucose (UA) Norm (Normal) 12/01/23 19:20 Urine Ketones 1+ (Negative) H 12/01/23 19:20 Urine Blood 2+ (Negative) H 12/01/23 19:20 Urine Nitrate Positive (Negative) A 12/01/23 19:20 Urine Bilirubin 1+ (Negative) H 12/01/23 19:20 Urine Urobilinogen Neg mg/dL (Negative) 12/01/23 19:20 Ur Leukocyte Esterase Trace (Negative) H 12/01/23 19:20 Urine RBC 5-10 /hpf (0-2) H 12/01/23 19:20 Urine WBC 0-4 /hpf (0-5) H 12/01/23 19:20 Ur Squamous Epith Cells 0-4 /hpf (0-5) H 12/01/23 19:20 Amorphous Sediment Not Reportable 12/01/23 19:20 Urine Bacteria 1+ /hpf (NONE) H 12/01/23 19:20 All radiology interpretation(s) finalized by discharge Discharge Plan Discharge Patient Disposition: Home Clinical Impression: Duodenitis Condition: Stable Prescriptions: New Carafate 1 gram tablet 1 g PO TID 14 Days Qty: 42 0RF Protonix 40 mg tablet,delayed release (DR/EC) 40 mg PO DAILY 28 Days Qty: 28 0RF cephalexin 500 mg capsule 500 mg PO Q6H 7 Days Qty: 28 0RF No Action dicyclomine 20 mg tablet 20 mg PO TID gemfibrozil 600 mg tablet 600 mg PO BID galantamine 4 mg tablet 4 mg PO BID Qty: 180 3RF Rx Instructions: administer with AM and PM meals tizanidine 4 mg tablet 4 mg PO TID PRN (Reason: Muscle Pain) Rx Instructions: PT STATES SHE TAKES 8MG IN THE AM AND 4 MG AT BEDTIME simvastatin 10 mg tablet 10 mg PO BEDTIME venlafaxine 150 mg capsule,extended release 24hr 150 mg PO DAILY aspirin [Aspir-81] 81 mg Tablet,Delayed Release (Dr/Ec) 81 mg PO DAILY meclizine 25 mg tablet 25 mg PO TID PRN (Reason: Dizziness) lisinopril 40 mg tablet 40 mg PO DAILY diazepam 5 mg tablet 5 mg PO BID PRN (Reason: UNKNOWN) azelastine 0.15 % (205.5 mcg) spray,non-aerosol 2 spray INTRANASAL BID PRN (Reason: Nasal Congestion) Coricidin HBP Cold and Flu See Rx Instructions .ROUTE .COMPLEX Rx Instructions: PRN ondansetron HCl 4 mg Tablet 4 mg PO Q4-5H PRN (Reason: Nausea) albuterol sulfate 90 mcg/actuation Hfa Aerosol Inhaler 2 puff INHALATION Q4-5H PRN (Reason: Wheezing) Zyrtec 10 mg Capsule 10 mg PO DAILY amlodipine 10 mg Tablet 10 mg PO DAILY Qty: 30 0RF hydrocodone-acetaminophen 5-325 mg tablet 1 tab PO Q6H PRN (Reason: pain) Qty: 20 0RF Miralax 17 gram/dose powder 17 g PO DAILY Qty: 510 0RF Rx Instructions: Take 1 scoop daily while taking pain medications. Discharge Orders: Discharge ED (Routine); Ordered 12/01/23 Ordered By: Nika Busby Referrals: Cornelius Pepper DO [Primary Care Provider] - Patient Instructions: Duodenitis (ED) Activity Restrictions/Additional Instructions: Start taking your prescribed medications. I would like you to do a bland diet over the next 3 to 4 days and slowly advance as tolerated. I would avoid spicy, salty, acidic foods. I would like you to follow-up with your primary care provider next week. You may return to the emergency department for worsening abdominal pain, fevers, vomiting blood, dark or tarry stools, generally feeling worse or unwell, or any other concerns you may have. Sign Out Sign Out Data: Patient Sign Out occurred on 12/01/23 at 18:57. Patient's care was discussed, and care was transferred from MAKAYLA Curiel to MAKAYLA Littlejohn. Coding Level of Care Code ED Milk Receiver Tank Truck for José Padgett
[2023-12-01] MEDS: ondansetron 2 mg/ML SDV 2 mL 4 MG IVP (17:35)
[2023-12-01 17:36] LABS: Basophils # 0.1 10^3/uL (0.0-0.1); Basophils % 0.4 %; Eosinophils # 0.2 10^3/uL (0.0-0.8); Eosinophils % 1.1 %; Hematocrit 39.3 % (36-47); Lymphocytes # 4.2 10^3/uL (0.8-4.8); Lymphocytes % 26.7 %; Mean Corpuscular HGB Conc 34.6 g/dL (30-55); Mean Corpuscular Hemoglobin 30.2 pg (27-33); Mean Corpuscular Volume 87.3 fl (85-98); Mean Platelet Volume 9.2 fL (7.4-10.4); Monocytes # 1.1 10^3/uL (0.2-0.9); Neutrophils # 10.18 10^3/uL (1.8-7.7); Neutrophils % 64.4 %; Nucleated Red Blood Cells % 0 %; Platelet Count 452 10^3/cmm (157-399); Red Cell Distribution Width 13.5 % (12.1-15.1); White Blood Count 15.83 10^3/uL (3.29-11.43)
--- NOTE | 2023-12-01 17:39 | CTR_ITS ---
PROCEDURE INFORMATION: Exam: CT Abdomen And Pelvis With Contrast Exam date and time: 12/01/2023 6:15 PM Age: 73 years old Clinical indication: Vomiting; Additional info: Abdominal pain, nausea and vomiting for 5 days TECHNIQUE: Imaging protocol: Computed tomography of the abdomen and pelvis with contrast. Radiation optimization: All CT scans at this facility use at least one of these dose optimization techniques: automated exposure control; mA and/or kV adjustment per patient size (includes targeted exams where dose is matched to clinical indication); or iterative reconstruction. Contrast material: OMNI 350; Contrast volume: 100 ml; Contrast route: INTRAVENOUS (IV); COMPARISON: CT pelvis wo con [id number] 11/12/2023 12:33 PM RADIATION DOSE METRICS: Total DLP (mGy-cm): 96881 FINDINGS: Lungs: Subsegmental bibasilar atelectasis. The visualized lung bases are otherwise grossly clear. Diaphragm: No evidence of diaphragmatic defect. Liver: Hepatic steatosis. No evidence of focal hepatic lesion. Hepatic cysts noted. Gallbladder and biliary ducts: Status post cholecystectomy. No evidence of intrahepatic or extrahepatic biliary dilatation. Pancreas: There is edema/inflammation in the pancreaticoduodenal groove. Otherwise grossly unremarkable. Spleen: Unremarkable. Adrenal glands: Unremarkable. Kidneys and ureters: Small nonobstructive renal stones bilaterally measuring up to 4 mm. Otherwise no renal parenchymal abnormality. No hydronephrosis or ureteral stone. Stomach and bowel: There is wall thickening and perienteric inflammatory changes of the proximal duodenum compatible with duodenitis. Secondary inflammation from pancreatitis involving the pancreaticoduodenal groove would be difficult to exclude in the proper clinical setting.Colonic diverticulosis without evidence of acute diverticulitis. Appendix: Normal appendix. Intraperitoneal space: No evidence of free air or fluid collection. Vasculature: Extensive aortobiiliac atherosclerosis without aneurysmal dilatation or dissection. The celiac trunk, SMA and MANISH are grossly patent. Moderate-severe narrowing of the origins of the celiac trunk and left renal artery secondary to atherosclerotic plaque. No evidence of IVC thrombus. The portal vein, SMV and splenic veins are grossly patent. Lymph nodes: No adenopathy. Urinary bladder: Grossly unremarkable. Reproductive: Grossly unremarkable. Bones/joints: No evidence of acute fracture or aggressive osseous lesion. Moderate-severe multilevel spondylosis of the lumbar spine with facet arthrosis, osteophytosis and endplate degeneration. Grade 1 anterolisthesis of L4 on L5 secondary to severe facet arthrosis. Total left hip arthroplasty. Soft tissues: No evidence of fluid collection or hematoma in the superficial soft tissues. CT/CT abdomen pelvis w con* [id number] IMPRESSION: 1. Inflamed duodenum compatible with duodenitis versus pancreatitis involving the pancreaticoduodenal groove. Correlation with serum lipase is recommended. 2. Atherosclerosis with moderate-severe narrowing of the origin of the celiac trunk and left renal artery. Follow-up outpatient vascular evaluation is recommended.
[2023-12-01 17:50] LABS: Alanine Aminotransferase 44 U/L (0-33); Albumin Level 4.2 g/dL (3.5-5.2); Alkaline Phosphatase 84 U/L (35-105); Anion Gap 20.6 (5-19); Aspartate Amino Transferase 56 U/L (0-32); Blood Urea Nitrogen 27 mg/dL (8-23); Carbon Dioxide 19 mmol/L (22-29); Chloride 102 mmol/L (98-107); Creatinine Clr Calc Pharmacy 56.1381; Globulin 2.7 g/dL (1.3-4.6); Glucose 124 mg/dL (65-115); Lipase 28 U/L (13-60); Osmolality Calculated 293 mOsm/kg (285-295); Potassium 3.6 mmol/L (3.5-5.1); Sodium 138 mmol/L (136-145); Total Bilirubin 0.2 mg/dL (0.15-1.2); Total Protein 6.9 g/dL (6.6-8.7)
[2023-12-01 18:11] LABS: Lactic Sepsis W/Reflex 1.6 mmol/L (0.5-2.2)
[2023-12-01] MEDS: iohexol 350 mg/mL 500 mL Btl (per mL) IV (18:25)
[2023-12-01 19:41] VITALS: BP 169/68; PULSE 88; RESP 16; O2SAT 96
[2023-12-01 19:47] LABS: Specific Gravity, Urine 1.005 (1.005-1.030); Urine Appearance Clear (CLEAR); Urine Color Yellow (Yellow); pH Urine 6.5 (5-7)
[2023-12-01 19:48] LABS: Add Urine Culture? Yes; Add Urine Microscopic? YES; Bacteria Urine 1+ /hpf; Bilirubin Urine 1+ (Negative); Blood Urine 2+ (Negative); Glucose Urine UA Norm (Normal); Ketones Urine 1+ (Negative); Leukocyte Esterase Urine Trace (Negative); Nitrate Urine Positive (Negative); Protein Urine 1+ (Negative); Squamous Epithelial Cell Urine 0-4 /hpf (0-5); Urobilinogen Urine Neg (Negative); WBC Urine 0-4 /hpf (0-5)
[2023-12-01] MEDS: morphine 4 mg/mL SDV 1 mL IVP (20:17)
[2023-12-01] MEDS: lidocaine 2% viscous 15 ML, aluminum-mag hydrox-simethicon 30 ML, sucralfate oral liq 1 GM PO (20:17)
[2023-12-01] MEDS: metoclopramide 5 mg/mL SDV 2 mL 10 MG IVP (21:11)
[2023-12-01 21:12] VITALS: BP 123/60; PULSE 91; RESP 16; O2SAT 94
[2023-12-01 21:43] VITALS: BP 123/60; PULSE 91; RESP 16; TEMP 36.6; O2SAT 94
== END 2023-12-01 21:44 | disposition home or self-care (01) ==
PROVIDERS: Physician Assistant; Emergency Provider Physician Assistant; PCP Internal Medicine
DX: K29.80 Duodenitis without bleeding (principal); Z79.82 Long term (current) use of aspirin; I10 Essential (primary) hypertension; E78.5 Hyperlipidemia, unspecified; Z86.73 Personal history of transient ischemic attack (TIA), and cerebral infarction without residual deficits; F17.210 Nicotine dependence, cigarettes, uncomplicated
CPT/HCPCS: 36415; 71045; 74177; 80053; 81001; 83605; 83690; 85025; 87086; 93005; 96374; 96375; 99285; J2270; J2405; J2765; Q9967

== ENCOUNTER 2025-01-04 13:11 | Outpatient (CLI) | payer MEDICARE, MEDICAID, SELFPAY ==
--- NOTE | 2025-01-04 13:19 | CT_ITS ---
WS: [id number] CT HEAD TECHNIQUE: Noncontrast and contrast-enhanced CT of the head stat. CLINICAL INFORMATION: NEW ONSET OF HEADACHES AFTER AGE 50 COMPARISON: 2020 DLP: 2107.[address] scans at [facility] use at least one of these dose optimization techniques: automated exposure control; mA and/or kV adjustment per patient size (includes targeted exams where dose is matched to clinical indication); or iterative reconstruction. FINDINGS: No evidence intracranial hemorrhage or mass effect. Ventricular system and basilar cisterns are patent. Vascular calcification. No abnormal intracranial enhancement. Moderate small vessel changes with moderate parenchymal volume loss. Chronic infarct with encephalomalacia in the posterior temporal lobe unchanged compared to previous. A few tiny chronic lacunar infarcts in the basal ganglia bilaterally. Small vessel changes have progressed. Paranasal sinuses and mastoid air cells are well aerated. Normal posterior nasopharynx. CT/CT head wo/w con [id number] IMPRESSION: 1. No evidence of intracranial hemorrhage or mass effect. 2. Chronic infarct in the LEFT posterior temporal lobe is unchanged. 3. Progressed moderate small vessel changes with moderate parenchymal volume l oss. 4. Dense vascular calcification. 5. A few tiny chronic lacunar infarcts in the basal ganglia. 6. No other suspicious findings.
[2025-01-04 13:40] LABS: Blood Urea Nitrogen 16 mg/dL (8-23)
== END 2025-01-04 13:12 | disposition home or self-care (01) ==
LOC: RAD 13:12
PROVIDERS: Radiology Diagnostic Radiology; PCP Internal Medicine; Visit Provider Family Medicine
DX: R51.9 Headache, unspecified (principal); Z86.73 Personal history of transient ischemic attack (TIA), and cerebral infarction without residual deficits
CPT/HCPCS: 70470; 82565; 84520

== ENCOUNTER 2025-04-23 13:48 | Outpatient (CLI) | payer MEDICARE, MEDICAID, SELFPAY ==
--- NOTE | 2025-04-23 14:00 | USCV_ITS ---
Sindhu Evans Age: 74 Gender: F : 1950 Exam Date: 04/23/2025 14:13 Ordering Phys: Jose Mcmanus MD Technologist: SILVESTRE Exam Location: [facility] – [place] Indication: SoB BP: 160 / 80 HR: 82 Rhythm: Sinus Technical Quality: Adequate MEASUREMENTS (Male / Female) Normal Values 2D ECHO LV Diastolic Diameter PLAX 5.1 cm 4.2 - 5.9 / 3.9 - 5.3 cm IVS Diastolic Thickness 0.8 cm 0.6 - 1.0 / 0.6 - 0.9 cm IVS Systolic Thickness 0.8 cm LVPW Diastolic Thickness 0.9 cm 0.6 - 1.0 / 0.6 - 0.9 cm LVPW Systolic Thickness 1.2 cm LVOT Diameter 2.1 cm LV Ejection Fraction 2D Teich 27.1 % LV Ejection Fraction MOD 4C 54.7 % LV Ejection Fraction MOD 2C 48.6 % LV Ejection Fraction 2C AL 51.0 % LA Diameter 2.9 cm RA Systolic Volume 4C AL 42.2 ml RA Systolic Volume 4C MOD 42.0 ml LA Sys Volume AL 36.1 cm cubed LA Sys Volume Index AL 17.5 cm cubed/m squared Aorta at Sinotubular Diameter 2.2 cm M-MODE LA Ao Ratio MM 1.6 AV Cusp Separation MM 1.2 cm DOPPLER AV Peak Velocity 154.0 cm/s LVOT Peak Velocity 106.0 cm/s AV Area Cont Eq vti 2.3 cm squared AV Area Cont Eq pk 2.3 cm squared MV Peak Velocity 135.0 cm/s MV Area PHT 6.7 cm squared Mitral E to A Ratio 0.5 TR Peak Velocity 107.0 cm/s TR Peak Gradient 4.6 mmHg TV Peak E Velocity 63.0 cm/s PV Peak Velocity 95.0 cm/s FINDINGS Left Ventricle Normal left ventricular size, systolic function and wall thickness, with no regional wall motion abnormalities. Left ventricular ejection fraction is estimated at 55-60 %. Right Ventricle Normal right ventricular size and systolic function. Right Atrium Normal right atrial size. Left Atrium Normal left atrial size. IA Septum Normal interatrial septum. Mitral Valve Moderately thickened mitral valve. Trace mitral valve regurgitation. Aortic Valve Thickened aortic valve. No aortic valve stenosis. Tricuspid Valve Structurally normal tricuspid valve. Trace tricuspid valve regurgitation. TVPG=8 mmHg. Normal right heart and pulmonary pressures. Pulmonic Valve Pulmonic valve not well visualized. Pericardium No pericardial effusion. Aorta Normal size aortic root and proximal ascending aorta. IVC Inferior vena cava not visualized. CONCLUSIONS Normal left ventricle size and normal LV systolic function. Estimated LVEF normal 55-60%. Normal RV size and RV systolic function. Moderately thickened mitral valve with trace mitral regurgitation. No mitral stenosis. Normal right heart and pulmonary pressures. Rigo Song MD (Electronically Signed) Final Date: 24 April 2025 09:16 S
== END 2025-04-23 13:49 | disposition home or self-care (01) ==
LOC: RAD 13:49
PROVIDERS: PCP Internal Medicine; Visit Provider Family Medicine
DX: R06.09 Other forms of dyspnea (principal); I34.9 Nonrheumatic mitral valve disorder, unspecified
CPT/HCPCS: 93306